=== PATIENT | male | born 1945 | race African-American/Black ===

== ENCOUNTER → 2018-07-12 | Day surgery (SDC) | payer MEDICARE, OTHER ==
[~2018-07-12] MED LIST: ALBU18HF IH; ALBUTEROL SULFATE 2.5 MG/3 ML NEBU. NEB PRN; ATROPINE 0.5 MG/5 ML DISP.SYRIN. IV PRN; FINA5TAB4 PO; FLUT1AER IH; FURO-69 PO; IV RINGERS SOLUTION,LACTATED 1,000 ML IV SCH; LEVO125T5 PO; LIDOCAINE 2% PF Vial for OR 5 ML VIAL. ONE; NALOXONE 0.4 MG/ML VIAL. IV PRN; OMEP40CA5 PO; ONDANSETRON PF 4 MG/2 ML VIAL. IV PRN; PARO20TA99 PO; POTA20TA4 PO; PROPOFOL 40 ML IV ONE; SIMV40TA3 PO; SOLI5TAB2 PO; TERA10CA3 PO
[2018-07-12 11:48] VITALS: BP 152/73
== END | disposition home or self-care (01) ==
LOC: SURG 09:46
PROVIDERS: ATTEND Internal Medicine Gastroenterology
DX: Z12.11 Encounter for screening for malignant neoplasm of colon (principal); Z86.010 Personal history of colon polyps; J45.909 Unspecified asthma, uncomplicated; E03.9 Hypothyroidism, unspecified; K21.9 Gastro-esophageal reflux disease without esophagitis; E78.5 Hyperlipidemia, unspecified; Z87.11 Personal history of peptic ulcer disease; N40.0 Benign prostatic hyperplasia without lower urinary tract symptoms; Z88.0 Allergy status to penicillin; Z98.890 Other specified postprocedural states; Z88.2 Allergy status to sulfonamides; Z88.8 Allergy status to other drugs, medicaments and biological substances; Z88.1 Allergy status to other antibiotic agents; Z79.899 Other long term (current) drug therapy
CPT/HCPCS: G0105; J2704; J7120; J2001

== ENCOUNTER → 2019-01-27 | Outpatient (CLI) | payer MEDICARE, OTHER ==
[2018-07-12 11:48] VITALS: BP 152/73
[~2019-01-27] MED LIST changes: -ALBU18HF IH; +ALBU2.5V8 IH; -ALBUTEROL SULFATE 2.5 MG/3 ML NEBU. NEB PRN; -ATROPINE 0.5 MG/5 ML DISP.SYRIN. IV PRN; -IV RINGERS SOLUTION,LACTATED 1,000 ML IV SCH; -LIDOCAINE 2% PF Vial for OR 5 ML VIAL. ONE; -NALOXONE 0.4 MG/ML VIAL. IV PRN; -ONDANSETRON PF 4 MG/2 ML VIAL. IV PRN; -PROPOFOL 40 ML IV ONE
--- NOTE | 2019-01-27 12:45 | RAD ---
Left lower extremity venous ultrasound, 01/27/2019 : History: Left leg pain Duplex evaluation including grayscale, color flow and spectral Doppler analysis was performed. The femoral and popliteal veins show no filling defects to suggest DVT. The visualized calf veins are unremarkable. IMPRESSION: There is no sonographic evidence of deep vein thrombosis in the left lower extremity Electronically signed by: Joni Gutiérrez MD (01/27/2019 12:42 PM) [facility]
== END | disposition home or self-care (01) ==
LOC: US 11:42
PROVIDERS: ATTEND Family Medicine
DX: M79.605 Pain in left leg (principal)
CPT/HCPCS: 93971

== ENCOUNTER 2019-06-11 00:38 | Observation (INO) | payer MEDICARE, OTHER ==
[~2019-06-11] VITALS: Ht 180.3 cm; Wt 103.4 kg
[~2019-06-11 00:38] MED LIST changes: +OMEP40CA45 PO; -OMEP40CA5 PO
--- NOTE | 2019-06-11 00:43 | ED.ADGEN ---
Past History Past Medical History: Anxiety, Hypertension Past Medical History Tremor Adult General Chief Complaint Chief Complaint ".. .I got this shaking thing.. Dr. Hillman.. gave me a medicine for it.. but I never took it because I read somewhere it could cause .. but I started having shaking and chest pain.. here on the Lt... sometimes it was sharp..." [facility] HPI Patient is a 73 year old male who presents with above hx and complaints of increased tremor and chest pain. Patient has had history of increased tremor for a number of months. Patient recently prescribed a medication which he did not remember but he did not take it to help relieve some of his chronic tremor. Tremors course and appears to be intentional. Is equal in both arms. Patient tonight her stated he developed "tremor "in his chest and chest pain. Pain is localized in sternal area some radiation to right shoulder. Pain reproducible with deep breaths, movement and palpation of sternum. Patient denies any trauma to his chest. Patient denies previous history of chest pain. Patient past history of elevated hypertension and cholesterol. Patient normally follows with Dr. Hillman. Patient states he was due to get a echo of his heart on 06/20 of this year. No history of trauma. No history of cough, no specific ill contacts. Patient does have a history of restless legs at night. Patient does have a history of anxiety disorder. Review of Systems Review of Systems Constitutional: Denies fever or chills [] Eyes: Denies change in visual acuity, redness, or eye pain [] HENT: Denies nasal congestion or sore throat [] Respiratory: Denies cough or shortness of breath [] Cardiovascular: No additional information not addressed in HPI [] GI: Denies abdominal pain, nausea, vomiting, bloody stools or diarrhea [] : Denies dysuria or hematuria [] Musculoskeletal: Denies back pain or joint pain [] Integument: Denies rash or skin lesions [] Neurologic: Denies headache, focal weakness or sensory changes . Patient []has complaints of tremor Endocrine: Denies polyuria or polydipsia [] All other systems were reviewed and found to be within normal limits, except as documented in this note. Family History Family History Noncontributory Current Medications Current Medications See nursing for home meds Allergies Allergies Allergies Coded Allergies Type Severity Reaction Last Updated Verified Penicillins Allergy Unknown 06/29/18 Yes Sulfa (Sulfonamide Antibiotics) Allergy Unknown 06/29/18 Yes ciprofloxacin Allergy Unknown 06/29/18 Yes doxycycline Allergy Unknown 06/29/18 Yes ibuprofen Allergy Unknown 06/29/18 Yes sulfamethoxazole Allergy Unknown 06/29/18 Yes tamsulosin Allergy Unknown 06/29/18 Yes tolterodine Allergy Unknown 06/29/18 Yes trazodone Allergy Unknown 06/29/18 Yes trimethoprim Allergy Unknown 06/29/18 Yes Physical Exam Physical Exam Constitutional: Moderate acute distress, non-toxic appearance. [] HENT: Normocephalic, atraumatic, bilateral external ears normal, oropharynx moist, no oral exudates, nose normal. [] Eyes: PERRLA, EOMI, conjunctiva normal, no discharge. Glasses. Neck: Normal range of motion, no tenderness, supple, no stridor. [] Cardiovascular: Bradycardia Heart rate regular rhythm, no murmur []PMI to the left Lungs & Thorax: Bilateral breath sounds equal apex on auscultation []does have some sternal tenderness on palpation Abdomen: Bowel sounds normal, soft, no tenderness, no masses, no pulsatile masses. [] Obese Skin: Warm, dry, no erythema, no rash. [] Back: No tenderness, no CVA tenderness. [] Extremities: No tenderness, no cyanosis, no clubbing, ROM intact, no edema. [] No cording noted in legs Neurologic: Alert and oriented X 3, moves extremities on request. Distal sensory intact., no focal deficits noted. []Does have an intentional tremor that is worse on intentional fine activity Psychologic: Affect very anxious, judgement normal, mood normal. [] Current Patient Data Vital Signs Vital Signs Date Time Temp Pulse Resp B/P (MAP) Pulse Ox O2 Delivery O2 Flow Rate FiO2 06/11/19 00:49 74 18 148/54 (85) 97 06/11/19 00:38 Room Air EKG EKG Interpretation EKG shows a sinus bradycardia at 60 bpm left axis. Some nonspecific anterior lateral changes. But no findings acute STEMI of contralateral changes[] Radiology/Procedures Radiology/Procedures [][address] [address] IMAGING REPORT Signed PATIENT: HUBERT GARAY BACCOUNT: [id number] : 1945 LOCATION: ER AGE: 73 SEX: M EXAM STATUS: REG ER ORD. PHYSICIAN: LAMBERTO LEON MD REASON: Chest pain PROCEDURE: CHEST PA & LATERAL CHEST PA LATERAL Technique: PA and lateral views of the chest were obtained. Clinical History: Chest pain Comparison: None. Findings: The heart and pulmonary vasculature appear within normal limits. There is peribronchial thickening bilaterally. The pleural margins are clear. There is mild elevation of the left hemidiaphragm. Impression: Peribronchial thickening could be reactive airway disease or viral pneumonia. Electronically signed by: Vijay Hernandez III, MD (06/11/2019 2:53 AM) [facility] [place] DICTATED AND SIGNED BY: VIJAY HERNANDEZ III, MD DATE: 06/11/19 0253 CC: KENNEDY HAYNES MD; LAMBERTO LEON MD ~ Course & Med Decision Making Course & Med Decision Making Pertinent Labs and Imaging studies reviewed. (See chart for details) Discussed presentation, testing and treatment plan with Dr. Nelson. Will admit with Cardiology and Neuro consult. Pt. Heart score 4. [] Final Impression Final Impression 1. CP-somewhat atypical, chest wall like presentation 2. HTN 3. Tremor- appears intentional 4. Elev. Gadiel d/t 1.4/0.3 5. Anxiety Disorder[] Dragon Disclaimer Dragon Disclaimer This electronic medical record was generated, in whole or in part, using a voice recognition dictation system. Dragon Disclaimer This chart was dictated in whole or in part using Voice Recognition software in a busy, high-work load, and often noisy Emergency Department environment. It may contain unintended and wholly unrecognized errors or omissions. LAMBERTO LEON MD Jun 11, 2019 00:43
--- NOTE | 2019-06-11 01:04 | EKG ---
[address] [address] Test Date: 2019-06-11 Test Time: 01:01:37 Pat Name: HUBERT GARAY Department: Room: Gender: M [employer]: : 1945 Requested By: LAMBERTO LEON Order Number: [id number] Reading MD: Measurements Intervals [place] Rate: 60 P: 39 KS: 136 QRS: -15 QRSD: 88 T: 19 QT: 420 QTc: 424 Interpretive Statements SINUS RHYTHM LEFTWARD AXIS R-S TRANSITION ZONE IN V LEADS DISPLACED TO THE RIGHT QRS(T) CONTOUR ABNORMALITY CONSIDER ANTEROLATERAL MYOCARDIAL DAMAGE POSSIBLY ABNORMAL ECG RI6.01 No previous ECG available for comparison
[2019-06-11] MEDS ORDERED: IV RINGERS SOLUTION,LACTATED 1,000 ML IV SCH (01:30)
[2019-06-11] MEDS ORDERED: ASPIRIN 81 MG TAB.CHEW PO ONE (01:30)
[2019-06-11 01:45] LABS: BASO # 0.1 x10^3/uL (0.0-0.2); BASO % 1 % (0-3); EOS # 0.2 x10^3/uL (0.0-0.7); EOS % 3 % (0-3); HEMATOCRIT 40.7 % (39.0-53.0); HEMOGLOBIN 13.4 g/dL (13.0-17.5); LYMPH # 1.4 x10^3/uL (1.0-4.8); LYMPH % 23 % (24-48); MEAN CORPUSCULAR HEMOGLOBIN 31 pg (25-35); MEAN CORPUSCULAR HGB CONC 33 g/dL (31-37); MEAN CORPUSCULAR VOLUME 95 fL (79-100); MONO # 0.6 x10^3/uL (0.0-1.1); MONO % 11 % (0-9); NEUT # 3.7 x10^3uL (1.8-7.7); NEUT % 62 % (31-73); PLATELET COUNT 188 x10^3/uL (140-400); RED BLOOD COUNT 4.29 x10^6/uL (4.30-5.70); RED CELL DISTRIBUTION WIDTH 13.5 % (11.5-14.5); WHITE BLOOD COUNT 5.9 x10^3/uL (4.0-11.0)
[2019-06-11 02:09] LABS: ALBUMIN 3.4 g/dL (3.4-5.0); CALCIUM 8.7 mg/dL (8.5-10.1); CREATININE 0.8 mg/dL (0.7-1.3); DIRECT BILIRUBIN 0.3 mg/dL (0.0-0.2); POTASSIUM 3.7 mmol/L (3.5-5.1); TOTAL BILIRUBIN 1.4 mg/dL (0.2-1.0); TOTAL PROTEIN 6.8 g/dL (6.4-8.2)
[2019-06-11 02:24] LABS: BARBITURATES NEG (NEG); BENZODIAZEPINES NEG (NEG); CANNABINOIDS NEG (NEG); COCAINE NEG (NEG); METHADONE NEG (NEG); OPIATES NEG (NEG); PHENCYCLIDINE NEG (NEG)
[2019-06-11 02:25] LABS: AMPHETAMINE/METHAMPHETAMINE NEG (NEG)
[2019-06-11 02:34] LABS: BACTERIA,URINE 0 /HPF (0-FEW); BILIRUBIN,URINE NEG (NEG); CLARITY,URINE CLEAR; COLOR,URINE YELLOW; GLUCOSE,URINE NEG (NEG); NITRITE,URINE NEG (NEG); RBC,URINE 0 /HPF (0-2); SQUAMOUS EPITHELIAL CELL,UR OCC /LPF; UROBILINOGEN,URINE 0.2 mg/dL (0.2 mg/dL); WBC,URINE 0 /HPF (0-4)
--- NOTE | 2019-06-11 02:55 | RAD ---
CHEST PA LATERAL Technique: PA and lateral views of the chest were obtained. Clinical History: Chest pain Comparison: None. Findings: The heart and pulmonary vasculature appear within normal limits. There is peribronchial thickening bilaterally. The pleural margins are clear. There is mild elevation of the left hemidiaphragm. Impression: Peribronchial thickening could be reactive airway disease or viral pneumonia. Electronically signed by: Nik Chung III, MD (06/11/2019 2:53 AM) [facility]
[2019-06-11] MEDS ORDERED: ACETAMINOPHEN 325 MG TABLET PO PRN (03:15)
[2019-06-11] MEDS ORDERED: ONDANSETRON PF 4 MG/2 ML VIAL. IV PRN (03:15)
[2019-06-11 04:51] VITALS: BP 147/74
[2019-06-11] MEDS ORDERED: ESZO3TAB28 PO (06:56)
[2019-06-11] MEDS ORDERED: ALBUTEROL SULFATE 2.5 MG/3 ML NEBU. IH PRN (07:30)
[2019-06-11] MEDS: ASPIRIN 81 MG TAB.CHEW PO SCH (07:45)
[2019-06-11] MEDS: POTASSIUM CHLORIDE 20 MEQ TABLET.ER. PO SCH (07:45)
[2019-06-11] MEDS: LEVOTHYROXINE 125 MCG TABLET PO SCH (07:45)
[2019-06-11] MEDS: OXYBUTYNIN CHLORIDE 5 MG TABLET PO SCH ×2 (07:45→22:26)
[2019-06-11] MEDS: FINASTERIDE 5 MG TABLET PO SCH (07:45)
[2019-06-11] MEDS: FUROSEMIDE 20 MG TABLET PO SCH (07:45)
[2019-06-11] MEDS: PANTOPRAZOLE 40 MG TABLET. PO SCH (07:45)
[2019-06-11] MEDS: TERAZOSIN 5 MG CAPSULE. PO SCH (07:46)
[2019-06-11] MEDS: ALBUTEROL SULFATE 2.5 MG/3 ML NEBU. NEB SCH ×4 (08:00→20:48)
[2019-06-11] MEDS: BUDESONIDE 0.5 MG/2 ML NEBU NEB SCH ×2 (08:00→20:00)
[2019-06-11] MEDS ORDERED: NON FORMULARY ITEM (Fluticasone/Vilanterol (Breo Ellipta 100-25 Mcg Inh) 1 PUFF) IH SCH (09:00)
[2019-06-11 10:46] LABS: THYROID STIM HORMONE (TSH) 2.726 uIU/mL (0.358-3.740)
[2019-06-11 11:53] VITALS: BP 121/64
--- NOTE | 2019-06-11 12:16 | PDOC2 ---
CONSULT Date of Admission DATE: 06/11/19 TIME: 12:16 Reason for Consult: Chest pain Referring Physician: Dr. Nelson Chief Complaint Chest pain and crawling sensation on the legs Source: Chart review, Patient Problem List Problems Medical Problems: (1) Chest pain Status: Acute History of Present Illness 73-year-old male presented with retrosternal chest pain that he described as sharp in nature not related to exertion or food intake. He also complained of 'crawling sensation' all over his legs. He denied any orthopnea/PND, palpitatio ns or syncope. Past Medical History Hypertension Anxiety Hyperlipidemia Hypothyroidism Social History Patient is a nonsmoker and nondrinker and denied any drug abuse Current Medications Current Medications Aspirin (Children'S Aspirin) 324 mg 1X ONCE PO Last administered on 06/11/19at 01:55; Start 06/11/19 at 01:30; Stop 06/11/19 at 01:31; Status DC Lactated Ringer's 1,000 ml @ 100 mls/hr Q10H IV Last administered on 06/11/19at 01:55; Start 06/11/19 at 01:30; Stop 06/11/19 at 11:29; Status DC Ondansetron HCl (Zofran) 4 mg PRN Q4HRS PRN IV NAUSEA/VOMITING; Start 06/11/19 at 03:15; Stop 06/12/19 at 03:14 Acetaminophen (Tylenol) 650 mg PRN Q4HRS PRN PO FEVER; Start 06/11/19 at 03:15; Stop 06/12/19 at 03:14 Aspirin (Children'S Aspirin) 81 mg DAILY PO Last administered on 06/11/19at 07:45; Start 06/11/19 at 09:00 Albuterol Sulfate (Ventolin) 18 mg PRN Q4HRS PRN IH FOR ASTHMA; Start 06/11/19 at 07:30; Stop 06/11/19 at 07:47; Status DC Finasteride (Proscar) 5 mg DAILY PO Last administered on 06/11/19at 07:45; Start 06/11/19 at 09:00 Furosemide (Lasix) 20 mg DAILY PO Last administered on 06/11/19at 07:45; Start 06/11/19 at 09:00 Levothyroxine Sodium (Synthroid) 125 mcg DAILY06 PO Last administered on 06/11/19at 07:45; Start 06/11/19 at 09:00 Potassium Chloride (Klor-Con) 20 meq DAILY PO Last administered on 06/11/19at 07:45; Start 06/11/19 at 09:00 Simvastatin (Zocor) 40 mg QHS PO ; Start 06/11/19 at 21:00 Zolpidem Tartrate (Ambien) 5 mg QHS PO ; Start 06/11/19 at 21:00 Non-Formulary Medication (Fluticasone/ Vilanterol (Breo Ellipta 100-25 Mcg Inh)) 1 puff DAILY IH ; Start 06/11/19 at 09:00; Stop 06/11/19 at 07:47; Status DC Pantoprazole Sodium (Protonix) 40 mg DAILYAC PO Last administered on 06/11/19at 07:45; Start 06/11/19 at 07:30 Oxybutynin Chloride (Ditropan) 5 mg BID PO Last administered on 06/11/19at 07:45; Start 06/11/19 at 09:00 Terazosin HCl (Hytrin) 10 mg DAILY PO Last administered on 06/11/19at 07:46; Start 06/11/19 at 09:00 Budesonide (Pulmicort) 0.5 mg RTBID NEB ; Start 06/11/19 at 08:00 Albuterol Sulfate (Ventolin) 2.5 mg RTQID NEB ; Start 06/11/19 at 08:00 Active Scripts Active Reported Lunesta (Eszopiclone) 3 Mg Tablet 2 Mg PO HS Finasteride 5 Mg Tablet 1 Tab PO DAILY Levothyroxine Sodium 125 Mcg Tablet 1 Tab PO DAILY Klor-Con M20 (Potassium Chloride) 20 Meq Tab.er.prt 1 Tab PO DAILY Lasix (Furosemide) 20 Mg Tablet 1 Tab PO DAILY Simvastatin 40 Mg Tablet 1 Tab PO QHS Omeprazole 40 Mg Capsule.dr 1 Cap PO DAILY Vesicare (Solifenacin Succinate) 5 Mg Tablet 1 Tab PO DAILY Ventolin Hfa Inhaler (Albuterol Sulfate) 18 Gm Hfa.aer.ad 1 Puff IH PRN Q4HRS PRN Breo Ellipta 100-25 Mcg Inh (Fluticasone/Vilanterol) 1 Each Aer.pow.ba 1 Puff IH DAILY Terazosin Hcl 10 Mg Capsule 1 Cap PO DAILY Allergies: Coded Allergies: Penicillins (Verified Allergy, Unknown, 06/29/18) Sulfa (Sulfonamide Antibiotics) (Verified Allergy, Unknown, 06/29/18) ciprofloxacin (Verified Allergy, Unknown, 06/29/18) doxycycline (Verified Allergy, Unknown, 06/29/18) ibuprofen (Verified Allergy, Unknown, 06/29/18) sulfamethoxazole (Verified Allergy, Unknown, 06/29/18) tamsulosin (Verified Allergy, Unknown, 06/29/18) tolterodine (Verified Allergy, Unknown, 06/29/18) trazodone (Verified Allergy, Unknown, 06/29/18) trimethoprim (Verified Allergy, Unknown, 06/29/18) PSYCHOLOGICAL ROS: No: Hallucinations Eyes: No: Loss of vision HEENT: No: Epistaxis Respiratory: No: Hemoptysis Cardiovascular: yes: Chest Pain Gastrointestinal: No: Vomiting, Diarrhea Genitourinary: No: Henaturia Neurological: No: Seizures Skin: No: Rash General: Alert, Oriented X3 HEENT: Atraumatic, PERRLA Lungs: Clear to auscultation Heart: Regular rate Abdomen: Soft Extremities: No edema Psych/Mental Status: Mood NL VITALS Vital Signs Date Time Temp Pulse Resp B/P (MAP) Pulse Ox O2 Delivery O2 Flow Rate FiO2 06/11/19 11:53 97.9 79 20 121/64 (83) 98 Room Air Labs Laboratory Tests Test 06/11/19 01:15 06/11/19 01:35 06/11/19 01:57 06/11/19 07:00 White Blood Count 5.9 x10^3/uL (4.0-11.0) Red Blood Count 4.29 x10^6/uL (4.30-5.70) Hemoglobin 13.4 g/dL (13.0-17.5) Hematocrit 40.7 % (39.0-53.0) Mean Corpuscular Volume 95 fL (79-100) Mean Corpuscular Hemoglobin 31 pg (25-35) Mean Corpuscular Hemoglobin Concent 33 g/dL (31-37) Red Cell Distribution Width 13.5 % (11.5-14.5) Platelet Count 188 x10^3/uL (140-400) Neutrophils (%) (Auto) 62 % (31-73) Lymphocytes (%) (Auto) 23 % (24-48) Monocytes (%) (Auto) 11 % (0-9) Eosinophils (%) (Auto) 3 % (0-3) Basophils (%) (Auto) 1 % (0-3) Neutrophils # (Auto) 3.7 x10^3uL (1.8-7.7) Lymphocytes # (Auto) 1.4 x10^3/uL (1.0-4.8) Monocytes # (Auto) 0.6 x10^3/uL (0.0-1.1) Eosinophils # (Auto) 0.2 x10^3/uL (0.0-0.7) Basophils # (Auto) 0.1 x10^3/uL (0.0-0.2) Sodium Level 140 mmol/L (136-145) Potassium Level 3.7 mmol/L (3.5-5.1) Chloride Level 103 mmol/L (98-107) Carbon Dioxide Level 28 mmol/L (21-32) Anion Gap 9 (6-14) Blood Urea Nitrogen 11 mg/dL (8-26) Creatinine 0.8 mg/dL (0.7-1.3) Estimated GFR (Cockcroft-Gault) 115.0 Glucose Level 98 mg/dL (70-99) Calcium Level 8.7 mg/dL (8.5-10.1) Magnesium Level 2.0 mg/dL (1.8-2.4) Total Bilirubin 1.4 mg/dL (0.2-1.0) Direct Bilirubin 0.3 mg/dL (0.0-0.2) Aspartate Amino Transf (AST/SGOT) 22 U/L (15-37) Alanine Aminotransferase (ALT/SGPT) 20 U/L (16-63) Alkaline Phosphatase 95 U/L (46-116) Creatine Kinase 205 U/L (39-308) Troponin I Quantitative < 0.017 ng/mL (0-0.055) < 0.017 ng/mL (0-0.055) CH-Bzy-N-Type Natriuretic Peptide 34 pg/mL (0-124) Total Protein 6.8 g/dL (6.4-8.2) Albumin 3.4 g/dL (3.4-5.0) Triglycerides Level 33 mg/dL (0-150) Cholesterol Level 127 mg/dL (0-200) LDL Cholesterol, Calculated 65 mg/dL (0-100) VLDL Cholesterol, Calculated 6 mg/dL (0-40) Non-HDL Cholesterol Calculated 71 mg/dL (0-129) HDL Cholesterol 56 mg/dL (40-60) Cholesterol/HDL Ratio 2.0 Lipase 63 U/L (73-393) Thyroid Stimulating Hormone (TSH) 2.726 uIU/mL (0.358-3.740) Prothrombin Time 11.0 SEC (9.4-11.4) Prothromb Time International Ratio 1.1 (0.9-1.1) Activated Partial Thromboplast Time 27 SEC (23-33) D-Dimer (Dominique) 0.33 mg/L (0.00-0.50) Urine Collection Type Unknown Urine Color Yellow Urine Clarity Clear Urine pH 6.0 Urine Specific [place] 1.010 Urine Protein Neg (NEG-TRACE) Urine Glucose (UA) Neg mg/dL (NEG) Urine Ketones (Stick) Neg mg/dL (NEG) Urine Blood Neg (NEG) Urine Nitrite Neg (NEG) Urine Bilirubin Neg (NEG) Urine Urobilinogen Dipstick 0.2 mg/dL (0.2 mg/dL) Urine Leukocyte Esterase Neg (NEG) Urine RBC 0 /HPF (0-2) Urine WBC 0 /HPF (0-4) Urine Squamous Epithelial Cells Occ /LPF Urine Bacteria 0 /HPF (0-FEW) Urine Opiates Screen Neg (NEG) Urine Methadone Screen Neg (NEG) Urine Barbiturates Neg (NEG) Urine Phencyclidine Screen Neg (NEG) Urine Amphetamine/Methamphetamine Neg (NEG) Urine Benzodiazepines Screen Neg (NEG) Urine Cocaine Screen Neg (NEG) Urine Cannabinoids Screen Neg (NEG) Urine Ethyl Alcohol Neg (NEG) Assessment/Plan 1. Chest pain with atypical features. Myocardial infarction has been ruled out. Plan for outpatient 2-D echo to assess LV function and Lexiscan nuclear stress test to rule out ischemia. 2. Hypertension: Well-controlled 3. Hyperlipidemia: Continue statins 4. Hypothyroidism: On levo thyroxine 5. Tremors, ' crawling sensation' on legs ? Neuropathy: Per IM Thank you for your consultation DELPHINE BARRAZA MD Jun 11, 2019 12:16
[2019-06-11 15:26] VITALS: BP 130/71
--- NOTE | 2019-06-11 17:53 | HP ---
ADMIT DATE: 06/11/2019 HISTORY OF PRESENT ILLNESS: The patient is a 73-year-old -[place] male patient who came to the Emergency Room complaining of chest pain, retrosternal. He has also complained of tremors that have been increasing for the last few months. He was prescribed medication which he did not take. His tremors are coarse and appear to be intentional. They are equal in both arms. The patient developed pain that is localized to the sternal area with some radiation to his left shoulder. The pain is reproducible with deep breath movement on palpation of the sternum. The pain started at rest, lasted only for a few seconds, not associated with any nausea or vomiting. No shortness of breath, no diaphoresis. He was seen in the Emergency Room and was extensively evaluated. His EKG showed that he was in sinus bradycardia at 60 beats per minute, some nonspecific anterolateral changes, but no acute ST segment elevation myocardial infarction. His chest x-ray showed that the heart and pulmonary vasculature appears within normal limits. There is peribronchial thickening bilaterally. The pleural margins are clear. There is mild elevation of the left hemidiaphragm. He has had lab work done. First set of cardiac enzymes showed troponin to be less than 0.017. His white cell count was normal. His prothrombin time, INR, aPTT and D-dimer were normal. Urinalysis was unremarkable and toxic screen was negative. He was admitted to do 2 more sets of cardiac enzyme and to consult the cardiology team. PAST MEDICAL HISTORY: Significant for hypertension, hyperlipidemia, hypothyroidism, bronchial asthma, osteoarthritis, benign prostatic hypertrophy. PAST SURGICAL HISTORY: He did have periumbilical hernia repair when he was 6 years old. ALLERGIES: HE IS ALLERGIC TO PENICILLIN, SULFA DRUGS, CIPROFLOXACIN, DOXYCYCLINE, IBUPROFEN, SULFAMETHOXAZOLE, FLOMAX, DETROL AND TRAZODONE. MEDICATIONS: He is currently on following medications: He is on albuterol sulfate for Ventolin 1 puff every 4 hours, simvastatin 40 mg at bedtime, terazosin 10 mg daily. He is on Lunesta 2 mg at bedtime, potassium chloride 20 mEq daily, furosemide 20 mg p.o. daily, Breo Ellipta 1 puff daily, omeprazole 40 mg once a day, levothyroxine sodium 125 mcg once a day, VESIcare 5 mg daily and finasteride 5 mg once a day. FAMILY HISTORY: He has 2 sisters, are , 1 older sister because of PE and the younger one drug overdose. He has 3 brothers, 1 of alcoholic liver disease and cancer, the other 2 brothers are still alive. His father at the age of 95 because of bladder cancer and mother at the age of 95. The cause of her is not clear. SOCIAL HISTORY: Never , has no children. He does not smoke, drink alcohol or use recreational drugs. He used to work in the [employer] at [place]. He is retired. REVIEW OF SYSTEMS: Denied any blurring of vision. He has bilateral cataracts that did not require surgical intervention. He actually has cataract and glaucoma, but denied any macular degeneration. Denied any earache, tinnitus or sensorineural deafness. Denied any nosebleeds, stuffy nose or postnasal drip. Denied any sore throat, sore tongue, toothache, hoarseness of voice or difficulty swallowing. Denied any nausea, vomiting, diarrhea or constipation. Denied any hematemesis, melena or hematochezia. Denied any dysuria, frequency or hematuria. Did complain of chest pain, but denied any shortness of breath, orthopnea, paroxysmal nocturnal dyspnea. Denied any cough, phlegm or hemoptysis. Denied any chills, rigors or fever. His biggest complaint is back pain. He somehow has distorted image of his back, although I cannot see anything abnormal in particular. He does not have any scoliosis or kyphoscoliosis. He also complained of restless leg syndrome. PHYSICAL EXAMINATION: GENERAL: When I examined him, he looked well and was clearly in no apparent respiratory distress. No pallor, jaundice, cyanosis or thyromegaly. No jugular venous distention. No limb edema. VITAL SIGNS: His heart rate was 70, blood pressure 147/74, temperature was 97.0, respiratory rate 20, and oxygen saturation was 97%. HEAD, EYES, EARS, NOSE AND THROAT: Showed normocephalic, atraumatic. NECK: Supple. HEART: Showed normal first and second heart sounds. No gallop, rub or murmur. CHEST: Clear to auscultation. No crepitation or rhonchi. ABDOMEN: Distended, soft, nontender. No guarding or rigidity. No organomegaly. All hernial orifice intact. Bowel sounds normal. NEUROLOGIC: He was awake, alert, responding appropriately. All cranial nerves intact. EXTREMITIES: He moves extremities without difficulty, ambulates without assistance or assistive devices. LABORATORY DATA: On admission showed that his white cell count was 5900, hemoglobin 13, hematocrit 41, MCV 95, and platelet count of 188,000 with normal manual differential. His prothrombin time, INR and aPTT, D-dimer were all normal. His chemistry showed a serum sodium 140, potassium 3.7, chloride 103, bicarbonate 28, anion gap of 9, BUN 11, creatinine 0.8, estimated GFR was 115 mL per minute. His glucose was 98, calcium was 8.7, magnesium 2. Total bilirubin is 1.4. AST, ALT, alkaline phosphatase were normal. CK was only 205. First set of troponin was less than 0.017. His beta natriuretic peptide was 34. Total protein was 6.8, albumin 3.4. His serum triglycerides were 33, total cholesterol was 127, LDL cholesterol was 65, VLDL was 66, HDL cholesterol of 56, and ratio was 2 only. Lipase was 63 and TSH was normal at 2.726. Urinalysis was unremarkable and toxic screen was negative. His chest x-ray showed that the patient's heart and pulmonary vasculature appeared within normal limits. There is peribronchial thickening bilaterally. The pleural margins are clear. There is mild elevation of the left hemidiaphragm. ASSESSMENT AND PLAN: In summary, this is a 73-year-old male patient who came in with fairly atypical chest pain. First set of cardiac enzyme was less than 0.017. He will be admitted and have 2 more sets of cardiac enzyme. We will consult the cardiology team and decide on further management accordingly. I will also start him for his restless leg syndrome on Requip at night time and see how he does with that. WILLIAM SEGURA MD DR: TRACIE/magda JOB#: [id number] / [id number]
[2019-06-11 20:08] VITALS: BP 126/57
[2019-06-11] MEDS ORDERED: rOPINIRole 0.5 MG TABLET. PO SCH (21:00)
[2019-06-11] MEDS ORDERED: ZOLPIDEM 5 MG TABLET. PO SCH (21:00)
[2019-06-11] MEDS ORDERED: SIMVASTATIN 40 MG TABLET. PO SCH (21:00)
[2019-06-11 23:37] VITALS: BP 118/63
[2019-06-12] MEDS: ALBUTEROL SULFATE 2.5 MG/3 ML NEBU. NEB SCH ×2 (05:29→10:40)
[2019-06-12 05:54] VITALS: BP 118/62
[2019-06-12] MEDS: LEVOTHYROXINE 125 MCG TABLET PO SCH (06:17)
[2019-06-12 06:48] LABS: BASO # 0.1 x10^3/uL (0.0-0.2); BASO % 1 % (0-3); EOS # 0.1 x10^3/uL (0.0-0.7); EOS % 2 % (0-3); HEMATOCRIT 41.8 % (39.0-53.0); LYMPH # 1.4 x10^3/uL (1.0-4.8); LYMPH % 23 % (24-48); MEAN CORPUSCULAR HEMOGLOBIN 32 pg (25-35); MEAN CORPUSCULAR HGB CONC 34 g/dL (31-37); MEAN CORPUSCULAR VOLUME 95 fL (79-100); MONO # 0.6 x10^3/uL (0.0-1.1); MONO % 10 % (0-9); NEUT % 64 % (31-73); PLATELET COUNT 182 x10^3/uL (140-400); RED BLOOD COUNT 4.41 x10^6/uL (4.30-5.70); RED CELL DISTRIBUTION WIDTH 13.5 % (11.5-14.5); WHITE BLOOD COUNT 6.2 x10^3/uL (4.0-11.0)
[2019-06-12 07:10] LABS: ALBUMIN 3.3 g/dL (3.4-5.0); ALBUMIN/GLOBULIN RATIO 0.9 (1.0-1.7); CALCIUM 8.8 mg/dL (8.5-10.1); CREATININE 0.9 mg/dL (0.7-1.3); GFR 100.4; POTASSIUM 3.9 mmol/L (3.5-5.1); TOTAL BILIRUBIN 1.7 mg/dL (0.2-1.0); TOTAL PROTEIN 6.8 g/dL (6.4-8.2)
[2019-06-12] MEDS: FINASTERIDE 5 MG TABLET PO SCH (08:21)
[2019-06-12] MEDS: OXYBUTYNIN CHLORIDE 5 MG TABLET PO SCH (08:22)
[2019-06-12] MEDS: POTASSIUM CHLORIDE 20 MEQ TABLET.ER. PO SCH (08:22)
[2019-06-12] MEDS: ASPIRIN 81 MG TAB.CHEW PO SCH (08:22)
[2019-06-12] MEDS: TERAZOSIN 5 MG CAPSULE. PO SCH (08:22)
[2019-06-12] MEDS: PANTOPRAZOLE 40 MG TABLET. PO SCH (08:22)
[2019-06-12] MEDS: FUROSEMIDE 20 MG TABLET PO SCH (08:22)
[2019-06-12] MEDS: BUDESONIDE 0.5 MG/2 ML NEBU NEB SCH (10:40)
[2019-06-12 11:06] VITALS: BP 115/62
[2019-06-12] MEDS ORDERED: ROPI0.25 PO (13:26)
--- NOTE | 2019-06-12 13:30 | PDOC ---
PROVIDER NOTE PROVIDER NOTE PROVIDER NOTE S: No new events overnight. No further CP O: VSS Lungs clr Heart tones normal No edema. Labs reviewed. Impression: 1. Atypical chest pain with risk factors. Plan: 1. Continue present meds. Will consider outpt echo and MPI to rule out occult CAD. Thanks. ok to DC from CV standpoint. discussed with LOIDA Merino MD Jun 12, 2019 13:30
--- NOTE | 2019-06-12 14:38 | CONS ---
DATE OF CONSULTATION: 06/11/2019 NEUROLOGY CONSULTATION REFERRING PHYSICIAN: Kathie Nelson MD REASON FOR CONSULTATION: Discomfort feeling of the legs, rule out neuropathy versus restless leg syndrome. HISTORY OF PRESENT ILLNESS: This is a 73-year-old right-handed -Swedish male who was admitted through Emergency Room after he presented with chief complaint of recurrent left-sided chest pain without radiation to the shoulders, diaphoresis or shortness of breath. Neuro consult was requested because the patient started having discomfort feeling of both legs yesterday night. He tried to get up of the bed and walk. Then, he felt better. He also complains of intermittent numbness and paresthesia of the feet; however, he denies weakness of the lower extremities, lower back pain, bowel or bladder dysfunctions. The patient denies any recent back injuries or fall. PAST MEDICAL HISTORY: Significant for hypertension, anxiety, hyperlipidemia, hypothyroidism, history of benign prostate hypertrophy. SOCIAL HISTORY: The patient is single. He denies smoking, but he drinks 1 beer monthly. He denies illicit drug use. CURRENT MEDICATIONS: Zolpidem 5 mg daily, simvastatin 40 mg daily, Hytrin 10 mg daily, oxybutynin 5 mg b.i.d., levothyroxine 125 mcg daily, furosemide 20 mg daily, Proscar 5 mg daily, aspirin 81 mg daily, albuterol nebulizer, Pulmicort inhaler, Tylenol and Zofran p.r.n. ALLERGIES: PENICILLIN, SULFA DRUGS, CIPROFLOXACIN, DOXYCYCLINE, IBUPROFEN, SULFAMETHOXAZOLE, TAMSULOSIN, TOLTERODINE, TRAZODONE. REVIEW OF SYSTEMS: A 10-point review of system was performed as mentioned above in history of present illness. PHYSICAL EXAMINATION: GENERAL: Obese, alert male, not in acute distress. He weighs 103 pounds. VITAL SIGNS: Blood pressure 130/71, respiratory rate 20, pulse is 60, temperature is 98.2, oxygen saturation 97% on room air. HEENT: Normocephalic, atraumatic, otherwise unremarkable. NECK: Supple. Negative for carotid bruit, lymphadenopathy or thyromegaly. LUNGS: Clear to A and P. CARDIOVASCULAR: Regular rate and rhythm, normal S1, S2. There is no S3, S4 or murmurs. ABDOMEN: Soft. Bowel sounds positive. EXTREMITIES: Negative for cyanosis, clubbing or pitting edema. NEUROLOGICAL: MENTAL STATUS: The patient is alert and oriented x 3. Speech is fluent. There is no language dysfunction. Memory, judgment and abstract thinking are fair. The patient denies hallucination or delusion. CRANIAL NERVES: Visual nguyen are full. The pupils are reactive to light and accommodation. The extraocular movements are intact. There is no nystagmus. There is no facial motor or sensory deficit. Hearing is intact bilaterally. The palate is elevated symmetrically. Sternocleidomastoid muscles are powerful bilaterally. The patient shrugs his shoulders symmetrically, protrudes his tongue in the midline without fasciculation or atrophy. MOTOR EXAMINATION: No focal muscle bulk was seen. The tone is normal. The strength is 5/5 throughout. Sensory examination revealed diminished pinprick and light touch senses in patchy distributions in both lower extremities. Deep tendon reflexes were symmetric and hypoactive with absent Achilles responses. Gait: The stance is steady. The patient has normal sdmidr-hr-rhvq and cxtk-xk-jjym, rapid alternative movements and rapid repetitive movements. DIAGNOSTIC DATA: Chest x-ray revealed bronchial thickening and probably reactive airway disease or viral pneumonia. LABORATORY DATA: CBC revealed white blood cells of 5.9 thousand, hemoglobin 13.4, hematocrit 40.7, platelet count 188,000. Chemistry revealed sodium of 140, potassium 3.7, chloride 103, CO2 of 28, BUN 11, creatinine 0.8, glucose 98, bilirubin is 1.4. Liver enzymes are normal. Troponin level is normal. Lipid profile is normal. TSH is normal with low lipase at 63. Urinalysis revealed no evidence of urinary tract infections. Urine drug screen is negative. PT is 11, INR 1.1 and PTT is 27 with D-dimer of 0.3. IMPRESSION: 1. Atypical chest pain. 2. Discomfort feeling of the lower extremities, improved by walking, rule out restless leg syndrome versus peripheral neuropathy. RECOMMENDATIONS: 1. We will continue with current medical care. 2. If the patient has similar discomfort tonight, we will start him on small dose of ropinirole 0.25 mg at bedtime. 3. We will arrange for EMG/NCS of the lower extremities to rule out peripheral neuropathy versus lumbosacral radiculopathy. M Dain STEWART MD DR: BAILEY/magda JOB#: [id number] / [id number]
--- NOTE | 2019-06-12 15:32 | DS ---
DATE OF DISCHARGE: 06/12/2019 HOSPITAL COURSE: The patient is a 73-year-old male patient who came with a complaint of retrosternal chest pain, described as sharp in nature and not related to exertion or food intake. He also complained of a crawling sensation all over his legs. He was extensively investigated in the Emergency Room and his first set of cardiac enzyme was less than 0.017, was admitted, has had to do more cardiac enzymes and check his fasting lipid profile and consult the metal sander, has 2 sets of cardiac enzymes that ruled out myocardial infarction. His triglycerides were 33, total cholesterol 127, LDL was 65, VLDL was 6, and HDL cholesterol was 56 and the ratio was 2. His TSH was normal 2.76. He was seen by the neurologist and apparently he was diagnosed with restless syndrome and was discharged and started on Requip. When I saw him today, he looked well and was clearly in no apparent respiratory distress. On questioning him, he denied any further episodes of chest pain. Denied any shortness of breath, orthopnea, paroxysmal nocturnal dyspnea. A decision was made to discharge him home to arrange for a stress test as well as an echocardiogram as an outpatient. PHYSICAL EXAMINATION: GENERAL: When I saw him this afternoon, he looked well and was clearly in no apparent respiratory distress. No pallor, jaundice, cyanosis or thyromegaly. No jugular venous distension. No limb edema. VITAL SIGNS: His heart rate was 59, blood pressure was 115/62, temperature was 97.7, respiratory rate 20, and oxygen saturation was 96% on room air. HEAD, EYES, EARS, NOSE AND THROAT: Normocephalic, atraumatic. NECK: Supple. HEART: Showed normal first and second heart sounds. No gallop or murmur. CHEST: Clear to auscultation. No crepitation or rhonchi. ABDOMEN: Distended, soft, nontender. NEUROLOGIC: He is awake, alert, responding appropriately. All cranial nerves intact. He moves extremities without difficulty, ambulates without assistance or assistive devices. His intake was 1000. No output was recorded. LABORATORY DATA: This morning showed his white cell count was 6200, hemoglobin 14, hematocrit 42, MCV 95, and platelet count 282,000. His chemistry showed a serum sodium 141, potassium 3.9, chloride 105, bicarbonate 28, anion gap of 8, BUN 7, creatinine 0.9, estimated GFR was 100 mL per minute, his glucose was 90, calcium was 8.8. Total bilirubin, AST, ALT, alkaline phosphatase were normal. Total protein was 6.8, albumin was 3.3. His prothrombin time, INR, aPTT and D-dimer are all normal. Urinalysis was essentially unremarkable. Toxic screen was negative and his hepatitis A IgM antibody, hepatitis B surface antigen, hepatitis B core IgM antibody and hepatitis C IgG antibodies were all nonreactive. DISCHARGE MEDICATIONS: The patient was discharged home to continue on Requip 0.5 mg at bedtime. Continue with albuterol sulfate 1 puff every 4 hours, Lunesta 3 mg at bedtime, finasteride 5 mg daily, Breo Ellipta 1 puff daily, furosemide 20 mg once a day, levothyroxine sodium 125 mcg once a day, omeprazole 40 mg daily, potassium chloride 20 mEq once a day, simvastatin 40 mg once a day, solifenacin succinate for VESIcare 5 mg once a day and terazosin 10 mg at bedtime. FINAL DISCHARGE DIAGNOSES: 1. Atypical chest pain, myocardial infarction was ruled out. 2. Hypertension, well controlled. 3. Hyperlipidemia, hypothyroidism, restless leg syndrome for which he was started on Requip. WILLIAM SEGURA MD DR: TRACIE/magda JOB#: [id number] / [id number]
--- NOTE | 2019-06-12 18:54 | PN ---
DATE: REFERRING PHYSICIAN: Dr. Nelson SUBJECTIVE: The patient denies any new medical or neurological complaints; however, he stated he still has intermittent "quivering feeling in the lower extremities, mainly towards the night." He was given ropinirole 0.5 mg last night and he slept comfortably. The patient stated the symptoms usually alleviated by walking. He denies chest pain, shortness of breath or palpitation, dysarthria or dysphagia. OBJECTIVE: GENERAL: Well-developed, well-nourished -[place] male, not in acute distress. VITAL SIGNS: Blood pressure 118/62, respiratory rate 20, pulse is 60 and regular, temperature 98.1, oxygen saturation 96% on room air. HEENT: Normocephalic, atraumatic, otherwise unremarkable. NECK: Supple. Negative for carotid bruit, lymphadenopathy or thyromegaly. LUNGS: Clear to A and P. CARDIOVASCULAR: Regular rate and rhythm, normal S1, S2. There is no S3, S4 or murmurs. ABDOMEN: Soft. Bowel sounds positive. EXTREMITIES: Negative for cyanosis, clubbing or edema. NEUROLOGICAL EXAM: Mental Status: The patient is alert and oriented x 3. Speech is fluent. There is no language dysfunction. Memory, judgment and abstract thinking are normal. The patient denies hallucination or delusion. Cranial nerves are intact. No focal motor deficit. Sensory examination revealed diminished pinprick and light touch senses in patchy distributions in distal lower extremities. Deep tendon reflexes were symmetric and hypoactive with absent Achilles responses. Gait: The stance is steady. The patient has normal syqmzs-xb-zrgh and eshn-yd-hyoi. LABORATORY DATA: CBC revealed white blood cells 6.2 thousand, hemoglobin 14, hematocrit 41.8, platelet count 182,000. Chemistry revealed sodium of 141, potassium 3.9, chloride 105, CO2 of 28, BUN 7, creatinine 0.9, glucose is 90, calcium is 8.8. Troponin level was normal. Cardiac enzymes were normal. IMPRESSION: 1. Atypical chest pain, with normal cardiac enzymes and EKG. 2. Restless leg syndrome. 3. Rule out peripheral neuropathy of the lower extremities. 4. Multiple medical problems including hypertension, hyperlipidemia, hypothyroidism. RECOMMENDATIONS: 1. Continue with current management initiated by Dr. Nelson and Cardiology. 2. Continue with ropinirole 0.5 mg nightly. 3. We will arrange for EMG/NCS of the lower extremities to rule out entrapment neuropathy versus lumbosacral radiculopathy. M Dain STEWART MD DR: BAILEY/magda JOB#: [id number] / [id number]
== END 2019-06-12 14:17 | disposition home or self-care (01) ==
LOC: ER 00:38 → 1 SOUTH 01:00 → INTOOBSV 01:00
PROVIDERS: ADMIT Internal Medicine; ATTEND Internal Medicine
DX: R07.89 Other chest pain (principal); R25.1 Tremor, unspecified; I10 Essential (primary) hypertension; F41.9 Anxiety disorder, unspecified; E78.5 Hyperlipidemia, unspecified; E03.9 Hypothyroidism, unspecified; E80.6 Other disorders of bilirubin metabolism; M19.90 Unspecified osteoarthritis, unspecified site; J45.909 Unspecified asthma, uncomplicated; N40.0 Benign prostatic hyperplasia without lower urinary tract symptoms; Z79.899 Other long term (current) drug therapy; Z88.0 Allergy status to penicillin; Z88.2 Allergy status to sulfonamides; Z88.1 Allergy status to other antibiotic agents; Z88.6 Allergy status to analgesic agent; Z88.8 Allergy status to other drugs, medicaments and biological substances
CPT/HCPCS: 36415; 71046; 80048; 80053; 80061; 80076; 80307; 81001; 82550; 83690; 83735; 83880; 84443; 84484; 85025; 85379; 85610; 85730; 86705; 86709; 86803; 87340; 93005; 94640; 99284; G0238; G0378; G0379; J7120; J7613; J7626; 94760

== ENCOUNTER → 2019-06-20 | Outpatient (CLI) | payer MEDICARE, OTHER ==
[2019-06-12 11:06] VITALS: BP 115/62
[~2019-06-20] MED LIST changes: +ESZO3TAB28 PO; +ROPI0.25 PO; +SIMV40TA18 PO; -SIMV40TA3 PO
--- NOTE | 2019-06-20 16:53 | CARD ---
MR#: [id number] Date of Study: 06/20/2019 Ordering Physician: CESAR NJ, Referring Physician: CESAR NJ, Tech: Concepcion Gupta APPROVED REPORT EXAM: Two-dimensional and M-mode echocardiogram with Doppler and color Doppler. Other Information Quality : AverageHR: 64bpm INDICATION Chest Pain 2D DIMENSIONS RVDd2.8 (2.9-3.5cm)Left Atrium(2D)3.9 (1.6-4.0cm) IVSd0.9 (0.7-1.1cm)Aortic Root(2D)3.4 (2.0-3.7cm) LVDd5.5 (3.9-5.9cm)LVOT Diameter2.1 (1.8-2.4cm) PWd1.1 (0.7-1.1cm)LVDs4.7 (2.5-4.0cm) FS (%) 14.7 %SV44.7 ml LVEF(%)30.9 (>50%) Aortic Valve AoV Peak Davey.145.7cm/sAoV VTI34.2cm AO Peak GR.8.5mmHgLVOT Peak Davey.89.7cm/s LVOT VTI 21.76cmAO Mean GR.5mmHg REYNA (VMAX)2.03gg2MTL (VTI)2.12cm2 Mitral Valve MV E Ivjmlkve05.0cm/sMV DECEL UKJL759yc MV A Dzuqucoo18.1cm/sE/A Ratio1.2 Pulmonary Valve PV Peak Yazspxkj77.7cm/sPV Peak Grad.3mmHg Tricuspid Valve TR P. Wzuklxrs453xq/sRAP AGIGMERM9ldEn TR Peak Gr.03vaVeGSRR64rzRb Pulmonary Vein S1 Ekhfxhib29.1cm/sD2 Jyqfwlnr89.5cm/s LEFT VENTRICLE The left ventricle is normal size. There is borderline to mild concentric left ventricular hypertroph y. The left ventricular systolic function is normal and the ejection fraction is within normal range. The Ejection Fraction is 50-55%. There is normal LV segmental wall motion. Transmitral Doppler flow pattern is Grade II-pseudonormal filling dynamics. RIGHT VENTRICLE The right ventricle is normal size. There is normal right ventricular wall thickness. The right ventr icular systolic function is normal. ATRIA The left atrium is mildly dilated. The right atrium is moderately dilated. The interatrial septum is intact with no evidence for an atrial septal defect or patent foramen ovale as noted on 2-D or Dopple r imaging. AORTIC VALVE The aortic valve is normal in structure and function. Doppler and Color Flow revealed no significant aortic regurgitation. There is no significant aortic valvular stenosis. MITRAL VALVE The mitral valve is normal in structure and function. There is no evidence of mitral valve prolapse. There is no mitral valve stenosis. Doppler and Color-flow revealed trace mitral regurgitation. TRICUSPID VALVE The tricuspid valve is normal in structure and function. Doppler and Color Flow revealed trace tricus pid regurgitation with an estimated PAP of 42 mmHg. There is no tricuspid valve stenosis. PULMONIC VALVE The pulmonic valve is not well visualized. Doppler and Color Flow revealed no pulmonic valvular regur gitation. There is no pulmonic valvular stenosis. GREAT VESSELS The aortic root is normal in size. IVC Doppler evaluation reveals normal flow patterns. PERICARDIAL EFFUSION There is no evidence of significant pericardial effusion. Critical Notification Critical Value: No <Conclusion> The left ventricular systolic function is normal and the ejection fraction is within normal range. Th e Ejection Fraction is 50-55%. There is normal LV segmental wall motion. Doppler and Color Flow revealed trace tricuspid regurgitation with an estimated PAP of 42 mmHg. Signed by : Filipe Gastelum, Electronically Approved : 06/20/2019 16:53:09
== END | disposition home or self-care (01) ==
LOC: ECHO 13:48
PROVIDERS: ATTEND Family Medicine
DX: I11.9 Hypertensive heart disease without heart failure (principal)
CPT/HCPCS: 93306

== ENCOUNTER → 2019-08-03 | Outpatient (CLI) | payer MEDICARE, OTHER ==
[~2019-08-03] MED LIST changes: +REGADENOSON 0.4 MG/5 ML DISP.SYRIN. IV ONE
--- NOTE | 2019-08-03 13:44 | RAD ---
MR#: [id number] Date of Study: 08/03/2019 Ordering Physician: DELPHINE CHAVEZ Referring Physician: FANNY BENTON Tech: RT Cadence (R) (N) APPROVED REPORT Test Type: Pharmacological Stress Nurse/Tech: RT Cadence (R) (N) Cardiac History: No known cardiac Resting Heart Rate: 66 bpm Resting Blood Pressure: 133/62mmHg Pretest Chest Pain: No chest pain Pharm. Details Pharmacologic stress testing was performed using 0.4mg per 5ml of regadenoson given intravenously ove r 7-10 seconds. Stress Symptoms Dyspnea POST EXERCISE Reason for Termination: Infusion complete Max HR: 90 bpm Max Blood Pressure: 134/56mmHg Blood Pressure response to exercise: Normal blood pressure response during stress. Heart Rate response to exercise: increased Chest Pain: No. Arrhythmia: No. ST Change: Yes. SR non specific INTERPRETATION Stress EKG Conclusion: Baseline EKG showed sinus rhythm. No ischemic changes at peak stress. No arr hythmias. Imaging Protocol IMAGE PROTOCOL: Rest Tc-99m/stress Tc-99m 1 day Rest: Stress: Viability: Radiopharm.Tc99m GfntdrbxkTu43e Sestamibi Iztp39vIn 34mCi Duration 15min. 15min. Img Date 08/03/2019 08/03/2019 Inj-Img Rqnl35uxe. 60min. Rest Admin Site:IV - Right AntecubitalAdministrator: RT Cadence (R)(N) Stress Admin Site: IV - Right AntecubitalAdministrator: RT Cadence (R)(N) STRESS DATA End Diast. Vol.123.0mlAv. Heart Rate99.0bpm End Syst. Vol.74.0mlCO Index BSA0.0L/min Myocardial Grfo943.0gEject. Vmyscefj76.0% Stress Rates Pk. Fill Rate1.78EDV/secLVtime Pk. Fill 163.11msec Pk. Empty Rate2.88ESV/secLVtime Pk. Wdqgq292.54msec 08/18 Pk. Fill0.66EDV/sec Stress Scores Regional WT3.00Summed WT37.00 Regional WM0.00Summed WM28.00 LV Perfusion Scintigraphic images showed diaphragmatic attenuation artifact without any other fixed or reversible defects Wall Motion Moderate left ventricular systolic dysfunction with ejection fraction calculated at 38%. LV Perf. Quant 17 Seg. SSS1.00 17 Seg. SRS8.00 17 Seg. SDS0.00 Stress Defect Extent (% LAD)0.00Rest Defect Extent (% LAD)6.30Rev. Defect Extent (% LAD)0.00 Stress Defect Extent (% LCX) 0.00Rest Defect Extent (% LCX)2.50Rev. Defect Extent (% LCX)0.00 Stress Defect Extent (% RCA)0.00Rest Defect Extent (% RCA)30.00Rev. Defect Extent (% RCA)0.00 Stress Defect Extent (% ALVAREZ)0.00Rest Defect Extent (% ALVAREZ)18.00Rev. Defect Extent (% ALVAREZ)0.00 Conclusion 1. Regadenoson cardioisotope stress test showed diaphragmatic attenuation artifact without any eviden ce of ischemia or infarct. 2. Moderate left ventricular systolic dysfunction with ejection fraction calculated at 38%. 3. Moderate risk for cardiac events. Signed by : Delphine Chavez, Electronically Approved : 08/03/2019 13:43:40
== END | disposition home or self-care (01) ==
LOC: NM 08:18
PROVIDERS: ATTEND Internal Medicine Cardiovascular Disease
DX: R07.9 Chest pain, unspecified (principal)
CPT/HCPCS: 78452; 93017; A9500; J2785

== ENCOUNTER → 2019-09-08 | Outpatient (CLI) | payer MEDICARE, OTHER ==
[~2019-09-08] MED LIST changes: -REGADENOSON 0.4 MG/5 ML DISP.SYRIN. IV ONE
--- NOTE | 2019-09-08 13:33 | RAD ---
MR#: [id number] Date of Study: 09/08/2019 Ordering Physician: DELPHINE BARRAZA, Referring Physician: Olivia BENTON: Magda Gross RDMS RVT APPROVED REPORT Patient Location : OUT-PATIENT Indications Varicose Veins Grayscale images the bilateral saphenofemoral junctions are grossly unremarkable. The right and left great saphenous veins do not show any evidence of reflux. The bilateral lesser saphenous veins are al so negative for reflux. Critical Notification Critical Value: No <Conclusion> No significant reflux. Signed by : Filipe Gastelum, Electronically Approved : 09/08/2019 13:32:27
== END | disposition home or self-care (01) ==
LOC: US 09:29
PROVIDERS: ATTEND Internal Medicine Cardiovascular Disease
DX: I87.2 Venous insufficiency (chronic) (peripheral) (principal)
CPT/HCPCS: 93970

== ENCOUNTER → 2019-11-17 | Outpatient (CLI) | payer MEDICARE, OTHER ==
[2019-11-17 11:15] LABS: BASO # 0.1 x10^3/uL (0.0-0.2); BASO % 1 % (0-3); EOS # 0.1 x10^3/uL (0.0-0.7); EOS % 3 % (0-3); HEMATOCRIT 43.2 % (39.0-53.0); HEMOGLOBIN 14.4 g/dL (13.0-17.5); LYMPH # 1.6 x10^3/uL (1.0-4.8); LYMPH % 32 % (24-48); MEAN CORPUSCULAR HEMOGLOBIN 31 pg (25-35); MEAN CORPUSCULAR HGB CONC 33 g/dL (31-37); MEAN CORPUSCULAR VOLUME 94 fL (79-100); MONO # 0.6 x10^3/uL (0.0-1.1); MONO % 11 % (0-9); NEUT # 2.8 x10^3uL (1.8-7.7); NEUT % 54 % (31-73); PLATELET COUNT 189 x10^3/uL (140-400); RED BLOOD COUNT 4.59 x10^6/uL (4.30-5.70); RED CELL DISTRIBUTION WIDTH 12.9 % (11.5-14.5); WHITE BLOOD COUNT 5.1 x10^3/uL (4.0-11.0)
[2019-11-17 11:22] LABS: ALBUMIN 3.4 g/dL (3.4-5.0); CALCIUM 9.2 mg/dL (8.5-10.1); CREATININE 0.9 mg/dL (0.7-1.3); GFR 100.1; POTASSIUM 3.9 mmol/L (3.5-5.1); TOTAL BILIRUBIN 2.2 mg/dL (0.2-1.0); TOTAL PROTEIN 6.7 g/dL (6.4-8.2)
== END ==
LOC: LAB 10:15
PROVIDERS: ATTEND Clinical Nurse Specialist Psychiatric/Mental Health, Adult
DX: Z79.899 Other long term (current) drug therapy (principal)
CPT/HCPCS: 36415; 80053; 80061; 84146; 85025

== ENCOUNTER → 2020-04-01 | Outpatient (CLI) | payer MEDICARE, OTHER ==
--- NOTE | 2020-04-01 14:16 | RAD ---
EXAM: Lumbar spine, 3 views. HISTORY: Pain. COMPARISON: None. FINDINGS: 3 views of the lumbar spine are obtained. There is no significant listhesis. There is degenerative endplate remodeling and disc space narrowing at the mid and lower lumbar levels. There is multilevel facet arthropathy. IMPRESSION: Multilevel degenerative change, primarily at the lower lumbar levels. No acute osseous finding. Electronically signed by: Xochilt Maguire MD (04/01/2020 2:13 PM) [id number]
== END | disposition home or self-care (01) ==
LOC: PMG 12:23
PROVIDERS: ATTEND Family Medicine
DX: M47.816 Spondylosis without myelopathy or radiculopathy, lumbar region (principal); M48.061 Spinal stenosis, lumbar region without neurogenic claudication; M25.512 Pain in left shoulder
CPT/HCPCS: 72100

== ENCOUNTER → 2020-04-26 | Outpatient (CLI) | payer OTHER ==
--- NOTE | 2020-04-26 14:44 | RAD ---
EXAM: Abdomen, 2 views. HISTORY: Pain. COMPARISON: None. FINDINGS: 2 views of the abdomen are obtained. There is a large amount of stool throughout the colon. There is a prominent air-filled loops of bowel within the midabdomen. There is no evidence of obstruction. There is no free air. IMPRESSION: Large amount of colonic stool and nonspecific air-filled bowel within the midabdomen. Correlate for constipation. Electronically signed by: Xochilt Maguire MD (04/26/2020 2:41 PM) [id number]
== END | disposition home or self-care (01) ==
LOC: PMG 14:03
PROVIDERS: ATTEND Family Medicine
DX: R10.32 Left lower quadrant pain (principal)
CPT/HCPCS: 74019

== ENCOUNTER → 2020-07-19 | Outpatient (CLI) | payer OTHER ==
--- NOTE | 2020-07-19 16:50 | RAD ---
EXAM: Right knee, 2 views. HISTORY: Pain. COMPARISON: None. FINDINGS: 2 views of the right knee are obtained. There is medial compartment joint space narrowing and tricompartmental spurring. There is medial and lateral compartment chondrocalcinosis. There is a small joint effusion. IMPRESSION: 1. Mild medial compartment predominant osteoarthritis of the right knee with small joint effusion. 2. No acute osseous finding. Electronically signed by: Xochilt Maguire MD (07/19/2020 2:04 PM) [facility]
== END ==
LOC: RAD 11:51
PROVIDERS: ATTEND Family Medicine
DX: M17.11 Unilateral primary osteoarthritis, right knee (principal); M25.461 Effusion, right knee; M11.261 Other chondrocalcinosis, right knee
CPT/HCPCS: 73560

== ENCOUNTER → 2020-10-22 | Outpatient (CLI) | payer MEDICARE, OTHER ==
--- NOTE | 2020-10-22 11:36 | RAD ---
EXAM: Bilateral lower extremity venous Doppler sonogram. HISTORY: Pain and swelling. TECHNIQUE: Lester scale and color Doppler sonographic evaluation of the bilateral lower extremity veins with spectral waveform analysis was performed. FINDINGS: There is normal color flow, normal compressibility and there are normal spectral waveforms in the common femoral, superficial femoral, popliteal, posterior tibial and greater saphenous veins. There are prominent inguinal lymph nodes which are likely reactive in etiology. IMPRESSION: No Doppler evidence of lower extremity deep venous thrombosis. Electronically signed by: Xochilt Maguire MD (10/22/2020 11:33 AM) [id number]
== END ==
LOC: US 10:45
PROVIDERS: ATTEND Family Medicine
DX: R60.0 Localized edema (principal)
CPT/HCPCS: 93970

== ENCOUNTER → 2021-01-28 | Outpatient (CLI) | payer MEDICARE, OTHER ==
[~2021-01-28] MED LIST changes: -OMEP40CA45 PO; +OMEP40CA7 PO
--- NOTE | 2021-01-28 13:46 | RAD ---
CT of the lumbar spine without contrast 01/28/2021 INDICATION: Low back pain COMPARISON STUDY: None TECHNIQUE: Multidetector CT imaging of the lumbar spine was performed without contrast FINDINGS: No evidence of acute fracture or alignment abnormality is identified. Vertebral body height s are maintained. Degenerative disc space narrowing is seen at L3-are seen at these lev4, and L5-S1, with small posterior projecting disc osteophyte complexes. No walter bony neural foraminal narrowing i s identified. No spondylolysis or spondylolisthesis is seen. There is diffuse facet arthrosis, more p rominent in the inferior lumbar spine. No bony narrowing of the spinal canal is identified. No acute soft tissue changes are seen. IMPRESSION: Mild degenerative changes of the lumbar spine without evidence of acute osseous CT DOSING PQRS STATEMENT: One or more of the following individualized dose reduction techniques were utilized for this examinat ion: 1. Automated exposure control 2. Adjustment of the mA and/or kV according to patient size 3. Use of iterative reconstruction technique Electronically signed by: Samson Escobedo MD (01/28/2021 1:44 PM) [id number]
== END ==
LOC: CT 12:33
PROVIDERS: ATTEND Psychiatry & Neurology Neurology
DX: M47.26 Other spondylosis with radiculopathy, lumbar region (principal); G64 Other disorders of peripheral nervous system; M48.061 Spinal stenosis, lumbar region without neurogenic claudication
CPT/HCPCS: 72131

== ENCOUNTER → 2021-02-20 | Outpatient (CLI) | payer MEDICARE, OTHER ==
--- NOTE | 2021-02-20 09:22 | RAD ---
Exam Date: 02/20/2021 9:01 AM XR ABDOMEN 2V Indication: Reason: RUQ ABDOMEN PAIN / Spl. Instructions: / History: . COMPARISON: April 26, 2020 FINDINGS/ IMPRESSION: Supine and upright views are submitted. There are air-filled distended loops of small bowel up to 3.8 cm in diameter. Air and a large amount of fecal matter is seen within the colon. Findings are suggestive of ileus, though early or partial small bowel obstruction could have a similar appearance. Degenerative changes seen in the spine and pelvis. Electronically signed by: Matteo Cope MD (02/20/2021 9:19 AM) [id number]
== END ==
LOC: RAD 08:55
PROVIDERS: ATTEND Physician Assistant
DX: R10.11 Right upper quadrant pain (principal)
CPT/HCPCS: 74019

== ENCOUNTER → 2021-02-25 | Outpatient (CLI) | payer MEDICARE, OTHER ==
--- NOTE | 2021-02-25 15:19 | CARD ---
MR#: [id number] Date of Study: 02/25/2021 Ordering Physician: DELPHINE CHAVEZ, Referring Physician: DELPHINE CHAVEZ, Tech: Nik Redmond [facility] APPROVED REPORT EXAM: Two-dimensional and M-mode echocardiogram with Doppler and color Doppler. Other Information Quality : AverageHR: 61bpm Rhythm : NSR INDICATION Hypertension/HCVD RISK FACTORS Hypertension 2D DIMENSIONS Left Atrium(2D)3.9 (1.6-4.0cm)IVSd1.1 (0.7-1.1cm) Aortic Root(2D)3.7 (2.0-3.7cm)LVDd5.4 (3.9-5.9cm) LVOT Diameter2.0 (1.8-2.4cm)PWd1.1 (0.7-1.1cm) LVDs3.3 (2.5-4.0cm)FS (%) 38.9 % SV96.8 mlLVEF(%)68.8 (>50%) Aortic Valve AoV Peak Davey.128.2cm/sAoV VTI29.1cm AO Peak GR.6.6mmHgLVOT Peak Davey.93.5cm/s LVOT VTI 23.14cmAO Mean GR.3mmHg REYNA (VMAX)2.89ij8SNB (VTI)2.54cm2 Mitral Valve MV E Fpefgwcz15.3cm/sMV E Peak Gr.2mmHg MV DECEL [id number] A Pqcdxhyg73.0cm/s MV E Mean Gr.1mmHgE/A Ratio1.0 Pulmonary Valve PV Peak Rrwcparw13.9cm/sPV Peak Grad.3mmHg Tricuspid Valve TR P. Sytwyxhi005fb/sTR Peak Gr.23mmHg Pulmonary Vein S1 Cjflzrgd66.8cm/sD2 Acssliyy36.5cm/s LEFT VENTRICLE The left ventricle is normal size. There is normal left ventricular wall thickness. The left ventricu lar systolic function is normal. The ejection fraction is 55-60%. There is normal LV segmental wall m otion. Transmitral Doppler flow pattern is Grade II-pseudonormal filling dynamics. No left ventricle thrombus noted on this study. There is no ventricular septal defect visualized. There is no mass note d in the left ventricle. RIGHT VENTRICLE The right ventricle is normal size. There is normal right ventricular wall thickness. The right ventr icular systolic function is normal. ATRIA The left atrium is moderately dilated. The right atrium is mildly dilated. The interatrial septum is intact with no evidence for an atrial septal defect or patent foramen ovale as noted on 2-D or Dopple r imaging. AORTIC VALVE The aortic valve is probably trileaflet. The aortic valve is normal in structure and function. Dopple r and Color Flow revealed no significant aortic regurgitation. There is no significant aortic valvula r stenosis. There is no aortic valvular vegetation. MITRAL VALVE The mitral valve is normal in structure and function. There is no evidence of mitral valve prolapse. There is no mitral valve stenosis. Doppler and Color-flow revealed trace mitral regurgitation. TRICUSPID VALVE The tricuspid valve is normal in structure and function. Doppler and Color Flow revealed trace to mil d tricuspid regurgitation. There is no tricuspid valve prolapse or vegetation. There is no tricuspid valve stenosis. PULMONIC VALVE The pulmonary valve is normal in structure and function. Doppler and Color Flow revealed no pulmonic valvular regurgitation. There is no pulmonic valvular stenosis. GREAT VESSELS The aortic root is normal in size. The ascending aorta is normal in size. The pulmonary artery is nor mal. The IVC is normal in size and collapses >50% with inspiration. PERICARDIAL EFFUSION There is no pleural effusion. There is no evidence of significant pericardial effusion. Critical Notification Critical Value: No <Conclusion> The left ventricular systolic function is normal. The ejection fraction is 55-60%. There is normal LV segmental wall motion. Transmitral Doppler flow pattern is Grade II-pseudonormal filling dynamics. Trace mitral regurgitation. Trace to mild tricuspid regurgitation. There is no evidence of significant pericardial effusion. Signed by : Delphine Chavez, Electronically Approved : 02/25/2021 15:19:09
== END ==
LOC: ECHO 09:22
PROVIDERS: ATTEND Internal Medicine Cardiovascular Disease
DX: I36.1 Nonrheumatic tricuspid (valve) insufficiency (principal); I10 Essential (primary) hypertension
CPT/HCPCS: 93306

== ENCOUNTER 2021-06-05 08:35 | Emergency (ER) | payer MEDICARE, OTHER ==
[~2021-06-05] VITALS: Ht 180.3 cm; Wt 90.9 kg
[~2021-06-05 08:35] MED LIST changes: +POTA-121 PO; -POTA20TA4 PO
--- NOTE | 2021-06-05 09:43 | PHYS DOC ---
Past History Past Medical History: Anxiety, Hypertension Additional Past Medical Histor: CATARCTS, HERNIA Past Surgical History: Other Additional Past Surgical Histo: hernia repair Alcohol Use: Rarely Drug Use: None Adult General Chief Complaint Chief Complaint: ABDOMINAL PAIN HPI HPI Patient is a is a 75-year-old male who presents with abdominal pain for the past 2 days. The pain started when he woke up on Wednesday. It started on the right side moved to the left and it occasionally radiates down to his groin. This type of pain never happened to him before the pain is constant and worse with movement. Nothing makes the pain better and it is aching sharp and in c haracter. Pain is 7 out of 10 in severity. He denies chest pain, shortness of breath, fever, chills, nausea, vomiting, constipation, or diarrhea. He had a hernia repair when he was 6 years old. He has a past medical history of asthma and hypertension and kidney stones. In terms of allergies he gets a rash with sulfa and shortness of breath with penicillin. He is currently taking cephalexin. Review of Systems Review of Systems Fourteen body systems of review of systems have been reviewed. See HPI for pertinent positives and negative responses, other salgado all other systems are negative, non-pertinent or non-contributory Allergies Allergies Allergies Coded Allergies Type Severity Reaction Last Updated Verified Penicillins Allergy Unknown 06/05/21 Yes Sulfa (Sulfonamide Antibiotics) Allergy Unknown 06/29/18 Yes ciprofloxacin Allergy Unknown 06/29/18 Yes doxycycline Allergy Unknown 06/29/18 Yes ibuprofen Allergy Unknown 06/29/18 Yes sulfamethoxazole Allergy Unknown 06/29/18 Yes tamsulosin Allergy Unknown 06/29/18 Yes tolterodine Allergy Unknown 06/29/18 Yes trazodone Allergy Unknown 06/29/18 Yes trimethoprim Allergy Unknown 06/29/18 Yes Physical Exam Physical Exam Constitutional: Well developed, well nourished, no acute distress, non-toxic appearance. HENT: Normocephalic, atraumatic, bilateral external ears normal, oropharynx moist, no oral exudates, nose normal. Eyes: PERRLA, EOMI, conjunctiva normal, no discharge. Neck: Normal range of motion, no tenderness, supple, no stridor. Cardiovascular: Heart rate regular, sinus rhythm, no murmurs rubs or gallops Lungs & Thorax: Bilateral breath sounds clear to auscultation Abdomen: Bowel sounds normal, soft, generalized tenderness without guarding or rebound, no masses, no pulsatile masses. Nonsurgical abdomen, no peritoneal signs Skin: Warm, dry, no erythema, no rash. Back: No tenderness, no CVA tenderness. Extremities: No tenderness, no cyanosis, no clubbing, ROM intact, no edema. Neurologic: Alert and oriented X 3, grossly normal motor & sensory function, no focal deficits noted. Psychologic: Affect normal, judgement normal, mood normal. Current Patient Data Vital Signs Vital Signs Date Time Temp Pulse Resp B/P (MAP) Pulse Ox O2 Delivery O2 Flow Rate FiO2 06/05/21 08:51 97.8 82 18 149/59 (89) 99 Room Air Lab Results Laboratory Tests Test 06/05/21 10:00 06/05/21 10:10 White Blood Count 6.5 x10^3/uL Red Blood Count 4.74 x10^6/uL Hemoglobin 14.7 g/dL Hematocrit 44.3 % Mean Corpuscular Volume 94 fL Mean Corpuscular Hemoglobin 31 pg Mean Corpuscular Hemoglobin Concent 33 g/dL Red Cell Distribution Width 13.1 % Platelet Count 175 x10^3/uL Neutrophils (%) (Auto) 65 % Lymphocytes (%) (Auto) 22 % Monocytes (%) (Auto) 10 % Eosinophils (%) (Auto) 3 % Basophils (%) (Auto) 1 % Neutrophils # (Auto) 4.2 x10^3uL Lymphocytes # (Auto) 1.4 x10^3/uL Monocytes # (Auto) 0.6 x10^3/uL Eosinophils # (Auto) 0.2 x10^3/uL Basophils # (Auto) 0.1 x10^3/uL Sodium Level 141 mmol/L Potassium Level 3.9 mmol/L Chloride Level 105 mmol/L Carbon Dioxide Level 28 mmol/L Anion Gap 8 Blood Urea Nitrogen 9 mg/dL Creatinine 0.8 mg/dL Estimated GFR (Cockcroft-Gault) 114.3 BUN/Creatinine Ratio 11 Glucose Level 95 mg/dL Calcium Level 9.1 mg/dL Total Bilirubin 2.6 mg/dL Aspartate Amino Transf (AST/SGOT) 19 U/L Alanine Aminotransferase (ALT/SGPT) 21 U/L Alkaline Phosphatase 92 U/L Troponin I Quantitative < 0.017 ng/mL Total Protein 6.5 g/dL Albumin 3.5 g/dL Albumin/Globulin Ratio 1.2 Lipase 31 U/L Urine Collection Type Unknown Urine Color Yellow Urine Clarity Clear Urine pH 5.0 Urine Specific [place] 1.020 Urine Protein Neg Urine Glucose (UA) Neg mg/dL Urine Ketones (Stick) 15 mg/dL Urine Blood Neg Urine Nitrite Neg Urine Bilirubin Neg Urine Urobilinogen Dipstick 0.2 mg/dL Urine Leukocyte Esterase Neg Urine RBC 0 /HPF Urine WBC Occ /HPF Urine Squamous Epithelial Cells Few /LPF Urine Bacteria 0 /HPF Current Medications Medications (Trade) Dose Ordered Sig/Nadege Route PRN Reason Start Time Stop Time Status Last Admin Dose Admin Iohexol (Omnipaque 300 Mg/ml) 75 ml 1X ONCE IV 06/05/21 10:30 06/05/21 10:37 DC 06/05/21 10:54 Info (Do NOT chart on this entry -- for MONITORING) 1 each PRN DAILY PRN MC SEE COMMENTS 06/05/21 10:45 06/07/21 10:44 EKG EKG EKG ordered and interpreted by myself at 1000 hrs. as sinus rhythm at 60 bpm, unremarkable intervals, left axis deviation, no acute ischemic findings, no STEMI Radiology/Procedures Radiology/Procedures INDICATION: Reason: llq pain / Spl. Instructions: / History: COMPARISON: Abdomen pain film February 20, 2021 TECHNIQUE: Axial CT images were obtained through the abdomen and pelvis with intravenous contrast. One or more of the following individualized dose reduction techniques were utilized for this examination: 1. Automated exposure control; 2. Adjustment of the mA and/or kV according to patient size; 3. Use of iterative reconstruction technique. FINDINGS: Mild basilar atelectasis. Vascular: Scattered plaque within the vasculature. Fat-containing left inguinal hernia. Hepatobiliary: Subcentimeter low-density lesion within the right lobe the liver which is too small to characterize. Pancreas: No peripancreatic edema. Spleen: Spleen unremarkable. Renal/Bladder: No hydronephrosis. Urinary bladder has minimal urine within it at time of exam and is thick wall. Enlarged prostate. Calcification within the right side of the urinary bladder measuring 7 mm which could be secondary to a stone. Gastrointestinal: Portion of the sigmoid colon is displaced into the left upper quadrant the abdomen appearance. There is dilatation of the sigmoid colon at this site measuring up to about 6 cm. There is a transition point to smaller size of distal colon within the left upper quadrant with an adjacent transition seen within the bowel proximal and abutting this site. The rest of the colon is distended with stool. There is some tortuosity of the mesentery within the region as well. Suspected mild inflammatory changes adjacent to a small portion of the colon left lower quadrant abutting the inguinal canal. Degenerative changes the spine with multilevel central canal and neural foraminal stenosis. Degenerative changes of hips. IMPRESSION: * Portion of the sigmoid colon is distended and displaced into the left upper quadrant of the abdomen with a tortuous appearance. There is a couple of transition points adjacent to one another involving the sigmoid colon both proximal and distal to this site within the left upper quadrant of the abdomen. Differential considerations for this finding would include partial sigmoid volvulus with another possible cause including internal hernia with partial colonic obstruction. 2 transition points in the left upper quadrant. More proximal to this site there is distention of the colon with stool and gas. This is predominantly a colonic process with the majority of the small bowel bowel loops appearing nondilated at this time. The acuity of these findings are unknown since the patient has had dilated loops of bowel on prior plain films. * There is also small amount of inflammatory changes adjacent to a portion of the colon in the left lower quadrant and causes such as a superimposed mild diverticulitis or epiploic appendicitis is also possible. * Wall thickening of the urinary bladder as well as a stone within the urinary bladder. This wall thickening could be secondary to causes such as chronic partial bladder outlet obstruction given patient's enlarged prostate but other causes such as a bladder wall mass or cystitis not excluded given this thickening.. Electronically signed by: Dontae Yadav MD (06/05/2021 11:29 AM) DESKTOP- [id number] Heart Score C/O Chest Pain: No HEART Score for Chest Pain: HEART Score for Chest Pain Response (Comments) Value History Slighlty/Non-Suspicious 0 ECG Normal 0 Age > 65 2 Risk Factors >3 Risk Factors or Hx CAD 2 Total 4 Risk Factors: Risk Factors: DM, Current or recent (<one month) smoker, HTN, HLP, family history of CAD, obesity. Risk Scores: Risk Factors: DM, Current or recent (<one month) smoker, HTN, HLP, family history of CAD, obesity. Course & Med Decision Making Course & Med Decision Making ABCs unremarkable HPI physical exam and comprehensive ER work-up concerning for various intra- abdominal abnormalities such as sigmoid volvulus, diverticulitis versus epiploic appendicitis and potential urologic abnormalities I contacted [facility] and discussed need for hospital transfer, patient was excepted under their care for inpatient surgical and urologic con sultations Patient remained n.p.o., tolerated IV fluid and IV antibiotics administered in ER setting. Serial abdominal exams performed with no gross changes prior to ER transfer to [facility] for inpatient admission Dragon Disclaimer Dragon Disclaimer This electronic medical record was generated, in whole or in part, using a voice recognition dictation system. Departure Departure: Impression: Primary Impression: Sigmoid volvulus Additional Impression: Abnormal findings on diagnostic imaging of abdomen Disposition: 02 [facility] ([facility]) Admitting Physician: Other (dr lopes) Condition: STABLE Referrals: CESAR [place] MD (PCP) Problem Qualifiers GAL ORTIZ DO Jun 05, 2021 09:43
--- NOTE | 2021-06-05 09:52 | EKG ---
[address] [address] Test Date: 2021-06-05 Test Time: 09:44:16 Pat Name: HUBERT GARAY Department: Room: Gender: M [employer]: KARAN : 1945 Requested By: GAL ORTIZ Order Number: [id number] Reading MD: Filipe Gastelum MD Measurements Intervals [place] Rate: 60 P: 43 IA: 130 QRS: -13 QRSD: 94 T: 30 QT: 424 QTc: 424 Interpretive Statements SINUS RHYTHM VENTRICULAR PREMATURE COMPLEX(ES) Electronically Signed On 06-09-2021 11:44:12 CDT by Filipe Gastelum MD
[2021-06-05] MEDS ORDERED: IOHEXOL 300 MG/ML 75 ML VIAL. IV ONE (10:30)
[2021-06-05 10:42] LABS: BASO # 0.1 x10^3/uL (0.0-0.2); BASO % 1 % (0-3); CALCIUM 9.1 mg/dL (8.5-10.1); CREATININE 0.8 mg/dL (0.7-1.3); EOS # 0.2 x10^3/uL (0.0-0.7); EOS % 3 % (0-3); GFR 114.3; HEMATOCRIT 44.3 % (39.0-53.0); HEMOGLOBIN 14.7 g/dL (13.0-17.5); LYMPH # 1.4 x10^3/uL (1.0-4.8); LYMPH % 22 % (24-48); MEAN CORPUSCULAR HEMOGLOBIN 31 pg (25-35); MEAN CORPUSCULAR HGB CONC 33 g/dL (31-37); MEAN CORPUSCULAR VOLUME 94 fL (79-100); MONO # 0.6 x10^3/uL (0.0-1.1); MONO % 10 % (0-9); NEUT # 4.2 x10^3uL (1.8-7.7); NEUT % 65 % (31-73); PLATELET COUNT 175 x10^3/uL (140-400); POTASSIUM 3.9 mmol/L (3.5-5.1); RED BLOOD COUNT 4.74 x10^6/uL (4.30-5.70); RED CELL DISTRIBUTION WIDTH 13.1 % (11.5-14.5); WHITE BLOOD COUNT 6.5 x10^3/uL (4.0-11.0)
[2021-06-05] MEDS ORDERED: CONTRAST GIVEN. MC PRN (10:45)
[2021-06-05 10:48] LABS: ALBUMIN 3.5 g/dL (3.4-5.0); ALBUMIN/GLOBULIN RATIO 1.2 (1.0-1.7); TOTAL BILIRUBIN 2.6 mg/dL (0.2-1.0); TOTAL PROTEIN 6.5 g/dL (6.4-8.2)
[2021-06-05 11:24] LABS: BACTERIA,URINE 0 /HPF (0-FEW); BILIRUBIN,URINE NEG (NEG); CLARITY,URINE CLEAR; COLOR,URINE YELLOW; GLUCOSE,URINE NEG (NEG); NITRITE,URINE NEG (NEG); RBC,URINE 0 /HPF (0-2); SQUAMOUS EPITHELIAL CELL,UR FEW /LPF; UROBILINOGEN,URINE 0.2 mg/dL (0.2 mg/dL); WBC,URINE OCC /HPF (0-4)
--- NOTE | 2021-06-05 11:31 | RAD ---
INDICATION: Reason: llq pain / Spl. Instructions: / History: COMPARISON: Abdomen pain film February 20, 2021 TECHNIQUE: Axial CT images were obtained through the abdomen and pelvis with intravenous contrast. One or more of the following individualized dose reduction techniques were utilized for this examinat ion: 1. Automated exposure control; 2. Adjustment of the mA and/or kV according to patient size; 3 . Use of iterative reconstruction technique. FINDINGS: Mild basilar atelectasis. Vascular: Scattered plaque within the vasculature. Fat-containing left inguinal hernia. Hepatobiliary: Subcentimeter low-density lesion within the right lobe the liver which is too small to characterize. Pancreas: No peripancreatic edema. Spleen: Spleen unremarkable. Renal/Bladder: No hydronephrosis. Urinary bladder has minimal urine within it at time of exam and is thick wall. Enlarged prostate. Calcification within the right side of the urinary bladder measuring 7 mm which could be secondary to a stone. Gastrointestinal: Portion of the sigmoid colon is displaced into the left upper quadrant the abdomen appearance. There is dilatation of the sigmoid colon at this site measuring up to about 6 cm. There i s a transition point to smaller size of distal colon within the left upper quadrant with an adjacent transition seen within the bowel proximal and abutting this site. The rest of the colon is distended with stool. There is some tortuosity of the mesentery within the region as well. Suspected mild infla mmatory changes adjacent to a small portion of the colon left lower quadrant abutting the inguinal ca nal. Degenerative changes the spine with multilevel central canal and neural foraminal stenosis. Degenerat tang changes of hips. IMPRESSION: * Portion of the sigmoid colon is distended and displaced into the left upper quadrant of the abdom en with a tortuous appearance. There is a couple of transition points adjacent to one another involvi ng the sigmoid colon both proximal and distal to this site within the left upper quadrant of the abdo men. Differential considerations for this finding would include partial sigmoid volvulus with another possible cause including internal hernia with partial colonic obstruction. 2 transition points in th e left upper quadrant. More proximal to this site there is distention of the colon with stool and gas . This is predominantly a colonic process with the majority of the small bowel bowel loops appearing nondilated at this time. The acuity of these findings are unknown since the patient has had dilated l oops of bowel on prior plain films. * There is also small amount of inflammatory changes adjacent to a portion of the colon in the left lower quadrant and causes such as a superimposed mild diverticulitis or epiploic appendicitis is also possible. * Wall thickening of the urinary bladder as well as a stone within the urinary bladder. This wall th ickening could be secondary to causes such as chronic partial bladder outlet obstruction given patien t's enlarged prostate but other causes such as a bladder wall mass or cystitis not excluded given thi s thickening.. Electronically signed by: Dontae Yadav MD (06/05/2021 11:29 AM) [id number]
[2021-06-05] MEDS ORDERED: IV NORMAL SALINE 1,000ML 1,000 ML IV ONE (15:00)
[2021-06-05 20:15] VITALS: BP 136/89
== END 2021-06-05 20:40 | disposition short-term general hospital (02) ==
LOC: ER 08:35
DX: K56.2 Volvulus (principal); I10 Essential (primary) hypertension; Z88.0 Allergy status to penicillin; Z88.1 Allergy status to other antibiotic agents; Z88.6 Allergy status to analgesic agent; Z20.822 Contact with and (suspected) exposure to COVID-19
CPT/HCPCS: 36415; 74177; 80053; 81001; 83605; 83690; 84484; 85025; 87426; 93005; 96360; 96361; 99285; J7030; Q9967; U0003

== ENCOUNTER 2021-06-12 14:38 | Emergency (ER) | payer MEDICARE, OTHER ==
[~2021-06-12] VITALS: Ht 180.3 cm; Wt 90.9 kg
[2021-06-12 14:42] VITALS: BP 105/90
--- NOTE | 2021-06-12 14:47 | PHYS DOC ---
Past History Past Medical History: Anxiety, Hypertension Additional Past Medical Histor: CATARCTS, HERNIA Past Surgical History: Other Additional Past Surgical Histo: hernia repair Alcohol Use: Rarely Drug Use: None General Adult EDM: Chief Complaint: URINARY RETENTION HPI: HPI: 75-year-old male presents with urinary retention. The patient had a colonoscopy yesterday at another facility and he has had difficulty urinating since. Overall he still has 8 hours he is with a feeling of urgency, but is unable to get any urine out. He states that his abdomen is now quite uncomfortable. He does not believe he has had a fever. He has no other complaints this time. Review of Systems: Review of Systems: Constitutional: Denies fever or chills Eyes: Denies change in visual acuity HENT: Denies nasal congestion or sore throat Respiratory: Denies cough or shortness of breath Cardiovascular: Denies chest pain or edema GI: Denies abdominal pain, nausea, vomiting, bloody stools or diarrhea : Urinary retention Musculoskeletal: Denies back pain or joint pain Integument: Denies rash Neurologic: Denies headache, focal weakness or sensory changes Endocrine: Denies polyuria or polydipsia Lymphatic: Denies swollen glands Psychiatric: Denies depression or anxiety Allergies: Allergies: Allergies Coded Allergies Type Severity Reaction Last Updated Verified Penicillins Allergy Unknown 06/05/21 Yes Sulfa (Sulfonamide Antibiotics) Allergy Unknown 06/29/18 Yes ciprofloxacin Allergy Unknown 06/29/18 Yes doxycycline Allergy Unknown 06/29/18 Yes ibuprofen Allergy Unknown 06/29/18 Yes sulfamethoxazole Allergy Unknown 06/29/18 Yes tamsulosin Allergy Unknown 06/29/18 Yes tolterodine Allergy Unknown 06/29/18 Yes trazodone Allergy Unknown 06/29/18 Yes trimethoprim Allergy Unknown 06/29/18 Yes Physical Exam: PE: Constitutional: Well developed, well nourished, no acute distress, non-toxic appearance. [] HENT: Normocephalic, atraumatic, bilateral external ears normal, oropharynx moist, no oral exudates, nose normal. [] Eyes: PERRLA, EOMI, conjunctiva normal, no discharge. [] Neck: Normal range of motion, no tenderness, supple, no stridor. [] Cardiovascular: Heart rate regular rhythm, no murmur [] Lungs & Thorax: Bilateral breath sounds clear to auscultation [] Abdomen: Bowel sounds normal, soft, no tenderness, no masses, no pulsatile masses. [] Skin: Warm, dry, no erythema, no rash. [] Back: No tenderness, no CVA tenderness. [] Extremities: No tenderness, no cyanosis, no clubbing, ROM intact, no edema. [] Neurologic: Alert and oriented X 3, normal motor function, normal sensory function, no focal deficits noted. [] Psychologic: Affect normal, judgement normal, mood normal. [] EKG: EKG: [] Radiology/Procedures: Radiology/Procedures: [] Heart Score: C/O Chest Pain: N/A Risk Factors: Risk Factors: DM, Current or recent (<one month) smoker, HTN, HLP, family histo ry of CAD, obesity. Risk Scores: Score 0 - 3: 2.5% MACE over next 6 weeks - Discharge Home Score 4 - 6: 20.3% MACE over next 6 weeks - Admit for Clinical Observation Score 7 - 10: 72.7% MACE over next 6 weeks - Early Invasive Strategies Course & Med Decision Making: Course & Med Decision Making Pertinent Labs and Imaging studies reviewed. (See chart for details) We have placed a Brown catheter in the patient due to his discomfort and stated lack of urination. We only got 100 out. We sent a sample to the lab and it was negative for infection but positive for yeast. I will treat the patient with fluconazole 100 twice daily for 14 days. I have advised the patient follow-up with urology. We have removed the catheter at this time. [] Dragon Disclaimer: Dragon Disclaimer: This electronic medical record was generated, in whole or in part, using a voice recognition dictation system. Departure Departure: Impression: Primary Impression: Yeast UTI Disposition: HOME / SELF CARE / HOMELESS Condition: STABLE Referrals: CESAR [place] MD (PCP) Patient Instructions: Urinary Tract Infection, Roce-he-Pujp Scripts Fluconazole (FLUCONAZOLE) 200 Mg Tablet 1 TAB PO DAILY for yeast UTI for 14 Days, #14 TAB Prov: JÚNIOR ALVARADO DO 06/12/21 JÚNIOR ALVARADO DO Jun 12, 2021 14:47
[2021-06-12 15:28] LABS: BILIRUBIN,URINE NEG (NEG); CLARITY,URINE CLEAR; COLOR,URINE YELLOW; GLUCOSE,URINE NEG (NEG)
[2021-06-12 15:29] LABS: BACTERIA,URINE FEW /HPF (0-FEW); NITRITE,URINE NEG (NEG); SQUAMOUS EPITHELIAL CELL,UR OCC /LPF; UROBILINOGEN,URINE 0.2 mg/dL (0.2 mg/dL); WBC,URINE OCC /HPF (0-4); YEAST,URINE PRESENT /HPF
[2021-06-12] MEDS ORDERED: FLUCONAZOLE 100 MG TABLET. PO ONE ×2 (16:00→16:15)
[2021-06-12] MEDS ORDERED: FLUC200T4 PO (16:11)
[2021-06-20] MEDS ORDERED: CLIN-95 PO (13:17)
[2021-06-20] MEDS ORDERED: APIX5TAB5 PO (13:17)
[2021-06-24] MEDS ORDERED: BRIN15DR4 OU (01:43)
[2021-06-24] MEDS ORDERED: FURO-69 PO (01:48)
[2021-06-24] MEDS ORDERED: FLUC200T4 PO (01:48)
[2021-06-24] MEDS ORDERED: ZIPR40CA2 PO (01:48)
[2021-06-24] MEDS ORDERED: POTA-112 PO (01:48)
== END 2021-06-12 16:40 | disposition home or self-care (01) ==
LOC: ER 14:59
DX: B37.49 Other urogenital candidiasis (principal); I10 Essential (primary) hypertension; F41.9 Anxiety disorder, unspecified; Z88.2 Allergy status to sulfonamides; Z88.1 Allergy status to other antibiotic agents; Z88.6 Allergy status to analgesic agent; Z88.8 Allergy status to other drugs, medicaments and biological substances
CPT/HCPCS: 81001; 99283-25

== ENCOUNTER 2021-06-17 14:21 | Inpatient (IN) | payer MEDICARE, OTHER ==
[~2021-06-17] VITALS: Ht 180.3 cm; Wt 98.5 kg
[~2021-06-17 14:21] MED LIST changes: +FLUC200T4 PO
--- NOTE | 2021-06-17 15:16 | PHYS DOC ---
Past History Past Medical History: Anxiety, Hypertension Additional Past Medical Histor: CATARCTS, HERNIA Past Surgical History: Other Additional Past Surgical Histo: hernia repair, lower rigth GI Alcohol Use: None Drug Use: None General Adult EDM: Chief Complaint: LOWER EXTREMITY SWELLING HPI: HPI: Patient is a 75-year-old male coming in for right lower extremity pain and swelling. Patient was seen at this facility and transferred to [facility] for a sigmoid volvulus. Patient underwent laparoscopic surgery and colonoscopy. Patient states that since then he has noticed increased redness and swelling of his right lower extremity. Denies any shortness of breath or chest pain. No still complaints. Does not take any blood thinners. Denies any trauma to the leg. Review of Systems: Review of Systems: All other systems within normal limits except for as noted in the HPI Allergies: Allergies: Allergies Coded Allergies Type Severity Reaction Last Updated Verified Penicillins Allergy Unknown 06/05/21 Yes Sulfa (Sulfonamide Antibiotics) Allergy Unknown 06/29/18 Yes ciprofloxacin Allergy Unknown 06/29/18 Yes doxycycline Allergy Unknown 06/29/18 Yes ibuprofen Allergy Unknown 06/29/18 Yes sulfamethoxazole Allergy Unknown 06/29/18 Yes tamsulosin Allergy Unknown 06/29/18 Yes tolterodine Allergy Unknown 06/29/18 Yes trazodone Allergy Unknown 06/29/18 Yes trimethoprim Allergy Unknown 06/29/18 Yes Physical Exam: PE: Constitutional: Well developed, well nourished, no acute distress, non-toxic appearance. [] HENT: Normocephalic, atraumatic, bilateral external ears normal, nose normal. [] Eyes: PERRLA, conjunctiva normal, no discharge. [] Neck: No rigidity, supple, no stridor. [] Cardiovascular: Regular rate and rhythm, brisk cap refill [] Lungs & Thorax: Non labored symmetric respirations, no tachypnea or respiratory distress [] Abdomen: Soft, nondistended, left-sided tenderness palpation. Skin: Warm, dry, no erythema, no rash. Well-healing abdominal surgical incisions without signs of infection [] Back: Unremarkable Extremities: No deformities, range of motion grossly intact, right lower extremity edema with calf tenderness, diffuse erythema. Neurologic: Alert and oriented X 3, no focal deficits noted. [] Psychologic: Affect normal, judgement normal, mood normal. [] Current Patient Data: Vital Signs: Vital Signs Date Time Temp Pulse Resp B/P (MAP) Pulse Ox O2 Delivery O2 Flow Rate FiO2 06/17/21 14:41 98.4 62 16 154/67 (96) 98 Room Air EKG: EKG: [] Radiology/Procedures: Radiology/Procedures: [address] [address] IMAGING REPORT Signed PATIENT: HUBERT GARAY BACCOUNT: [id number] : 1945 LOCATION: ER AGE: 75 SEX: M EXAM STATUS: REG ER ORD. PHYSICIAN: SRAVAN MARTINEZ MD REASON: ileus OMNI 300 75 ML PROCEDURE: CT ABD PELV W/ IV CONTRST ONLY Exam: CT of abdomen and pelvis with contrast INDICATION: Ileus TECHNIQUE: Sequential axial images through the abdomen and pelvis obtained following the administration of 75 mL of Omni 300 IV contrast. Sagittal and coronal reformatted images were reconstructed from the axial data and reviewed. Exposure: One or more of the following in the visualized dose reduction [facility] ues were utilized for this examination: 1. Automated exposure control 2. Adjustment of the MA and/or KV according to patient size 3. Use of iterative of reconstructive technique Comparisons: 06/05/2021 FINDINGS: Heart size is normal. No pericardial effusion. Strandy opacities dependent portion lungs likely representing atelectasis. No pleural effusion. Liver, spleen, pancreas, and adrenals are unremarkable. Gallbladder is decompressed not well evaluated. Kidneys a straight symmetric enhancement. No perinephric inflammation or hydronephrosis. No renal calculi. There is a 6 mm calculus the bladder adjacent to the left ureterovesicular junction. Bladder is distended. Small amount of air noted within the bladder. Prostate is enlarged and somewhat heterogenous in appearance. Postoperative changes noted at the sigmoid colon. Large amount stool is noted in the colon. Small bowel is unremarkable. No free intra-abdominal air or fluid. No obstruction. Abdominal aorta has a normal course and caliber. Abdominal vasculature is patent. No enlarged intra-abdominal lymph nodes are identified. No suspicious osseous lesions or acute fractures. IMPRESSION: 1. Postoperative changes at the sigmoid colon. Large amount of stool is noted in the colon, correlate for constipation. 2. A 6 mm calculus at or adjacent to the left ureterovesicular junction. No hydronephrosis. Correlate with symptomatology. Electronically signed by: Lucinda Quinonez MD (06/17/2021 5:23 PM) [facility] DICTATED AND SIGNED BY: LUCINDA QUINONEZ MD DATE: 06/17/21 1715 CC: SRAVAN MARTINEZ MD; CESAR NJ MD ~MTH0 0 [][address] [address] IMAGING REPORT Signed PATIENT: HUBERT GARAY BACCOUNT: [id number] : 1945 LOCATION: ER AGE: 75 SEX: M EXAM STATUS: REG ER ORD. PHYSICIAN: SRAVAN MARTINEZ MD REASON: swelling PROCEDURE: VENOUS LOWER EXTREMITY RIGHT US DPLX VENOUS EXTREMITY LOWER RT History: Reason: swelling / Spl. Instructions: / History: Comparison: CT June 05, 2021 Technique: Multiple longitudinal and transverse high resolution real-time images of the venous system of right lower extremity were obtained with color and Doppler sampling. Findings: Deep vein thrombosis within the right peroneal vein in the mid calf. Patent right common femoral, deep femoral, superficial femoral and popliteal veins. Enlarged right inguinal lymph node measures 3.4 x 2.4 x 0.9 cm. Impression: 1. Deep vein thrombosis within the right peroneal vein mid calf. 2. Enlarged right inguinal lymph nodes, potentially reactive. Electronically signed by: Moises Michael DO (06/17/2021 3:54 PM) [id number] DICTATED AND SIGNED BY: MOISES MICHAEL DO DATE: 06/17/21 1551 CC: SRAVAN MARTINEZ MD; CESAR NJ MD ~MTH0 0 Heart Score: C/O Chest Pain: No Risk Factors: Risk Factors: DM, Current or recent (<one month) smoker, HTN, HLP, family history of CAD, obesity. Risk Scores: Score 0 - 3: 2.5% MACE over next 6 weeks - Discharge Home Score 4 - 6: 20.3% MACE over next 6 weeks - Admit for Clinical Observation Score 7 - 10: 72.7% MACE over next 6 weeks - Early Invasive Strategies Course & Med Decision Making: Course & Med Decision Making Patient with acute appearing DVT and 1 week postop. Discussed with hospitalist and patient rearding admission, patient agrees to admission due to concerns for starting blood thinners in the setting of recent surgery and difficulty getting around. Patient also has reactive inguinal lymph nodes and erythema, will also cover with antibiotics in case of superimposed cellulitis. Dragon Disclaimer: Dragon Disclaimer: This electronic medical record was generated, in whole or in part, using a voice recognition dictation system. Departure Departure: Impression: Primary Impression: Cellulitis Additional Impression: Right leg DVT Disposition: ADMITTED INPATIENT Admitting Physician: Kathie Nelson Condition: STABLE Referrals: CESAR NJ MD (PCP) SRAVAN MARTINEZ MD Jun 17, 2021 15:16
--- NOTE | 2021-06-17 15:56 | RAD ---
US DPLX VENOUS EXTREMITY LOWER RT History: Reason: swelling / Spl. Instructions: / History: Comparison: CT June 05, 2021 Technique: Multiple longitudinal and transverse high resolution real-time images of the venous system of right lower extremity were obtained with color and Doppler sampling. Findings: Deep vein thrombosis within the right peroneal vein in the mid calf. Patent right common femoral, paz p femoral, superficial femoral and popliteal veins. Enlarged right inguinal lymph node measures 3.4 x 2.4 x 0.9 cm. Impression: 1. Deep vein thrombosis within the right peroneal vein mid calf. 2. Enlarged right inguinal lymph nodes, potentially reactive. Electronically signed by: Moises Charles DO (06/17/2021 3:54 PM) [id number]
--- NOTE | 2021-06-17 16:03 | RAD ---
2 view abdominal series Clinical indications: Postoperative left lower quadrant abdominal pain. FINDINGS: Dilated loops of bowel are seen centrally with no significant air-fluid levels. No free int raperitoneal air is seen. Findings are consistent with a mild postoperative ileus. Mild primary degen erative osteoarthritis of both hip joints is seen. IMPRESSION: Mild postoperative functional ileus. Electronically signed by: Randy Georges MD (06/17/2021 4:00 PM) [id number]
[2021-06-17 16:11] LABS: BASO # 0.1 x10^3/uL (0.0-0.2); BASO % 1 % (0-3); EOS # 0.4 x10^3/uL (0.0-0.7); EOS % 5 % (0-3); HEMATOCRIT 37.2 % (39.0-53.0); HEMOGLOBIN 12.2 g/dL (13.0-17.5); LYMPH # 1.7 x10^3/uL (1.0-4.8); LYMPH % 23 % (24-48); MEAN CORPUSCULAR HEMOGLOBIN 30 pg (25-35); MEAN CORPUSCULAR HGB CONC 33 g/dL (31-37); MEAN CORPUSCULAR VOLUME 92 fL (79-100); MONO # 1.1 x10^3/uL (0.0-1.1); MONO % 14 % (0-9); NEUT # 4.3 x10^3uL (1.8-7.7); NEUT % 57 % (31-73); PLATELET COUNT 271 x10^3/uL (140-400); RED BLOOD COUNT 4.02 x10^6/uL (4.30-5.70); RED CELL DISTRIBUTION WIDTH 13.1 % (11.5-14.5); WHITE BLOOD COUNT 7.6 x10^3/uL (4.0-11.0)
[2021-06-17 16:20] LABS: CALCIUM 8.6 mg/dL (8.5-10.1); CREATININE 0.9 mg/dL (0.7-1.3); GFR 99.8; POTASSIUM 3.5 mmol/L (3.5-5.1)
[2021-06-17 16:26] LABS: ALBUMIN 2.8 g/dL (3.4-5.0); ALBUMIN/GLOBULIN RATIO 0.7 (1.0-1.7); TOTAL BILIRUBIN 1.2 mg/dL (0.2-1.0); TOTAL PROTEIN 6.6 g/dL (6.4-8.2)
[2021-06-17] MEDS ORDERED: IOHEXOL 300 MG/ML 75 ML VIAL. IV ONE (16:45)
--- NOTE | 2021-06-17 17:26 | RAD ---
Exam: CT of abdomen and pelvis with contrast INDICATION: Ileus TECHNIQUE: Sequential axial images through the abdomen and pelvis obtained following the administrati on of 75 mL of Omni 300 IV contrast. Sagittal and coronal reformatted images were reconstructed from the axial data and reviewed. Exposure: One or more of the following in the visualized dose reduction techniques were utilized for this examination: 1. Automated exposure control 2. Adjustment of the MA and/or KV according to patient size 3. Use of iterative of reconstructive technique Comparisons: 06/05/2021 FINDINGS: Heart size is normal. No pericardial effusion. Strandy opacities dependent portion lungs likely repre senting atelectasis. No pleural effusion. Liver, spleen, pancreas, and adrenals are unremarkable. Gallbladder is decompressed not well evaluate d. Kidneys a straight symmetric enhancement. No perinephric inflammation or hydronephrosis. No renal genie culi. There is a 6 mm calculus the bladder adjacent to the left ureterovesicular junction. Bladder is distended. Small amount of air noted within the bladder. Prostate is enlarged and somewhat heterogenous in appearance. Postoperative changes noted at the sigmoid colon. Large amount stool is noted in the colon. Small bow el is unremarkable. No free intra-abdominal air or fluid. No obstruction. Abdominal aorta has a normal course and caliber. Abdominal vasculature is patent. No enlarged intra-abdominal lymph nodes are identified. No suspicious osseous lesions or acute fractures. IMPRESSION: 1. Postoperative changes at the sigmoid colon. Large amount of stool is noted in the colon, correlat e for constipation. 2. A 6 mm calculus at or adjacent to the left ureterovesicular junction. No hydronephrosis. Correlat e with symptomatology. Electronically signed by: Lucinda Stewart MD (06/17/2021 5:23 PM) [facility]
[2021-06-17] MEDS ORDERED: CLINDAMYCIN HCL 150 MG CAPSULE PO ONE (18:00)
[2021-06-17] MEDS ORDERED: ONDANSETRON PF 4 MG/2 ML VIAL. IVP PRN (18:00)
[2021-06-17] MEDS ORDERED: ACETAMINOPHEN 325 MG TABLET PO PRN (18:00)
[2021-06-17] MEDS ORDERED: ENOXAPARIN ** NOTE DOSE ** SYRINGE SQ ONE (18:00)
[2021-06-17 20:49] LABS: CLARITY,URINE HAZY; COLOR,URINE YELLOW
[2021-06-17 20:50] LABS: BILIRUBIN,URINE NEG (NEG); GLUCOSE,URINE NEG (NEG); NITRITE,URINE NEG (NEG); UROBILINOGEN,URINE 0.2 mg/dL (0.2 mg/dL)
[2021-06-17 20:52] LABS: AMORPHOUS SEDIMENT,UR PRESENT /HPF; BACTERIA,URINE 0 /HPF (0-FEW); RBC,URINE OCC /HPF (0-2); SQUAMOUS EPITHELIAL CELL,UR OCC /LPF; WBC,URINE 0 /HPF (0-4)
[2021-06-17 22:08] VITALS: BP 127/72
[2021-06-18] MEDS ORDERED: LINA145C PO (00:16)
[2021-06-18] MEDS ORDERED: LATA2.5D2 OU (00:16)
[2021-06-18] MEDS ORDERED: GABA-586 PO (00:16)
[2021-06-18] MEDS ORDERED: ZOLP10TA PO (00:16)
--- NOTE | 2021-06-18 00:35 | NUR ---
The patient, HUBERT GARAY, 75 y/o, M admitted by WILLIAM SEGURA MD, was given written information regarding hospital policies, unit procedures and contact persons. Valuables were checked and vital signs obtained. PT had been in the hospital at the end of May for abdominal pain with noted chronic constipation. PT had a colonoscopy at that time noting torsion. Surgery to relieve torsion performed. PT came into the hospital for a painful RLE. PT noted to have DVT. PT admitted for therapy. Reviewed with PT his PMH, PSH, SH, FH and medications. Medication list obtained from discharge summary from surgical stay. PT oriented to unit. PT states no pain currently.
[2021-06-18 06:25] VITALS: BP 135/82
[2021-06-18 06:58] LABS: CALCIUM 8.7 mg/dL (8.5-10.1); CREATININE 0.8 mg/dL (0.7-1.3); GFR 114.3; POTASSIUM 3.6 mmol/L (3.5-5.1)
[2021-06-18 07:03] LABS: BASO # 0.1 x10^3/uL (0.0-0.2); BASO % 1 % (0-3); EOS # 0.3 x10^3/uL (0.0-0.7); EOS % 5 % (0-3); HEMATOCRIT 38.6 % (39.0-53.0); HEMOGLOBIN 12.9 g/dL (13.0-17.5); LYMPH # 1.5 x10^3/uL (1.0-4.8); LYMPH % 20 % (24-48); MEAN CORPUSCULAR HEMOGLOBIN 31 pg (25-35); MEAN CORPUSCULAR HGB CONC 33 g/dL (31-37); MEAN CORPUSCULAR VOLUME 93 fL (79-100); MONO % 14 % (0-9); NEUT # 4.6 x10^3uL (1.8-7.7); NEUT % 61 % (31-73); PLATELET COUNT 296 x10^3/uL (140-400); RED BLOOD COUNT 4.15 x10^6/uL (4.30-5.70); RED CELL DISTRIBUTION WIDTH 13.5 % (11.5-14.5); WHITE BLOOD COUNT 7.6 x10^3/uL (4.0-11.0)
[2021-06-18 10:34] VITALS: BP 159/52
[2021-06-18] MEDS ORDERED: ENOXAPARIN ** NOTE DOSE ** SYRINGE SQ SCH (14:15)
[2021-06-18] MEDS ORDERED: ALBUTEROL SULFATE 2.5 MG/3 ML NEBU. IH PRN (14:30)
--- NOTE | 2021-06-18 14:40 | HP ---
DATE OF SERVICE: 06/18/2021 ADMIT DATE: 06/17/2021 HISTORY OF PRESENT ILLNESS: The patient is a 75-year-old -[place] male patient who presented to the Emergency Room with a complaint of right lower extremity swelling and pain. The patient was seen at this facility and transferred to [facility] for sigmoid volvulus on 06/05/2021. He apparently underwent sigmoidoscopy and decompression of the sigmoid volvulus and subsequently underwent a partial colectomy and end-to-end anastomosis, if my understanding is right, and was discharged home. He apparently noticed pain in his right foot that he initially thought was because of gout; however, he denied any chest pain, shortness of breath, cough or hemoptysis. He denied any fall or trauma to his right leg. He was not taking any blood thinners and was basically extensively investigated in the emergency room, where he had had lab work and imaging studies. His prothrombin time and INR were normal. His blood count was also unremarkable and his chemistry was unrevealing. He has had a right lower extremity venous Doppler ultrasound, which showed that the patient has deep vein thrombosis within the right peroneal vein, mid calf, enlarged right inguinal lymph nodes, potentially reactive. He also had a 2-view abdominal series, which showed dilated loops of bowel are seen centrally, with no significant air fluid levels. No free intraperitoneal air is seen. Findings are consistent with mild postoperative ileus. Mild primary degenerative osteoarthritis of both hip joints is seen. He did have also a CT scan of the abdomen and pelvis, which showed that the patient has postoperative changes of the sigmoid colon, large amount of stool is noted in the colon, correlate for constipation, has a 6 mm calculus at or adjacent to the left ureterovesicular junction. No hydronephrosis. The patient was admitted with diagnosis of right lower extremity deep vein thrombosis as well as cellulitis. He was started on Lovenox as well as clindamycin and was admitted for further evaluation and treatment. PAST MEDICAL HISTORY: Significant for hypertension, hyperlipidemia, benign prostatic hypertrophy, history of nephrolithiasis, hypothyroidism, bronchial asthma, morbid obesity and obstructive sleep apnea on CPAP, generalized osteoarthritis. PAST SURGICAL HISTORY: Significant for right inguinal hernia repair, colonoscopy and with decompression of sigmoid volvulus and partial colectomy. ALLERGIES: HE IS ALLERGIC TO PENICILLIN, SULFA DRUGS, CIPROFLOXACIN, DOXYCYCLINE, IBUPROFEN, SULFAMETHOXAZOLE, TAMSULOSIN, TOLTERODINE, TRAZODONE, AND TRIMETHOPRIM. FAMILY HISTORY: He has 2 brothers who are still alive and healthy. Two sisters, both , one because of DVT and PE and one younger sister because of drug overdose. One brother of alcoholism. Father at age of 95 because of bladder cancer. Mother at age of 95. SOCIAL HISTORY: He is single, never , has no children. He does not smoke, drink alcohol or used recreational drugs. He used to work for [employer] and also worked at [employer] in the kitchen. REVIEW OF SYSTEMS: As per history of present illness. PHYSICAL EXAMINATION: GENERAL: On arrival to the Emergency Room, he looked well and was clearly in no apparent respiratory distress. No pallor, jaundice, cyanosis or thyromegaly. No jugular venous distention. No limb edema. VITAL SIGNS: Her heart rate was 62, blood pressure was 154/67, temperature was 98.4, respiratory rate was 16 and oxygen saturation was 98% on room air. HEAD, EYES, EARS, NOSE, AND THROAT: Normocephalic, atraumatic. NECK: Supple. HEART: Showed normal first and second heart sounds. No gallop, rub or murmur. CHEST: Clear to auscultation. No crepitation or rhonchi. ABDOMEN: Distended, soft, nontender. There is no guarding or rigidity. No organomegaly. All hernial orifices intact. Bowel sounds normal. NEUROLOGIC: He is awake, alert, responding appropriately. Cranial nerves intact. He moves extremities without difficulty. He ambulates without assistance or assistive devices. EXTREMITIES: Examination of both lower extremities show there is no clubbing or cyanosis, but has marked swelling of the right lower extremity with cellulitis and also right lower extremity DVT. LABORATORY DATA: His lab was done on admission showed a white cell count of 7600, hemoglobin 12, hematocrit 37, MCV 92 and platelet count 271,000. His chemistry showed a serum sodium 139, potassium 3.5, chloride 103, bicarbonate 32, anion gap of 4, BUN 8, creatinine 0.9. Estimated GFR was 99 mL per minute. His glucose was 89, calcium was 8.6. Total bilirubin is 1.2, AST, ALT, alkaline phosphatase were normal. Total protein 6.6, albumin 2.8. His prothrombin time and INR were normal. Urinalysis was essentially unremarkable. ASSESSMENT AND PLAN: The patient was basically admitted with right lower extremity deep vein thrombosis as well as right lower extremity cellulitis. He does have also history of gout, so I will continue with Lovenox. Continue with clindamycin. I will check his labs including serum uric acid and decide on treatment accordingly. CRAIG DR: Annia TID: [id number]
[2021-06-18 14:48] VITALS: BP 130/68
[2021-06-18] MEDS: TERAZOSIN 5 MG CAPSULE. PO SCH (15:10)
[2021-06-18] MEDS: FINASTERIDE 5 MG TABLET. PO SCH (15:10)
[2021-06-18] MEDS: CLINDAMYCIN 600MG PREMIX 50 ML IV SCH ×2 (15:11→21:10)
[2021-06-18] MEDS: LUBIPROSTONE 24 MCG CAPSULE PO SCH (16:25)
--- NOTE | 2021-06-18 16:51 | NUR ---
Nursing note PT in bed, medications administered as ordered, PT verbalized no other needs, call light reach, bed in low position.
[2021-06-18 19:41] VITALS: BP 106/55
[2021-06-18] MEDS: GABAPENTIN 300 MG CAPSULE. PO SCH (21:09)
[2021-06-18] MEDS: LATANOPROST 0.005% OPHTH SOLUTION 2.5ML BOTTLE. OU SCH (21:09)
[2021-06-18] MEDS: OXYBUTYNIN CHLORIDE 5 MG TABLET PO SCH (21:09)
[2021-06-18] MEDS: ZOLPIDEM 5 MG TABLET. PO PRN (21:09)
[2021-06-18] MEDS: SIMVASTATIN 40 MG TABLET. PO SCH (21:09)
[2021-06-18] MEDS: rOPINIRole 0.5 MG TABLET. PO SCH (21:09)
[2021-06-18 23:20] VITALS: BP 98/50
--- NOTE | 2021-06-19 00:19 | PN ---
DATE: 06/18/2021 SUBJECTIVE: The patient was admitted yesterday with deep vein thrombosis, right lower extremity as well as right lower extremity cellulitis. When I saw him today, he continued to have pain in his right lower extremity. Denied any chest pain, shortness of breath, cough, phlegm or hemoptysis. He was started on Lovenox and clindamycin. PHYSICAL EXAMINATION: GENERAL: When I examined him today, he looked well and was clearly in no apparent respiratory distress. No pallor, jaundice, cyanosis or thyromegaly. No jugular venous distention. No limb edema. VITAL SIGNS: His heart rate was 58, blood pressure was 159/62, temperature was 98.5, respiratory rate 20, and oxygen saturation was 99%. HEAD, EYES, EARS, NOSE, AND THROAT: Normocephalic, atraumatic. NECK: Supple. HEART: Showed normal first and second heart sounds, no gallop or murmur. CHEST: Clear to auscultation, no crepitation or rhonchi. ABDOMEN: Distended, soft, nontender. NEUROLOGIC: He was grossly intact. EXTREMITIES: Showed his right lower extremity is swollen, but there is no clubbing or cyanosis. LABORATORY WORK: Again showed his white cell count 7600, hemoglobin 13, hematocrit 39, MCV 93 and platelet count 296,000. Serum sodium 141, potassium 3.6, chloride 104, bicarbonate 30, anion gap of 7, BUN 6, creatinine 0.8. Estimated GFR was 114 mL per minute. His glucose was 87, calcium was 8.7. ASSESSMENT: 1. Right lower extremity cellulitis. 2. Right deep vein thrombosis. PLAN: To continue with Lovenox 100 mg subcutaneous twice a day. Continue with clindamycin 600 mg IV 3 times a day. Continue with all his other medication. I will repeat all his labs again tomorrow and probably eventually switch him to oral Eliquis as well as oral clindamycin. He also has history of gout, so I will check his uric acid tomorrow. TRACIE/ENID DR: Annia TID: [id number]
[2021-06-19 06:06] VITALS: BP 100/55
[2021-06-19 06:09] LABS: CALCIUM 8.4 mg/dL (8.5-10.1); CREATININE 0.8 mg/dL (0.7-1.3); GFR 114.3; POTASSIUM 3.8 mmol/L (3.5-5.1); URIC ACID 4.2 mg/dL (3.5-7.2)
[2021-06-19] MEDS: CLINDAMYCIN 600MG PREMIX 50 ML IV SCH ×3 (06:22→22:00)
[2021-06-19] MEDS ORDERED: ENOXAPARIN ** NOTE DOSE ** SYRINGE SQ SCH (08:00)
[2021-06-19] MEDS: LUBIPROSTONE 24 MCG CAPSULE PO SCH ×2 (08:02→17:09)
[2021-06-19] MEDS: OXYBUTYNIN CHLORIDE 5 MG TABLET PO SCH ×2 (08:03→20:41)
[2021-06-19] MEDS: FINASTERIDE 5 MG TABLET. PO SCH (08:03)
[2021-06-19] MEDS: PANTOPRAZOLE 40 MG TABLET. PO SCH (08:03)
[2021-06-19] MEDS: GABAPENTIN 300 MG CAPSULE. PO SCH ×3 (08:03→20:41)
[2021-06-19] MEDS: TERAZOSIN 5 MG CAPSULE. PO SCH (08:03)
[2021-06-19] MEDS: LEVOTHYROXINE 125 MCG TABLET PO SCH ×2 (08:07→08:15)
[2021-06-19] MEDS ORDERED: NON FORMULARY ITEM (Fluticasone/Vilanterol (Breo Ellipta 100-25 Mcg Inh) 1 PUFF) IH SCH (09:00)
[2021-06-19] MEDS: LACTOBACILLUS RHAMNOSUS GG 1 CAPSULE. PO SCH ×2 (10:50→20:41)
[2021-06-19 10:57] VITALS: BP 107/45
[2021-06-19 14:30] VITALS: BP 113/72
[2021-06-19] MEDS ORDERED: DOCUSATE SODIUM 100 MG CAPSULE PO PRN (17:00)
[2021-06-19] MEDS ORDERED: POLYETHYLENE GLYCOL 3350 17 GM PACKET. PO PRN (17:00)
[2021-06-19 18:41] VITALS: BP 108/53
[2021-06-19] MEDS: ZOLPIDEM 5 MG TABLET. PO PRN (20:41)
[2021-06-19] MEDS: rOPINIRole 0.5 MG TABLET. PO SCH (20:41)
[2021-06-19] MEDS: LATANOPROST 0.005% OPHTH SOLUTION 2.5ML BOTTLE. OU SCH (20:41)
[2021-06-19] MEDS: APIXABAN 5 MG TABLET. PO SCH (20:42)
[2021-06-19] MEDS: SIMVASTATIN 40 MG TABLET. PO SCH (20:46)
[2021-06-19 22:53] VITALS: BP 91/50
--- NOTE | 2021-06-19 23:51 | PN ---
DATE: 06/19/2021 SUBJECTIVE: The patient is sitting at the edge of the bed, continued to complain of pain in his right foot and swelling; however, he denied any chest pain, shortness of breath, cough, phlegm or hemoptysis. PHYSICAL EXAMINATION: GENERAL: When I examined him this morning, he looked well, somewhat pale, but no jaundice, cyanosis or thyromegaly. No jugular venous distention. He has obviously marked swelling of the left leg and foot. VITAL SIGNS: His heart rate was 57, blood pressure 100/55, his temperature was 98.8, respiratory rate 20 and oxygen saturation was 95%. HEAD, EYES, EARS, NOSE, AND THROAT: Normocephalic, atraumatic. NECK: Supple. HEART: Normal first and second heart sounds. No gallop, rub or murmur. CHEST: Showed central trachea, equal bilateral chest expansion, air entry, vesicular breath sounds. No crepitation or rhonchi. ABDOMEN: Distended, soft, nontender. NEUROLOGIC: He is awake, alert, responding appropriately. Cranial nerves intact. He moves extremities without difficulty. Does have pain in his right foot and obviously has difficulty walking and examination of lower extremities showed there is no clubbing or cyanosis; however, the right lower extremity is markedly swollen, tender to touch and hot to touch. His intake over the last 24 hours and output incompletely recorded. LABORATORY DATA: As of yesterday, his white cell count is 7600, hemoglobin was 13, hematocrit 39, MCV 93 and platelet count 296,000. His serum sodium this morning was down to 139, potassium 3.8, chloride 104, bicarbonate 30, anion gap of 5, BUN 7, creatinine 0.8. Estimated GFR was 114 mL per minute. His glucose was 94, calcium was 4.2 and uric acid was only 4.2. Her prothrombin time and INR are normal. His urinalysis essentially unremarkable. ASSESSMENT: 1. Right lower extremity cellulitis, for which he is on IV clindamycin. 2. Right lower extremity deep vein thrombosis, for which he is now on Lovenox. We will switch him to Eliquis this evening. He has multiple other medical problems including; A. Hypertension. B. Hyperlipidemia. C. Benign prostatic hypertrophy. D., History of nephrolithiasis. E. Hypothyroidism. F. Bronchial asthma. G. Morbid obesity and obstructive sleep apnea, on CPAP. H: Generalized osteoarthritis. PLAN: To continue with IV clindamycin. I will discontinue his Lovenox and start him on Eliquis 10 mg twice a day for 7 days and then 5 mg twice a day thereafter. Once his swelling improves, might be able to discharge him home on oral, also clindamycin. TRACIE/MARY DR: Annia TID: [id number]
[2021-06-20 05:59] VITALS: BP 115/68
[2021-06-20] MEDS: CLINDAMYCIN 600MG PREMIX 50 ML IV SCH (06:09)
[2021-06-20 06:30] LABS: HEMATOCRIT 34.9 % (39.0-53.0); HEMOGLOBIN 11.5 g/dL (13.0-17.5); RED BLOOD COUNT 3.73 x10^6/uL (4.30-5.70); RED CELL DISTRIBUTION WIDTH 13.5 % (11.5-14.5); WHITE BLOOD COUNT 7.5 x10^3/uL (4.0-11.0)
[2021-06-20 06:52] LABS: ALBUMIN 2.5 g/dL (3.4-5.0); ALBUMIN/GLOBULIN RATIO 0.7 (1.0-1.7); CALCIUM 8.4 mg/dL (8.5-10.1); CREATININE 0.9 mg/dL (0.7-1.3); GFR 99.8; TOTAL BILIRUBIN 1.3 mg/dL (0.2-1.0); TOTAL PROTEIN 6.2 g/dL (6.4-8.2)
[2021-06-20] MEDS: LACTOBACILLUS RHAMNOSUS GG 1 CAPSULE. PO SCH (07:53)
[2021-06-20] MEDS: FINASTERIDE 5 MG TABLET. PO SCH (07:54)
[2021-06-20] MEDS: OXYBUTYNIN CHLORIDE 5 MG TABLET PO SCH (07:54)
[2021-06-20] MEDS: GABAPENTIN 300 MG CAPSULE. PO SCH (07:54)
[2021-06-20] MEDS: TERAZOSIN 5 MG CAPSULE. PO SCH (07:54)
[2021-06-20] MEDS: LUBIPROSTONE 24 MCG CAPSULE PO SCH (07:55)
[2021-06-20] MEDS: LEVOTHYROXINE 125 MCG TABLET PO SCH (07:55)
[2021-06-20] MEDS: PANTOPRAZOLE 40 MG TABLET. PO SCH (07:55)
[2021-06-20] MEDS: APIXABAN 5 MG TABLET. PO SCH (07:55)
[2021-06-20 10:47] VITALS: BP 134/74
[2021-06-20] MEDS ORDERED: CLIN-95 PO (13:17)
[2021-06-20] MEDS ORDERED: APIX5TAB5 PO (13:17)
--- NOTE | 2021-06-20 13:20 | DISCH ---
HOME HEALTH DISCHARGE/MEDS DISCHARGE INFORMATION: Discharge Date: Jun 20, 2021 Final Diagnosis: Problems Medical Problems: (1) Cellulitis Status: Acute (2) Right leg DVT Status: Acute Condition on Discharge: Stable CODE STATUS: Code Status: Full HOME HEALTH: Face to Face: I certify this patient is under my care and that I, or a nurse practitioner or physician's assistant program director working with me, had a face to face encounter that meets the physician face to face encounter requirements with this patient on 021 [facility] For: Medication Management Physical Therapy For: Evalulation/Treatment Occupational Therapy For: Evaluation/Treatment POST DISCHARGE ORDERS: Activity Instructions for Disc: Activity as tolerated DIET AFTER DISCHARGE: Cardiac CERTIFICATION STATEMENT: Certification Statement: Based on the above finding, I certify that this patient is confined to the home and needs intermittent senior care care, physical therapy and/or speech therapy, or continues to need occupational therapy.~ This patient is under my care, and I have initiated the establishment of the plan of care.~ This patient will be followed by myself or a community physician who will periodically review the plan of care. DISCHARGE MEDICATIONS: Home Meds Active Scripts Apixaban (Eliquis) 5 Mg Tab.ds.pk, 5 MG PO BID for DVT for 30 Days, #60 PKG 5 Refills Prov:WILLIAM SEGURA MD 06/20/21 Apixaban (Eliquis) 5 Mg Tab.ds.pk, 10 MG PO BID for DVT for 6 Days, #24 PKG Prov:WILLIAM SEGURA MD 06/20/21 Clindamycin Hcl (CLINDAMYCIN HCL) 300 Mg Capsule, 2 CAP PO TID for CELLULITIS for 7 Days, #42 CAP Prov:WILLIAM SEGURA MD 06/20/21 Ropinirole Hcl (REQUIP) 0.25 Mg Tablet, 0.5 MG PO QHS for RLS for 30 Days, #60 TAB Prov:WILLIAM SEGURA MD 06/12/19 Reported Medications Linaclotide (LINZESS) 145 Mcg Capsule, 145 MCG PO DAILY for IDIOPATHIC CONSTIPATION, CAP 06/18/21 Gabapentin (GABAPENTIN ) 300 Mg Capsule, 300 MG PO TID for NEUROGENIC PAIN, CAP 06/18/21 Latanoprost (XALATAN) 2.5 Ml Drops, 1 DROP OU QHS for GLAUCOMA, DROP 06/18/21 Zolpidem Tartrate (AMBIEN) 10 Mg Tablet, 10 MG PO PRN QHS PRN for INSOMNIA, TAB 0 Refills 06/18/21 Finasteride (FINASTERIDE) 5 Mg Tablet, 1 TAB PO DAILY for BPH LAST DOSE GIVEN: DATE: TODAY TIME: AM NEXT DOSE DUE: DATE: TOMORROW TIME: AM 06/29/18 Levothyroxine Sodium (LEVOTHYROXINE SODIUM) 125 Mcg Tablet, 1 TAB PO DAILY for THYROID HORMONE SUPPLEMENT LAST DOSE GIVEN: DATE: TODAY TIME: AM NEXT DOSE DUE: DATE: TOMORROW TIME: AM 06/29/18 Simvastatin (SIMVASTATIN) 40 Mg Tablet, 1 TAB PO QHS for HIGH CHOLESTEROL LAST DOSE GIVEN: DATE: YESTERDAY TIME: AT BEDTIME NEXT DOSE DUE: DATE: TODAY TIME: AT BEDTIME 06/29/18 Omeprazole (OMEPRAZOLE) 40 Mg Capsule.dr, 1 CAP PO DAILY for HEARTBURN LAST DOSE GIVEN: DATE: TIME: AM NEXT DOSE DUE: DATE: TOMORROW TIME: AM 06/29/18 Solifenacin Succinate (VESICARE) 5 Mg Tablet, 1 TAB PO DAILY for urge incontinence LAST DOSE GIVEN: DATE: TODAY TIME: AM NEXT DOSE DUE: DATE: TOMORROW TIME: AM 06/29/18 Albuterol Sulfate (VENTOLIN HFA INHALER) 18 Gm Hfa.aer.ad, 1 PUFF IH PRN Q4HRS PRN for FOR ASTHMA NOT GIVEN IN THE HOSPITAL NEXT DOSE DUE: DATE: RESTART TODAY TIME: IF AND WHEN NEEDED 06/29/18 Fluticasone/Vilanterol (BREO ELLIPTA 100-25 MCG INH) 1 Each Aer.pow.ba, 1 PUFF IH DAILY for ASTHMA NOT GIVEN IN THE HOSPITAL NEXT DOSE DUE: DATE: RESTART TODAY TIME: WHEN YOU GET HOME 06/29/18 Terazosin Hcl (TERAZOSIN HCL) 10 Mg Capsule, 0.5 CAP PO DAILY for URINE RETENTION LAST DOSE GIVEN: DATE: TODAY TIME: AM NEXT DOSE DUE: DATE: TOMORROW TIME: AM 06/29/18 Discontinued Reported Medications Eszopiclone (LUNESTA) 3 Mg Tablet, 2 MG PO HS for INSOMNIA NOT GIVEN IN THE HOSPITAL NEXT DOSE DUE: DATE: TODAY TIME: AT BEDTIME 06/11/19 Potassium Chloride (KLOR-CON M20) 20 Meq Tab.er.prt, 1 TAB PO DAILY for SUPPLEMENT LAST DOSE GIVEN: DATE: TODAY TIME: AM NEXT DOSE DUE: DATE: TOMORROW TIME: AM 06/29/18 Furosemide (LASIX) 20 Mg Tablet, 1 TAB PO DAILY for FLUID RETENTION LAST DOSE GIVEN: DATE: TODAY TIME: AM NEXT DOSE DUE: DATE: TOMORROW TIME: AM 06/29/18 WILLIAM SEGURA MD Jun 20, 2021 13:20
--- NOTE | 2021-06-20 13:30 | NUR ---
PATIENT HAD MONEY IN A SAFE THAT RETURNED BACK TO THE PATIENT PRIOR TO DISCHARGED.
--- NOTE | 2021-06-20 13:45 | NUR ---
PATIENT IS DISCHARGED HOME, DISCHARGED INSTRUCTIONS REVIEWED, PATIENT VERBALIZED UNDERSTANDING. PATIENT LEFT UNIT VIA AMBULATION. PATIENT IS TAKEN HOME BY HIS BROTHER VIA PERSONAL VEHICLE.
[2021-06-24] MEDS ORDERED: BRIN15DR4 OU (01:43)
[2021-06-24] MEDS ORDERED: FURO-69 PO (01:48)
[2021-06-24] MEDS ORDERED: FLUC200T4 PO (01:48)
[2021-06-24] MEDS ORDERED: POTA-112 PO (01:48)
[2021-06-24] MEDS ORDERED: ZIPR40CA2 PO (01:48)
[2021-06-26] MEDS ORDERED: APIXABAN 5 MG TABLET. PO SCH (09:00)
== END 2021-06-20 13:35 | disposition home health service (06) | DRG 300 ==
LOC: ER 14:21 → 1 SOUTH 17:49
PROVIDERS: ADMIT Internal Medicine; ATTEND Internal Medicine
DX: I82.401 Acute embolism and thrombosis of unspecified deep veins of right lower extremity (principal); L03.115 Cellulitis of right lower limb; I10 Essential (primary) hypertension; F41.9 Anxiety disorder, unspecified; M10.9 Gout, unspecified; G47.33 Obstructive sleep apnea (adult) (pediatric); E78.5 Hyperlipidemia, unspecified; E03.9 Hypothyroidism, unspecified; E66.01 Morbid (severe) obesity due to excess calories; J45.909 Unspecified asthma, uncomplicated; M15.9 Polyosteoarthritis, unspecified; N40.0 Benign prostatic hyperplasia without lower urinary tract symptoms; Z20.822 Contact with and (suspected) exposure to COVID-19; Z87.442 Personal history of urinary calculi; Z80.52 Family history of malignant neoplasm of bladder; Z88.1 Allergy status to other antibiotic agents; Z88.0 Allergy status to penicillin; Z88.8 Allergy status to other drugs, medicaments and biological substances; Z68.30 Body mass index [BMI] 30.0-30.9, adult
CPT/HCPCS: 36415; 74019; 74177; 80048; 80053; 81001; 84550; 85025; 85027; 85610; 93971; J1650; J3490; Q9967; U0003; 99285-25

== ENCOUNTER → 2021-08-20 | Outpatient (CLI) | payer MEDICARE, OTHER ==
[2021-06-24 14:25] VITALS: BP 104/56
[~2021-08-20] MED LIST changes: +APIX5TAB5 PO; +BRIN15DR4 OU; +CLIN-95 PO; +GABA-586 PO; +LATA2.5D2 OU; +LINA145C PO; +POTA-112 PO; +ZIPR40CA2 PO; +ZOLP10TA PO
--- NOTE | 2021-08-20 17:10 | RAD ---
MR#: [id number] Date of Study: 08/20/2021 Ordering Physician: DELPHINE CHAVEZ, Referring Physician: DELPHINE CHAVEZ, Tech: Sandy Dorado RVT,LYNDSAY APPROVED REPORT Patient Location : OUT-PATIENT Indications Lower Extremity Edema : History of DVT Past History DVT : Greater Saphenous Veins (GSV) Significant venous relux noted in the RIGHT GSV at the following levels : Superficial Femoral Junctio n Significant venous relux noted in the LEFT GSV at the following levels : Superficial Femoral Junction Critical Notification Critical Value: No <Conclusion> FINDINGS Grayscale images of bilateral saphenofemoral junctions and superficial veins both lower extremities w ere grossly normal without any obvious evidence of thrombus. Incidental note was made of lymph nodes both the groins, the largest one in the left groin measuring 4.4 x 2.1 cm. The lymph nodes were maryann cribed in prior venous studies and most probably reactive. Spectral waveform and color duplex analysis showed significant reflux involving bilateral greater sap henous veins at the saphenofemoral junctions without any significant reflux in the rest of the veins. The right greater saphenous vein measured 6 mm at the saphenofemoral junction and showed a reflux o f 1.5 seconds. The left greater saphenous vein measured 6 mm at the saphenofemoral junction and show ed a reflux of 1.5 seconds. The lesser saphenous veins bilaterally did not show any significant refl ux. CONCLUSION Bilateral lower extremity venous reflux study showed significant insufficiency involving bilateral gr eater saphenous veins at the saphenofemoral junctions without any significant reflux in the remaining segments. Incidental finding of lymph nodes both groins as noted above, described in prior venous s tudies. Signed by : Delphine Chavez, Electronically Approved : 08/20/2021 17:10:06
== END ==
LOC: US 12:25
PROVIDERS: ATTEND Internal Medicine Cardiovascular Disease
DX: I87.2 Venous insufficiency (chronic) (peripheral) (principal); R60.9 Edema, unspecified
CPT/HCPCS: 93970

== ENCOUNTER 2021-08-23 14:18 | Emergency (ER) | payer MEDICARE, OTHER ==
[~2021-08-23] VITALS: Ht 180.3 cm; Wt 98.7 kg
--- NOTE | 2021-08-23 14:33 | PHYS DOC ---
Past History Past Medical History: Anxiety, Hypertension Additional Past Medical Histor: CATARCTS, HERNIA, hx blood clots Past Surgical History: Other Additional Past Surgical Histo: hernia repair, lower rigth GI Alcohol Use: None Drug Use: None Adult General HPI HPI Patient is a 75-year-old male presenting via EMS for shortness of breath. Onset was several days ago without any known inciting event, trauma, ingestion, mechanism of injury or known exacerbating factor. States that he has numerous comorbid conditions, states that he has history of unknown diabetes mellitus, COPD, and hypertension for which she has not been taking any medications for for several months. Admits ongoing alcohol, tobacco and illicit drug use with specific recent use of marijuana and cocaine. Reports he called EMS today as he fell several days ago and has not been able to ambulate ever since due to generalized fatigue and shortness of breath prompting him to call EMS. Attempts were made to transport to local [place] where patient has all care provided but they diverted patient to our facility. Patient does admit he is fully vaccinated against COVID-19 and that he is full CODE STATUS Review of Systems Review of Systems Fourteen body systems of review of systems have been reviewed. See HPI for pertinent positives and negative responses, other salgado all other systems are negative, non-pertinent or non-contributory Allergies Allergies Allergies Coded Allergies Type Severity Reaction Last Updated Verified Penicillins Allergy Unknown 06/05/21 Yes Sulfa (Sulfonamide Antibiotics) Allergy Unknown 06/29/18 Yes ciprofloxacin Allergy Unknown 06/29/18 Yes doxycycline Allergy Unknown 06/29/18 Yes ibuprofen Allergy Unknown 06/29/18 Yes sulfamethoxazole Allergy Unknown 06/29/18 Yes tamsulosin Allergy Unknown 06/29/18 Yes tolterodine Allergy Unknown 06/29/18 Yes trazodone Allergy Unknown 06/29/18 Yes trimethoprim Allergy Unknown 06/29/18 Yes Physical Exam Physical Exam Constitutional: Well developed, well nourished, no acute distress, non-toxic appearance. HENT: Normocephalic, atraumatic, bilateral external ears normal, oropharynx moist, no oral exudates, nose normal. Eyes: PERRLA, EOMI, conjunctiva normal, no discharge. Neck: Normal range of motion, no tenderness, supple, no stridor. Cardiovascular: Heart rate regular, sinus rhythm, no murmurs rubs or gallops Lungs & Thorax: Bilateral breath sounds clear to auscultation Abdomen: Bowel sounds normal, soft, no tenderness, no masses, no pulsatile masses. Nonsurgical abdomen, no peritoneal signs Skin: Warm, dry, no erythema, no rash. Back: No tenderness, no CVA tenderness. Extremities: No tenderness, no cyanosis, no clubbing, ROM intact, no edema. Neurologic: Alert and oriented X 3, grossly normal motor & sensory function, no focal deficits noted. Psychologic: Affect normal, judgement normal, mood normal. EKG EKG EKG ordered and interpreted by myself at 1430 hrs. as sinus tachycardia at 105 bpm, unremarkable intervals, no axis deviation, no obvious ischemic findings, no STEMI Radiology/Procedures Radiology/Procedures [] Heart Score C/O Chest Pain: No HEART Score for Chest Pain: HEART Score for Chest Pain Response (Comments) Value History Slighlty/Non-Suspicious 0 ECG Nonspecific Repolarizatio 1 Age > 65 2 Risk Factors >3 Risk Factors or Hx CAD 2 Total 5 Risk Factors: Risk Factors: DM, Current or recent (<one month) smoker, HTN, HLP, family history of CAD, obesity. Risk Scores: Risk Factors: DM, Current or recent (<one month) smoker, HTN, HLP, family history of CAD, obesity. Course & Med Decision Making Course & Med Decision Making Pertinent Labs and Imaging studies reviewed. (See chart for details) [] Dragon Disclaimer Dragon Disclaimer This electronic medical record was generated, in whole or in part, using a voice recognition dictation system. Departure Departure: Referrals: CESAR NJ MD (PCP) GAL ORTIZ DO Aug 23, 2021 14:33
--- NOTE | 2021-08-23 16:18 | RAD ---
Exam: Left foot 3 views INDICATION: Pain to the great toe TECHNIQUE: Frontal, lateral and oblique views of the left foot Comparisons: None FINDINGS: Bone mineralization is normal. No acute or healed fractures. Soft tissues are unremarkable. Joint spa karime are well-maintained. IMPRESSION: No acute osseous abnormality Electronically signed by: Lucinda Stewart MD (08/23/2021 4:15 PM) MAMADOU
--- NOTE | 2021-08-23 16:21 | RAD ---
Exam: Chest one view INDICATION: Shortness of breath TECHNIQUE: Frontal view of the chest Comparisons: 06/11/2019 FINDINGS: The cardiomediastinal silhouette and pulmonary vessels are within normal limits. Patchy bilateral airspace disease. No pleural effusion. IMPRESSION: Subtle patchy bilateral airspace disease favored infectious or inflammatory in etiology. Electronically signed by: Lucinda Stewart MD (08/23/2021 4:19 PM) ONELIA
[2021-08-23] MEDS ORDERED: AZIT250T6 PO (16:45)
[2021-08-23] MEDS ORDERED: METH4TAB2 PO (16:45)
--- NOTE | 2021-08-23 16:45 | PHYS DOC ---
Past History Past Medical History: Anxiety, Hypertension Additional Past Medical Histor: CATARCTS, HERNIA, hx blood clots Past Surgical History: Colectomy Additional Past Surgical Histo: hernia repair, lower rigth GI Alcohol Use: None Drug Use: None Adult General Chief Complaint Chief Complaint: TOE PROBLEM [facility] HPI Patient is a 75-year-old male patient presented to the ED today to be evaluated for 1 out of 10 left great toe pain, symptoms began 2 days ago. Patient denies any injuries. Denies anything specific exacerbating or relieving the pain. Denies any history of gout. Describes the pain as sharp and intermittent was on touching the toe. He states he had abdominal surgery on August 2021 at [facility], he states he was diagnosed with DVT of the right lower extremity and was put on Eliquis. Denies any calf pain to the left. Denies any chest pain or shortness of breath. Patient is somewhat of a poor historian. Review of Systems Review of Systems Constitutional: Denies fever or chills [] Eyes: Denies change in visual acuity, redness, or eye pain [] HENT: Denies nasal congestion or sore throat [] Respiratory: Denies cough or shortness of breath [] Cardiovascular: No additional information not addressed in HPI [] GI: Denies abdominal pain, nausea, vomiting, bloody stools or diarrhea [] : Denies dysuria or hematuria [] Musculoskeletal: Reports left great toe pain Integument: Denies rash or skin lesions [] Neurologic: Denies headache, focal weakness or sensory changes [] All other systems were reviewed and found to be within normal limits, except as documented in this note. Allergies Allergies Allergies Coded Allergies Type Severity Reaction Last Updated Verified Penicillins Allergy Unknown 06/05/21 Yes Sulfa (Sulfonamide Antibiotics) Allergy Unknown 06/29/18 Yes ciprofloxacin Allergy Unknown 06/29/18 Yes doxycycline Allergy Unknown 06/29/18 Yes ibuprofen Allergy Unknown 06/29/18 Yes sulfamethoxazole Allergy Unknown 06/29/18 Yes tamsulosin Allergy Unknown 06/29/18 Yes tolterodine Allergy Unknown 06/29/18 Yes trazodone Allergy Unknown 06/29/18 Yes trimethoprim Allergy Unknown 06/29/18 Yes Physical Exam Physical Exam Constitutional: Well developed, well nourished, no acute distress, non-toxic appearance. [] HENT: Normocephalic, atraumatic, bilateral external ears normal, oropharynx moist, no oral exudates, nose normal. [] Eyes: PERRLA, EOMI, conjunctiva normal, no discharge. [] Neck: Normal range of motion, no tenderness, supple, no stridor. [] Cardiovascular:Heart rate regular rhythm, no murmur [] Lungs & Thorax: Bilateral breath sounds clear to auscultation [] Abdomen: Bowel sounds normal, soft, no tenderness, no masses, no pulsatile masses. [] Skin: Warm, dry, no erythema, no rash. [] Back: No tenderness, no CVA tenderness. [] Extremities: Bilateral lower extremities with no obvious deformity. Chronic lymphedema noted to bilateral lower extremities. Left great toe with no edema, no ecchymosis, no erythema, no tenderness on exam. +2 bilateral pedal pulses. Range of motion intact to the left toes. Cap refill less than 2 seconds on left toes, negative Homans' sign to the left lower extremity Neurologic: Alert and oriented X 3, normal motor function, normal sensory function, no focal deficits noted. [] Psychologic: Affect normal, judgement normal, mood normal. [] Current Patient Data Vital Signs Vital Signs Date Time Temp Pulse Resp B/P (MAP) Pulse Ox O2 Delivery O2 Flow Rate FiO2 08/23/21 14:55 98.2 52 20 128/59 (82) 96 Room Air EKG EKG [] Radiology/Procedures Radiology/Procedures []PROCEDURE: FOOT LEFT 3V Exam: Left foot 3 views INDICATION: Pain to the great toe TECHNIQUE: Frontal, lateral and oblique views of the left foot Comparisons: None FINDINGS: Bone mineralization is normal. No acute or healed fractures. Soft tissues are unremarkable. Joint spaces are well-maintained. IMPRESSION: No acute osseous abnormality Electronically signed by: Lucinda Quinonez MD (08/23/2021 4:15 PM) [facility] DICTATED AND SIGNED BY: LUCINDA QUINONEZ MD DATE: 08/23/21 1614 CC: GAL ORTIZ DO; PETAR VINES APRN; CESAR NJ MD ~MTH0 0 PROCEDURE: CHEST AP ONLY Exam: Chest one view INDICATION: Shortness of breath TECHNIQUE: Frontal view of the chest Comparisons: 06/11/2019 FINDINGS: The cardiomediastinal silhouette and pulmonary vessels are within normal limits. Patchy bilateral airspace disease. No pleural effusion. IMPRESSION: Subtle patchy bilateral airspace disease favored infectious or inflammatory in etiology. Electronically signed by: Lucinda Quinonez MD (08/23/2021 4:19 PM) [facility] DICTATED AND SIGNED BY: LUCINDA QUINONEZ MD DATE: 08/23/21 2663 CC: GAL ORTIZ DO; CESAR NJ MD ~MTH0 0 Heart Score C/O Chest Pain: N/A Risk Factors: Risk Factors: DM, Current or recent (<one month) smoker, HTN, HLP, family history of CAD, obesity. Risk Scores: Risk Factors: DM, Current or recent (<one month) smoker, HTN, HLP, family history of CAD, obesity. Course & Med Decision Making Course & Med Decision Making Pertinent Labs and Imaging studies reviewed. (See chart for details) This is a 75-year-old male patient presented to the ED today complaining of left great toe pain. Symptoms began yesterday. Patient is in no distress. Currently on Eliquis for DVT to the right lower extremity post op abd surgery. Left foot x-rays are negative for any acute findings. Patient had an incidental finding of patchy infiltrates bilaterally on chest x-ray. He will be tested for COVID-19 and discharged on azithromycin, Medrol Dosepak for his toe pain. Provided farm appraiser for follow-up Dragon Disclaimer Dragon Disclaimer This electronic medical record was generated, in whole or in part, using a voice recognition dictation system. Departure Departure: Impression: Primary Impression: Toe pain, left Additional Impression: Bilateral pneumonia Disposition: HOME / SELF CARE / HOMELESS Condition: STABLE Referrals: CESAR NJ MD (PCP) follow up with your doctor in one week Patient Instructions: Musculoskeletal Pain, Pneumonia, Adult, [id number] Additional Instructions: You were evaluated in the emergency room for foot pain, your left foot x-rays are negative for any acute findings. Continue taking your Eliquis for blood clots.You had a chest x-ray done which was noted for bilateral pneumonia. We put you on antibiotics for this. Take the Medrol Dosepak prescribed as ordered for your toe pain. Please follow-up with the provided cam specialist in the next week Scripts Methylprednisolone (MEDROL) 4 Mg Tab.ds.pk 1 PKG PO UD, #1 PKG Prov: JASMYNPETAR ASSISTANT SITE MANAGER 08/23/21 Azithromycin (AZITHROMYCIN TABLET) 250 Mg Tablet 1 PKG PO UD for 5 Days, #6 TAB 0 Refills 2 the first day followed by 1 for days 2-5 Prov: PETAR VINES APRN 08/23/21 Problem Qualifiers Additional Impression: Bilateral pneumonia Pneumonia type: due to unspecified organism Lung location: lower lobe of lung Qualified Codes: J18.9 - Pneumonia, unspecified organism PETAR VINES ASSISTANT SITE MANAGER Aug 23, 2021 16:45
[2021-08-23 16:55] VITALS: BP 115/58
== END 2021-08-23 17:00 | disposition home or self-care (01) ==
LOC: ER 14:18
DX: U07.1 COVID-19 (principal); J18.9 Pneumonia, unspecified organism; M79.675 Pain in left toe(s); F41.9 Anxiety disorder, unspecified; I10 Essential (primary) hypertension; Z79.01 Long term (current) use of anticoagulants; Z86.718 Personal history of other venous thrombosis and embolism; Z88.0 Allergy status to penicillin; Z88.2 Allergy status to sulfonamides; Z88.1 Allergy status to other antibiotic agents; Z88.8 Allergy status to other drugs, medicaments and biological substances
CPT/HCPCS: 71045; 73630; 99284; C9803; U0003

== ENCOUNTER 2021-09-26 12:58 | Inpatient (IN) | payer MEDICARE, OTHER ==
[~2021-09-26] VITALS: Ht 180.3 cm; Wt 96.4 kg
[~2021-09-26 12:58] MED LIST changes: +AZIT250T6 PO; -FLUC200T4 PO; +FLUC200T6 PO; +METH4TAB2 PO
--- NOTE | 2021-09-26 14:21 | RAD ---
Single view of the chest. 09/26/2021 2:06 PM Indication: Reason: ALTERED MENTAL STATUS / Spl. Instructions: / History: Comparison: Chest radiograph August 23, 2021 Findings: The patient is rotated. There no abnormal focal consolidation is identified. There is no pl eural effusion or pneumothorax. The cardiomediastinal silhouette and pulmonary vasculature are within normal limits. No acute osseous abnormalities are seen. Impression: No evidence of acute cardiopulmonary process. Electronically signed by: Samson Escobedo MD (09/26/2021 2:19 PM) [id number]
[2021-09-26 14:46] LABS: BASO # 0.1 x10^3/uL (0.0-0.2); BASO % 1 % (0-3); EOS # 0.2 x10^3/uL (0.0-0.7); EOS % 3 % (0-3); HEMOGLOBIN 13.7 g/dL (13.0-17.5); LYMPH # 1.7 x10^3/uL (1.0-4.8); LYMPH % 30 % (24-48); MEAN CORPUSCULAR HEMOGLOBIN 31 pg (25-35); MEAN CORPUSCULAR HGB CONC 33 g/dL (31-37); MEAN CORPUSCULAR VOLUME 95 fL (79-100); MONO # 0.7 x10^3/uL (0.0-1.1); MONO % 12 % (0-9); NEUT # 3.1 x10^3uL (1.8-7.7); NEUT % 54 % (31-73); PLATELET COUNT 165 x10^3/uL (140-400); RED BLOOD COUNT 4.44 x10^6/uL (4.30-5.70); RED CELL DISTRIBUTION WIDTH 13.8 % (11.5-14.5); WHITE BLOOD COUNT 5.8 x10^3/uL (4.0-11.0)
--- NOTE | 2021-09-26 14:50 | RAD ---
CT HEAD/BRAIN WO History: Altered mental status. Comparison: None. Technique: Noncontrast CT imaging was performed of the head. Findings: No intracranial hemorrhage. No mass effect. No hydrocephalus. No evidence of acute territorial infar ction. Imaged orbits are unremarkable. Imaged paranasal sinuses and mastoid air cells are clear. The scalp a nd calvarium are unremarkable. Impression: 1. No acute intracranial abnormality. ----- Exposure: One or more of the following individualized dose reduction techniques were utilized for thi s examination: 1. Automated exposure control 2. Adjustment of the mA and/or kV according to patient size 3. Use of iterative reconstruction technique. Electronically signed by: Blade Montoya MD (09/26/2021 2:48 PM) [id number]
[2021-09-26 14:54] LABS: CREATININE 0.8 mg/dL (0.7-1.3); GFR 114.3; POTASSIUM 3.9 mmol/L (3.5-5.1)
[2021-09-26 15:00] LABS: ALBUMIN 3.7 g/dL (3.4-5.0); ALBUMIN/GLOBULIN RATIO 1.2 (1.0-1.7); TOTAL BILIRUBIN 1.8 mg/dL (0.2-1.0); TOTAL PROTEIN 6.7 g/dL (6.4-8.2)
[2021-09-26 16:01] LABS: BACTERIA,URINE 0 /HPF (0-FEW); BILIRUBIN,URINE NEG (NEG); CLARITY,URINE HAZY; COLOR,URINE YELLOW; GLUCOSE,URINE NEG (NEG); NITRITE,URINE NEG (NEG); RBC,URINE 20-40 /HPF (0-2); UROBILINOGEN,URINE 0.2 mg/dL (0.2 mg/dL); WBC,URINE >40 /HPF (0-4)
[2021-09-26 16:02] LABS: SQUAMOUS EPITHELIAL CELL,UR MOD /LPF; YEAST,URINE PRESENT /HPF
--- NOTE | 2021-09-26 16:23 | EKG ---
[address] [address] Test Date: 2021-09-26 Test Time: 14:22:24 Pat Name: HUBERT GARAY Department: Room: Gender: M Vamp Marker: KARAN : 1945 Requested By: SIMONE BAPTISTE Order Number: [id number] Reading MD: Filipe Gastelum MD Measurements Intervals Arthur Rate: 71 P: 52 WV: 134 QRS: 4 QRSD: 86 T: 80 QT: 496 QTc: 539 Interpretive Statements SINUS RHYTHM PVC Electronically Signed On 09-29-2021 8:28:01 TRAINING ENGINEER by Filipe Gastelum MD
[2021-09-26] MEDS ORDERED: AZIT250T6 PO (16:47)
--- NOTE | 2021-09-26 16:53 | PHYS DOC ---
Past History Past Medical History: Anxiety, Hypertension Additional Past Medical Histor: CATARCTS, HERNIA, hx blood clots (SIMONE ABPTISTE APRN) Past Surgical History: No Surgical History Additional Past Surgical Histo: hernia repair, lower rigth GI (SIMONE BAPTISTE APRN) Alcohol Use: None Drug Use: None (SIMONE BAPTISTE APRN) General Adult EDM: Chief Complaint: PSYCH EVALUATION HPI: HPI: Patient is a 89-vnvy-[age]-year-old male who presents with altered mental status from assisted living. Patient states he saw his SECURITY ALARM TECHNICIAN this morning and was told he needed to come to the ER to be checked out. Patient is alert and oriented x4.. Patient was frequently losing track of thought and time. Denies pain. Denies fever or recent illness. History of anxiety and hypertension. (SIMONE BAPTISTE APRN) Review of Systems: Review of Systems: Constitutional: Denies fever or chills Eyes: Denies change in visual acuity HENT: Denies nasal congestion or sore throat Respiratory: Denies cough or shortness of breath Cardiovascular: Denies chest pain or edema GI: Denies abdominal pain, nausea, vomiting, bloody stools or diarrhea : Denies dysuria Musculoskeletal: Denies back pain or joint pain Integument: Denies rash Neurologic: Denies headache, focal weakness or sensory changes Endocrine: Denies polyuria or polydipsia Lymphatic: Denies swollen glands Psychiatric: History of depression or anxiety (SIMONE BAPTISTE APRN) Allergies: Allergies: Allergies Coded Allergies Type Severity Reaction Last Updated Verified Penicillins Allergy Unknown 06/05/21 Yes Sulfa (Sulfonamide Antibiotics) Allergy Unknown 06/29/18 Yes ciprofloxacin Allergy Unknown 06/29/18 Yes doxycycline Allergy Unknown 06/29/18 Yes ibuprofen Allergy Unknown 06/29/18 Yes sulfamethoxazole Allergy Unknown 06/29/18 Yes tamsulosin Allergy Unknown 06/29/18 Yes tolterodine Allergy Unknown 06/29/18 Yes trazodone Allergy Unknown 06/29/18 Yes trimethoprim Allergy Unknown 06/29/18 Yes (SIMONE BAPTISTE APRN) Physical Exam: PE: Constitutional: Well developed, well nourished, no acute distress, non-toxic appearance. [] HENT: Normocephalic, atraumatic, bilateral external ears normal, oropharynx moist, no oral exudates, nose normal. [] Eyes: PERRLA, EOMI, conjunctiva normal, no discharge. [] Neck: Normal range of motion, no tenderness, supple, no stridor. [] Cardiovascular:Heart rate regular rhythm, no murmur [] Lungs & Thorax: Bilateral breath sounds clear to auscultation [] Abdomen: Bowel sounds normal, soft, no tenderness, no masses, no pulsatile masses. [] Skin: Warm, dry, no erythema, no rash. [] Back: No tenderness, no CVA tenderness. [] Extremities: No tenderness, no cyanosis, no clubbing, ROM intact, no edema. [] Neurologic: Alert and oriented X 3, normal motor function, normal sensory function, no focal deficits noted. [] Psychologic: Affect normal, judgement normal, mood normal. [] (SIMONE BAPTISTE APRN) Current Patient Data: Labs: Laboratory Tests Test 09/26/21 14:20 09/26/21 14:50 White Blood Count 5.8 x10^3/uL (4.0-11.0) Red Blood Count 4.44 x10^6/uL (4.30-5.70) Hemoglobin 13.7 g/dL (13.0-17.5) Hematocrit 42.0 % (39.0-53.0) Mean Corpuscular Volume 95 fL (79-100) Mean Corpuscular Hemoglobin 31 pg (25-35) Mean Corpuscular Hemoglobin Concent 33 g/dL (31-37) Red Cell Distribution Width 13.8 % (11.5-14.5) Platelet Count 165 x10^3/uL (140-400) Neutrophils (%) (Auto) 54 % (31-73) Lymphocytes (%) (Auto) 30 % (24-48) Monocytes (%) (Auto) 12 % (0-9) H Eosinophils (%) (Auto) 3 % (0-3) Basophils (%) (Auto) 1 % (0-3) Neutrophils # (Auto) 3.1 x10^3uL (1.8-7.7) Lymphocytes # (Auto) 1.7 x10^3/uL (1.0-4.8) Monocytes # (Auto) 0.7 x10^3/uL (0.0-1.1) Eosinophils # (Auto) 0.2 x10^3/uL (0.0-0.7) Basophils # (Auto) 0.1 x10^3/uL (0.0-0.2) Sodium Level 143 mmol/L (136-145) Potassium Level 3.9 mmol/L (3.5-5.1) Chloride Level 106 mmol/L (98-107) Carbon Dioxide Level 25 mmol/L (21-32) Anion Gap 12 (6-14) Blood Urea Nitrogen 9 mg/dL (8-26) Creatinine 0.8 mg/dL (0.7-1.3) Estimated GFR (Cockcroft-Gault) 114.3 BUN/Creatinine Ratio 11 (6-20) Glucose Level 83 mg/dL (70-99) Calcium Level 9.0 mg/dL (8.5-10.1) Total Bilirubin 1.8 mg/dL (0.2-1.0) H Aspartate Amino Transferase (AST) 18 U/L (15-37) Alanine Aminotransferase (ALT) 15 U/L (16-63) L Alkaline Phosphatase 75 U/L (46-116) Troponin I High Sensitivity 12 ng/L (4-75) Total Protein 6.7 g/dL (6.4-8.2) Albumin 3.7 g/dL (3.4-5.0) Albumin/Globulin Ratio 1.2 (1.0-1.7) Urine Collection Type Clean catch Urine Color Yellow Urine Clarity Hazy Urine pH 5.5 Urine Specific [place] >=1.030 Urine Protein 30 mg/dl (NEG-TRACE) Urine Glucose (UA) Neg mg/dL (NEG) Urine Ketones (Stick) 15 mg/dL (NEG) Urine Blood Large (NEG) Urine Nitrite Neg (NEG) Urine Bilirubin Neg (NEG) Urine Urobilinogen Dipstick 0.2 mg/dL (0.2 mg/dL) Urine Leukocyte Esterase Small (NEG) Urine RBC 20-40 /HPF (0-2) Urine WBC >40 /HPF (0-4) Urine Squamous Epithelial Cells Mod /LPF Urine Bacteria 0 /HPF (0-FEW) Urine Yeast Present /HPF Vital Signs: Vital Signs Date Time Temp Pulse Resp B/P (MAP) Pulse Ox O2 Delivery O2 Flow Rate FiO2 09/26/21 13:08 97.9 69 18 138/66 (90) 100 Room Air (SIMONE BAPTISTE APRN) EKG: EKG: [] (SIMONE BAPTISTE APRN) Radiology/Procedures: Radiology/Procedures: []CT HEAD/BRAIN WO History: Altered mental status. Comparison: None. Technique: Noncontrast CT imaging was performed of the head. Findings: No intracranial hemorrhage. No mass effect. No hydrocephalus. No evidence of acute territorial infarction. Imaged orbits are unremarkable. Imaged paranasal sinuses and mastoid air cells are clear. The scalp and calvarium are unremarkable. Impression: 1. No acute intracranial abnormality. ----- Exposure: One or more of the following individualized dose reduction techniques were utilized for this examination: 1. Automated exposure control 2. Adjustment of the mA and/or kV according to patient size 3. Use of iterative reconstruction technique. Electronically signed by: Blade Montoya MD (09/26/2021 2:48 PM) [id number] Single view of the chest. 09/26/2021 2:06 PM Indication: Reason: ALTERED MENTAL STATUS / Spl. Instructions: / History: Comparison: Chest radiograph August 23, 2021 Findings: The patient is rotated. There no abnormal focal consolidation is identified. There is no pleural effusion or pneumothorax. The cardiomediastinal silhouette and pulmonary vasculature are within normal limits. No acute osseous abnormalities are seen. Impression: No evidence of acute cardiopulmonary process. Electronically signed by: Samson Escobedo MD (09/26/2021 2:19 PM) [id number] (SIMONE BAPTISTE APRN) Heart Score: C/O Chest Pain: No Risk Factors: Risk Factors: DM, Current or recent (<one month) smoker, HTN, HLP, family history of CAD, obesity. Risk Scores: Score 0 - 3: 2.5% MACE over next 6 weeks - Discharge Home Score 4 - 6: 20.3% MACE over next 6 weeks - Admit for Clinical Observation Score 7 - 10: 72.7% MACE over next 6 weeks - Early Invasive Strategies (SIMONE BAPTISTE APRN) Course & Med Decision Making: Course & Med Decision Making Pertinent Labs and Imaging studies reviewed. (See chart for details) [] 75-year-old male presents with altered mental status from assisted living. Patient is alert and oriented x4. Work-up in ER consisted of labs, urinalysis, chest x-ray, EKG. All labs and imaging unremarkable. Urine positive small leuks, greater than 40 WBCs. Patient given IM Rocephin. Patient does currently live independently. Discussed the case with Dr. Urbina who is willing to accept patient for inpatient care to treat UTI and altered mental status. Advised patient he would be admitted to the hospital. Patient is okay with admission plan. (SIMONE BAPTISTE APRN) Dragon Disclaimer: Dragon Disclaimer: This electronic medical record was generated, in whole or in part, using a voice recognition dictation system. (SIMONE BAPTISTE APRN) Attending Co-Sign The patient was seen and interviewed as well as examined at the bedside. The chart was reviewed. The case was discussed. Agree with the plan of care. (JÚNIOR ALVARADO DO) Departure Departure: Impression: Primary Impression: UTI (urinary tract infection) Qualified Codes: N30.01 - Acute cystitis with hematuria Additional Impression: Altered mental status Qualified Codes: R41.0 - Disorientation, unspecified Disposition: HOME / SELF CARE / HOMELESS Admitting Physician: Kathie Nelson (SIMONE BAPTISTE APRN) Condition: STABLE Referrals: PRAFUL TOUSSAINT (PCP) Additional Instructions: You were seen in the emergency room for urinary tract infection. You were sent home with antibiotic. Make sure you take in full instructed. Drink plenty of fluids. Return emergency room for worsening symptoms or concerns. EMERGENCY DEPARTMENT GENERAL DISCHARGE INSTRUCTIONS Thank you for coming to [facility] (ED) today and trusting us with you care. We trust that you had a positivie experience in our Emergency Department. If you wish to speak to the department management, you may call the director at [phone]. YOUR FOLLOW UP INSTRUCTIONS ARE FOLLOWS: 1. Do you have a private Doctor? If you do not have a private doctor, please ask for a resource list of physicians or clinics that may be able to assist you with follow up care. 2. The Emergency Physician has interpreted your x-rays. The X-Ray specialist will also review them. If there is a change in the findings, you will be notified in 48 hours when at all possible. 3. A lab test or culture has been done, your results will be reviewed and you will be notified if you need a change in treatment. ADDITIONAL INSTRUCTIONS AND INFORMATION: 1. Your care today has been supervised by a physician who is specially trained in emergency care. Many problems require more than one evaluation for a complete diagnosis and treatment. We recommend that you schedule your follow up appointment as recommended to ensure complete treatment of you illness or injury. If you are unable to obtain follow up care and continue to have a problem, or if your condition worsens, we recommend that you return to the ED. 2. We are not able to safely determine your condition over the phone nor are we able to give sound medical advice over the phone. For these safety reasons, if you call for medical advice we will ask you to come to the ED for further evaluation. 3. If you have any questions regarding these discharge instructions please call the ED at [phone]. SAFETY INFORMATION: In the interest of safety, wellness, and injury prevention; we encourage you to wear your sealbelt, if you smoke; quite smoking, and we encourage family to use a protective helmet for bicycling and other sporting events that present an increased risk for head injury. IF YOUR SYMPTOMS WORSEN OR NEW SYMPTOMS DEVELOP, OR YOU HAVE CONCERNS ABOUT YOUR CONDITION; OR IF YOUR CONDITION WORSENS WHILE YOU ARE WAITING FOR YOUR FOLLOW UP APPOINTMENT; EITHER CONTACT YOUR PRIMARY CARE DOCTOR, THE PHYSICIAN WHOSE NAME AND NUMBER YOU WERE GIVEN, OR RETURN TO THE ED IMMEDIATELY. SIMONE BAPTISTE APRN Sep 26, 2021 16:52 JÚNIOR ALVARADO DO Sep 29, 2021 06:23
[2021-09-26] MEDS ORDERED: cefTRIAXone IM 1 GM VIAL IM ONE (17:00)
[2021-09-26] MEDS ORDERED: IV NORMAL SALINE 1,000ML 1,000 ML IV SCH (17:15)
[2021-09-26 21:41] VITALS: BP 153/74
[2021-09-26] MEDS ORDERED: MEROPENEM 1 GM in IV NORMAL SALINE 100ML 100 ML IV SCH (22:00)
[2021-09-26] MEDS ORDERED: TERA5CAP3 PO (22:30)
[2021-09-26] MEDS ORDERED: LORA10CA PO (22:47)
[2021-09-26] MEDS: IV NORMAL SALINE 1,000ML 1,000 ML IV SCH (23:00)
[2021-09-26 23:11] LABS: INFLUENZA A PATIENT NEGATIVE (NEGATIVE); INFLUENZA B PATIENT NEGATIVE (NEGATIVE)
[2021-09-26 23:49] VITALS: BP 115/59
[2021-09-27 05:15] VITALS: BP 118/64
[2021-09-27] MEDS ORDERED: ZOLPIDEM 5 MG TABLET. PO PRN (07:00)
[2021-09-27] MEDS ORDERED: ANTI-COAG MONITOR BY PHARMACY. MC PRN (07:00)
[2021-09-27 08:38] LABS: HEMATOCRIT 44.2 % (39.0-53.0); RED BLOOD COUNT 4.48 x10^6/uL (4.30-5.70); RED CELL DISTRIBUTION WIDTH 14.3 % (11.5-14.5); WHITE BLOOD COUNT 5.4 x10^3/uL (4.0-11.0)
[2021-09-27] MEDS: FINASTERIDE 5 MG TABLET. PO SCH (08:47)
[2021-09-27] MEDS: GABAPENTIN 300 MG CAPSULE. PO SCH ×3 (08:47→20:56)
[2021-09-27] MEDS: POTASSIUM CHLORIDE 20 MEQ TABLET.ER. PO SCH (08:48)
[2021-09-27] MEDS: OXYBUTYNIN CHLORIDE 5 MG TABLET PO SCH ×3 (08:48→20:56)
[2021-09-27] MEDS: LEVOTHYROXINE 125 MCG TABLET PO SCH (08:48)
[2021-09-27] MEDS: APIXABAN 5 MG TABLET. PO SCH ×2 (08:48→20:56)
[2021-09-27] MEDS: FUROSEMIDE 20 MG TABLET PO SCH (08:48)
[2021-09-27] MEDS: DORZOLAMIDE 2% OPHTH SOLUTION 10ML BOTTLE. OU SCH (08:50)
[2021-09-27] MEDS: LUBIPROSTONE 24 MCG CAPSULE PO SCH ×2 (08:50→18:13)
[2021-09-27 09:33] LABS: ALBUMIN 3.2 g/dL (3.4-5.0); CALCIUM 8.2 mg/dL (8.5-10.1); GFR 88.4; TOTAL BILIRUBIN 1.6 mg/dL (0.2-1.0); TOTAL PROTEIN 6.4 g/dL (6.4-8.2)
[2021-09-27 10:06] VITALS: BP 108/54
[2021-09-27] MEDS: IV NORMAL SALINE 1,000ML 1,000 ML IV SCH (11:52)
[2021-09-27 14:51] VITALS: BP 126/63
[2021-09-27] MEDS: ZIPRASIDONE 60 MG CAPSULE. PO SCH (15:22)
--- NOTE | 2021-09-27 16:48 | HP ---
DATE OF SERVICE: 09/27/2021 ADMIT DATE: 09/26/2021 HISTORY OF PRESENT ILLNESS: The patient is a 75-year-old -[place] male patient who presented to the Emergency Room for psych evaluation. He presented with altered mental status from an assisted living. He states that he saw his nurse practitioner on the morning of admission and was told he needed to come to the Emergency Room to be checked out. He is alert and oriented x 4. The patient was frequently losing track of thought and time. Denies any pain. Denies any fever or recent illness. History of anxiety and hypertension. He was extensively investigated in the Emergency Room; and together with physical exam, he has lab work and imaging studies. His lab work showed that his CBC was unremarkable. His chemistry also was unremarkable. However, his urinalysis showed that the patient has a small amount of leukocyte esterase and more than 40 wbc's. His coronavirus by PCR was not detectable and he was negative for influenza A and B. He has had a CT scan of the head, which was unremarkable with no acute intracranial abnormality. His chest x-ray was also unrevealing, and the patient was admitted with diagnoses of altered mental status and urinary tract infection. He was treated with IV fluid and IV antibiotic, and was admitted to continue with IV antibiotic. On questioning him, it transpired that he has also suicidal ideation and he has plans to commit suicide by taking a bunch of tablets. He said that he thought about it before and he has this idea in his mind, although he has not acted upon it yet. He stated that his brother lives above him and he is deliberately trying to annoy him, as he does not want him to be there. [facility] his apartment, but so far, he was unable to do that and his brother is consistently watching him and making this noise that basically annoys him whenever he turns the light on in his kitchen. PAST MEDICAL HISTORY: Significant for hypertension, hyperlipidemia, benign prostatic hypertrophy. He had a history of nephrolithiasis, hypothyroidism, bronchial asthma, morbid obesity and obstructive sleep apnea on CPAP, and has generalized osteoarthritis. PAST SURGICAL HISTORY: Significant for right inguinal hernia repair, colonoscopy with decompression of sigmoid volvulus and partial colectomy. ALLERGIES: HE IS ALLERGIC TO PENICILLIN, SULFA DRUGS, CIPROFLOXACIN, DOXYCYCLINE, IBUPROFEN, SULFAMETHOXAZOLE, TRIMETHOPRIM, TAMSULOSIN, TOLTERODINE, TRAZODONE, AND TRIMETHOPRIM. FAMILY HISTORY: He has two brothers that are still alive and healthy. Two sisters, both , one because of DVT and PE and one younger sister because of drug overdose. One brother of alcoholism. Father at the age of 95 because of bladder cancer. Mother at the age of 95. SOCIAL HISTORY: He is single, never , has no children. He does not smoke, drink alcohol or use recreational drugs. He used to work for [employer] and also worked at [employer] in the kitchen. REVIEW OF SYSTEMS: As per history of present illness. PHYSICAL EXAMINATION: GENERAL: On arrival to the Emergency Room, he looked well and was clearly in no apparent respiratory distress. No pallor, jaundice, cyanosis or thyromegaly. No jugular venous distention. No lower limb edema. VITAL SIGNS: His heart rate was 82, blood pressure was 153/74, temperature was 98.1, respiratory rate was 16, and oxygen saturation was 99%. HEAD, EYES, EARS, NOSE, AND THROAT: Normocephalic, atraumatic. NECK: Supple. HEART: Normal first and second heart sounds. No gallop, rub or murmur. CHEST: Shows central trachea, equal bilateral chest expansion, air entry, vesicular breath sounds. No crepitation or rhonchi. ABDOMEN: Distended, soft, nontender. NEUROLOGIC: He was grossly intact. PSYCHIATRIC: From the psychiatric point of view, the patient seemed to have some form of paranoid delusion, stating that his brother is watching him and that whenever he turns the light on in his kitchen, the brother makes this noise that annoys him. His brother apparently lives on the floor above him. LABORATORY DATA: His lab work on arrival showed a white cell count 5800, hemoglobin 13.7, hematocrit 42, MCV 95 and platelet count of 165,000 with normal manual differential. His serum sodium 143, potassium 3.9, chloride 106, bicarbonate 25, anion gap of 12, BUN 19, creatinine 0.8. Estimated GFR was 114 mL per minute. His glucose 83, calcium was 9, magnesium was 1.8. Total bilirubin is 1.8. AST, ALT, alkaline phosphatase were normal. Troponin I was 12. Total protein 6.7, albumin 3.7. His urinalysis showed the urine was yellow, hazy with a pH of 5.5, specific gravity more than 1.030, with a small amount of protein. The urine was negative for glucose, small amount of ketones, , negative for nitrite and bilirubin, small amount of leukocyte esterase, 20-40 rbc's, more than 40 wbc's, no bacteria. His coronavirus by PCR was negative. His influenza A and B were negative. His CT scan of the head was unremarkable and unrevealing with no acute intracranial abnormality, and a chest x-ray was also unremarkable. ASSESSMENT: The patient was admitted with urinary tract infection, for which he was started on IV antibiotic. He has also altered mental status with probably paranoid delusions, for which we will consult the psychiatrist. He has a multitude of other medical problems including: A. Hypertension. B. Hyperlipidemia. C. Benign prostatic hypertrophy. D. History of nephrolithiasis. E. Hypothyroidism. F. Bronchial asthma. G. Morbid obesity and obstructive sleep apnea, on CPAP. PLAN: To continue with IV antibiotic. Continue with all his medications. I will consult Dr. Silva to assist in his management. TRACIE/SUJATA ROSENBAUM: TRACIE/magda TID: [id number]
[2021-09-27 19:10] VITALS: BP 117/65
[2021-09-27] MEDS: CETIRIZINE HCL 10 MG TABLET PO SCH (20:56)
[2021-09-27] MEDS: LACTOBACILLUS RHAMNOSUS GG 1 CAPSULE. PO SCH (20:56)
[2021-09-27] MEDS: LATANOPROST 0.005% OPHTH SOLUTION 2.5ML BOTTLE. OU SCH (20:56)
[2021-09-27] MEDS: TERAZOSIN 5 MG CAPSULE. PO SCH (20:57)
--- NOTE | 2021-09-27 22:15 | PDOC ---
Exam Note: Taye Note: Please also refer to the separate dictated note~for this date of service dictated separately.~Patient seen individually. Discussed the patient with Nursing staff reviewed the chart.~Reviewed interim history and current functioning. Reviewed vital signs,~Labs/ Radiology~and current medications noted below. Continue current treatment with the changes noted in the dictated addendum note Assessment: Vital Signs/I&O: Vital Signs Date Time Temp Pulse Resp B/P (MAP) Pulse Ox O2 Delivery O2 Flow Rate FiO2 09/27/21 20:57 54 115/66 09/27/21 19:10 98.2 20 94 Room Air I & O 09/26/21 09/26/21 09/27/21 15:00 23:00 07:00 Intake Total 320 ml Output Total 250 ml Balance 70 ml Labs: Laboratory Tests Test 09/27/21 08:01 White Blood Count 5.4 x10^3/uL (4.0-11.0) Red Blood Count 4.48 x10^6/uL (4.30-5.70) Hemoglobin 14.0 g/dL (13.0-17.5) Hematocrit 44.2 % (39.0-53.0) Mean Corpuscular Volume 99 fL (79-100) Mean Corpuscular Hemoglobin 31 pg (25-35) Mean Corpuscular Hemoglobin Concent 32 g/dL (31-37) Red Cell Distribution Width 14.3 % (11.5-14.5) Platelet Count 71 x10^3/uL (140-400) L Sodium Level 141 mmol/L (136-145) Potassium Level 4.0 mmol/L (3.5-5.1) Chloride Level 107 mmol/L (98-107) Carbon Dioxide Level 24 mmol/L (21-32) Anion Gap 10 (6-14) Blood Urea Nitrogen 7 mg/dL (8-26) L Creatinine 1.0 mg/dL (0.7-1.3) Estimated GFR (Cockcroft-Gault) 88.4 BUN/Creatinine Ratio 7 (6-20) Glucose Level 78 mg/dL (70-99) Calcium Level 8.2 mg/dL (8.5-10.1) L Total Bilirubin 1.6 mg/dL (0.2-1.0) H Aspartate Amino Transferase (AST) 18 U/L (15-37) Alanine Aminotransferase (ALT) 10 U/L (16-63) L Alkaline Phosphatase 70 U/L (46-116) Total Protein 6.4 g/dL (6.4-8.2) Albumin 3.2 g/dL (3.4-5.0) L Albumin/Globulin Ratio 1.0 (1.0-1.7) Current Medications: Meds: Laboratory Tests Test 09/27/21 08:01 White Blood Count 5.4 x10^3/uL Red Blood Count 4.48 x10^6/uL Hemoglobin 14.0 g/dL Hematocrit 44.2 % Mean Corpuscular Volume 99 fL Mean Corpuscular Hemoglobin 31 pg Mean Corpuscular Hemoglobin Concent 32 g/dL Red Cell Distribution Width 14.3 % Platelet Count 71 x10^3/uL Sodium Level 141 mmol/L Potassium Level 4.0 mmol/L Chloride Level 107 mmol/L Carbon Dioxide Level 24 mmol/L Anion Gap 10 Blood Urea Nitrogen 7 mg/dL Creatinine 1.0 mg/dL Estimated GFR (Cockcroft-Gault) 88.4 BUN/Creatinine Ratio 7 Glucose Level 78 mg/dL Calcium Level 8.2 mg/dL Total Bilirubin 1.6 mg/dL Aspartate Amino Transf (AST/SGOT) 18 U/L Alanine Aminotransferase (ALT/SGPT) 10 U/L Alkaline Phosphatase 70 U/L Total Protein 6.4 g/dL Albumin 3.2 g/dL Albumin/Globulin Ratio 1.0 Current Medications Medications (Trade) Dose Ordered Sig/Nadege Route PRN Reason Start Time Stop Time Status Last Admin Dose Admin Meropenem 1 gm/ Sodium Chloride 100 ml @ 200 mls/hr Q8HRS IV 09/26/21 22:00 09/26/21 16:48 DC Ceftriaxone Sodium (Rocephin Im) 1 gm 1X ONCE IM 09/26/21 17:00 09/26/21 17:01 DC 09/26/21 17:10 Sodium Chloride 1,000 ml @ 75 mls/hr [id number] IV 09/26/21 17:15 09/26/21 22:56 DC Ceftriaxone Sodium 1 gm/ Sodium Chloride 50 ml @ 100 mls/hr 1X ONCE IV 09/26/21 17:15 09/26/21 17:44 DC Ceftriaxone Sodium 1 gm/ Sodium Chloride 50 ml @ 100 mls/hr 1X ONCE IV 09/27/21 17:00 09/27/21 17:29 DC 09/27/21 18:06 Sodium Chloride 1,000 ml @ 75 mls/hr [id number] IV 09/26/21 23:00 09/27/21 22:59 09/27/21 11:52 Finasteride (Proscar) 5 mg DAILY PO 09/27/21 09:00 09/27/21 08:47 Furosemide (Lasix) 20 mg DAILY PO 09/27/21 09:00 09/27/21 08:48 Gabapentin (Neurontin) 300 mg TID PO 09/27/21 09:00 09/27/21 20:56 Latanoprost (Xalatan) 1 drop QHS OU 09/27/21 21:00 09/27/21 20:56 Levothyroxine Sodium (Synthroid) 125 mcg DAILY06 PO 09/27/21 07:00 09/27/21 08:48 Potassium Chloride (Klor-Con) 20 meq DAILY PO 09/27/21 09:00 09/27/21 08:48 Terazosin HCl (Hytrin) 5 mg QHS PO 09/27/21 21:00 Ziprasidone (Geodon) 60 mg DAILY16 PO 09/27/21 16:00 09/27/21 15:22 Apixaban (Eliquis) 5 mg BID PO 09/27/21 09:00 09/27/21 20:56 Dorzolamide HCl (Trusopt) 1 drop DAILY OU 09/27/21 09:00 09/27/21 08:50 Lubiprostone (Amitiza) 24 mcg BIDWMEALS PO 09/27/21 08:00 09/27/21 18:13 Cetirizine HCl (ZyrTEC) 10 mg HS PO 09/27/21 21:00 09/27/21 20:56 Oxybutynin Chloride (Ditropan) 5 mg [id number] PO 09/27/21 09:00 09/27/21 20:56 Zolpidem Tartrate (Ambien) 5 mg PRN QHS PRN PO INSOMNIA, MAY REPEAT X1 09/27/21 07:00 Info (Anti-Coagulation Monitoring By Pharmacy) 1 each PRN DAILY PRN MC PER PROTOCOL 09/27/21 07:00 Lactobacillus Rhamnosus (Culturelle) 1 cap BID PO 09/27/21 21:00 09/27/21 20:56 Current Medications Medications (Trade) Dose Ordered Sig/Nadege Route PRN Reason Start Time Stop Time Status Last Admin Dose Admin Ceftriaxone Sodium 1 gm/ Sodium Chloride 50 ml @ 100 mls/hr 1X ONCE IV 09/27/21 17:00 09/27/21 17:29 DC 09/27/21 18:06 Sodium Chloride 1,000 ml @ 75 mls/hr [id number] IV 09/26/21 23:00 09/27/21 22:59 09/27/21 11:52 Finasteride (Proscar) 5 mg DAILY PO 09/27/21 09:00 09/27/21 08:47 Furosemide (Lasix) 20 mg DAILY PO 09/27/21 09:00 09/27/21 08:48 Gabapentin (Neurontin) 300 mg TID PO 09/27/21 09:00 09/27/21 20:56 Latanoprost (Xalatan) 1 drop QHS OU 09/27/21 21:00 09/27/21 20:56 Levothyroxine Sodium (Synthroid) 125 mcg DAILY06 PO 09/27/21 07:00 09/27/21 08:48 Potassium Chloride (Klor-Con) 20 meq DAILY PO 09/27/21 09:00 09/27/21 08:48 Ziprasidone (Geodon) 60 mg DAILY16 PO 09/27/21 16:00 09/27/21 15:22 Apixaban (Eliquis) 5 mg BID PO 09/27/21 09:00 09/27/21 20:56 Dorzolamide HCl (Trusopt) 1 drop DAILY OU 09/27/21 09:00 09/27/21 08:50 Lubiprostone (Amitiza) 24 mcg BIDWMEALS PO 09/27/21 08:00 09/27/21 18:13 Cetirizine HCl (ZyrTEC) 10 mg HS PO 09/27/21 21:00 09/27/21 20:56 Oxybutynin Chloride (Ditropan) 5 mg [id number] PO 09/27/21 09:00 09/27/21 20:56 Lactobacillus Rhamnosus (Culturelle) 1 cap BID PO 09/27/21 21:00 09/27/21 20:56 I have reviewed the current psychotropics carefully including drug interactions. Risk benefit ratio favors no change other than as noted in my dictated progress note. JG URIBE MD Sep 27, 2021 22:15
[2021-09-27 23:00] VITALS: BP 114/77
--- NOTE | 2021-09-27 23:09 | PN ---
DATE: 09/27/2021 SUBJECTIVE: The patient is resting, slightly propped up in bed, in no apparent respiratory distress. He is awake, alert, continues to have this paranoid delusion about his brother attempting to harm him and get him out of that apartment he lives in; however, he denied any other complaint. PHYSICAL EXAMINATION: GENERAL: When I examined him, he was pale, not jaundiced, cyanosed, no lymphadenopathy, no thyromegaly, no jugular venous distention. No lower limb edema. VITAL SIGNS: His heart rate was 82. His blood pressure was 126/63, temperature was 98.4, respiratory rate 20, and oxygen saturation was 100% on room air. HEAD, EYES, EARS, NOSE AND THROAT: Normocephalic, atraumatic. NECK: Supple. HEART: Showed normal first and second heart sounds. No gallop, rub or murmur. CHEST: Clear to auscultation. No crepitation or rhonchi. ABDOMEN: Distended, soft, nontender. NEUROLOGIC: He is awake, alert; however, he is delusional. All his cranial nerves are intact. He moves extremities without difficulty. He ambulates without assistance or assistive devices. His intake over the last 24 hours was 320, output 250. LABORATORY DATA: His lab work this morning showed a white cell count 5400, hemoglobin 14, hematocrit 44, MCV 99 and platelet count of 71,000. His serum sodium was 141, potassium 4, chloride 107, bicarbonate 24, anion gap of 10, BUN 7, creatinine 1, estimated GFR was 88 mL per minute. His glucose was 78. His calcium was 8.2, magnesium was 1.6. His total bilirubin is 1.6. AST, ALT, alkaline phosphatase were normal. Total protein 6.4, albumin 3.2. Urinalysis is positive for leukocyturia and has also yeast in his urine. ASSESSMENT: This is a 75-year-old -Faroese male patient who was admitted with altered mental status. He has paranoid delusions, stating that his brother who lives in the apartment above him is annoying him deliberately to get him out of there. He also had suicidal ideation and he apparently has a plan to take a bunch of pills to kill himself. The patient was continued on all his medications including psychotropic medication as he is on Geodon 60 mg daily. The patient has a multitude of other medical problems including: A. Hypertension. B. Hyperlipidemia. C. Benign prostatic hypertrophy. D. History of nephrolithiasis. E. Hypothyroidism. F. Bronchial asthma. G. Morbid obesity, obstructive sleep apnea, on CPAP. H. Deep vein thrombosis for which he is on apixaban. PLAN: My plan is to continue with all his current medication. I will repeat his labs again tomorrow and we have already consulted Dr. Silva to evaluate the patient. ALBERTO DR: Annia TID: [id number]
--- NOTE | 2021-09-28 00:26 | CONS ---
DATE OF CONSULTATION: 09/27/2021 PSYCHIATRIC CONSULTATION This note covers elements not covered in my initial note, 09/27/2021. IDENTIFYING DATA: The patient is a 75-year-old Afro-Malagasy male was seen in bed 105, [facility] for a telehealth consult requested by Dr. Nelson after the patient was admitted with acute mental status changes and a UTI. At the time of admission, he had voiced suicidal ideation with a plan because he was frustrated living at the same [facility] that his brother has been living in for the past 10 years. The patient just entered the [facility] 6 months back. The patient seen individually, discussed with the DAVIAN Steel. Reviewed the chart. Earlier in the day, received information from DAVIAN Lehman. CHIEF COMPLAINT: "As said I wanted to kill myself to the doctor, but I would not do that. I can't live in the same facility as my brother. We did not get along when he was growing up. We are on 2 different floors, but it is still very difficult. I want to change." HISTORY OF PRESENT ILLNESS: The patient presented to the Emergency Room for a psychiatric evaluation. He presented with altered mental status. Reportedly, he has been living at a nursing facility and saw the nurse practitioner on the morning of admission and then was referred to the ER. The patient has been losing track of thought and time. I have reviewed the records from Dr. Nelson. He does have a past history of anxiety and hypertension. Labs in the ER, CBC and CMP were unremarkable. CT head was unremarkable. UA showed up to 40 WBCs and small amount of leukocyte esterase. The suicidal ideation reportedly voiced was by taking an overdose of medication. He states he has had this thought in the past as well, but never acted out on it. He states his brother lives one floor for above him and continues to try to annoy him, i.e., the patient states they had conflicts growing up and he would rather move to different facility. PAST PSYCHIATRIC HISTORY: As above. MEDICAL HISTORY: UTI, hypertension, hyperlipidemia, BPH, history of nephrolithiasis, hypothyroidism, bronchial asthma, morbid obesity, obstructive sleep apnea on CPAP, and osteoarthritis. PAST SURGICAL HISTORY: Inguinal hernia repair, colonoscopy, decompression sigmoid volvulus and partial colectomy. ALLERGIES: PENICILLIN, SULFA, CIPRO, DOXYCYCLINE, IBUPROFEN, SULFAMETHOXAZOLE, TRIMETHOPRIM, FLOMAX, TOLTERODINE, TRAZODONE, TRIMETHOPRIM. FAMILY HISTORY: He has two brothers who are still alive and healthy; 2 sisters, both , one from DVT and PE and his younger sister because of drug overdose, one brother of alcoholism. Father at 95 because of bladder cancer. Mother at age 95. SOCIAL HISTORY: The patient is single, never , has no children. No alcohol, drug abuse. Although, he states he used to use alcohol socially in the past. He reportedly worked for [employer] at [employer] and also at [employer] in the kitchen. MENTAL STATUS EXAM: The patient was seen on tele health visit given the COVID situation/pandemic. He was aware of the year is 2021, month is September. He knew where he was. Speech is somewhat difficult to understand at times. Abstraction fair. Computation impaired. Language function intact. Mood is somewhat anxious. He is somewhat distractable, depressed. No current suicidal or homicidal ideation and I questioned him closely on this. LABORATORY DATA: Reviewed. IMPRESSION: 1. Adjustment disorder with depressed mood and anxiety versus major depressive disorder. 2. Urinary tract infection. Rest diagnoses as above. RECOMMENDATIONS: From a psychiatric standpoint, the patient is on Geodon 60 mg a day, Ambien 5 mg at bedtime p.r.n. Given some of his mood symptoms and obsessive, ruminative thought processes, I would suggest starting an SSRI, perhaps Zoloft 50 mg a day, increasing in 7 days to 75 mg a day and another 7 days later to 100 mg a day. I leave this as a suggestion for Dr. Nelson to consider. He may continue Geodon 60 mg a day, Ambien 5 mg at bedtime p.r.n. insomnia. Reports suggest a school social worker communicating with assisted living/[facility] about the situation with his brother to see if there is any veracity to the perception patient has shared and whether there are any options to limit the contact if that is what worsens his stress. It will also benefit, trying to start psychotherapy with a psychologist at the facility. Again, at this time, he denies active suicidal ideation. Dr. Nelson thank you for the opportunity to participate in your patient's care. We will follow with you. NAVIN DR: Belkis TID: [id number]
[2021-09-28 05:04] VITALS: BP 105/66
[2021-09-28] MEDS: LEVOTHYROXINE 125 MCG TABLET PO SCH (05:06)
[2021-09-28 06:02] VITALS: BP 105/66
[2021-09-28 08:06] LABS: BASO % 1 % (0-3); EOS # 0.3 x10^3/uL (0.0-0.7); EOS % 5 % (0-3); HEMATOCRIT 41.5 % (39.0-53.0); HEMOGLOBIN 13.9 g/dL (13.0-17.5); LYMPH # 1.4 x10^3/uL (1.0-4.8); LYMPH % 26 % (24-48); MEAN CORPUSCULAR HEMOGLOBIN 31 pg (25-35); MEAN CORPUSCULAR HGB CONC 34 g/dL (31-37); MEAN CORPUSCULAR VOLUME 93 fL (79-100); MONO # 0.6 x10^3/uL (0.0-1.1); MONO % 11 % (0-9); NEUT # 3.1 x10^3uL (1.8-7.7); NEUT % 58 % (31-73); PLATELET COUNT 151 x10^3/uL (140-400); RED BLOOD COUNT 4.44 x10^6/uL (4.30-5.70); RED CELL DISTRIBUTION WIDTH 13.9 % (11.5-14.5); WHITE BLOOD COUNT 5.4 x10^3/uL (4.0-11.0)
[2021-09-28] MEDS: LACTOBACILLUS RHAMNOSUS GG 1 CAPSULE. PO SCH ×2 (08:08→21:12)
[2021-09-28] MEDS: DORZOLAMIDE 2% OPHTH SOLUTION 10ML BOTTLE. OU SCH (08:08)
[2021-09-28] MEDS: OXYBUTYNIN CHLORIDE 5 MG TABLET PO SCH ×3 (08:09→21:11)
[2021-09-28] MEDS: APIXABAN 5 MG TABLET. PO SCH (08:09)
[2021-09-28] MEDS: POTASSIUM CHLORIDE 20 MEQ TABLET.ER. PO SCH (08:09)
[2021-09-28] MEDS: GABAPENTIN 300 MG CAPSULE. PO SCH ×3 (08:09→21:12)
[2021-09-28] MEDS: FINASTERIDE 5 MG TABLET. PO SCH (08:09)
[2021-09-28] MEDS: FUROSEMIDE 20 MG TABLET PO SCH (08:10)
[2021-09-28] MEDS: LUBIPROSTONE 24 MCG CAPSULE PO SCH ×2 (08:10→17:33)
[2021-09-28 08:19] LABS: ALBUMIN 3.1 g/dL (3.4-5.0); ALBUMIN/GLOBULIN RATIO 0.9 (1.0-1.7); CALCIUM 8.6 mg/dL (8.5-10.1); CREATININE 0.8 mg/dL (0.7-1.3); GFR 114.3; TOTAL BILIRUBIN 1.3 mg/dL (0.2-1.0); TOTAL PROTEIN 6.4 g/dL (6.4-8.2)
[2021-09-28 10:55] VITALS: BP 122/73
--- NOTE | 2021-09-28 14:05 | PN ---
DATE: 09/28/2021 SUBJECTIVE: The patient is resting, slightly propped up in bed, in no apparent distress. He is awake, alert. On questioning him, he denied any complaint except that he is unsteady on his feet. He managed to walk to the bathroom, had a bowel movement according to him when I examined him. PHYSICAL EXAMINATION: GENERAL: He looked well and was clearly in no apparent respiratory distress. No pallor, jaundice, cyanosis or thyromegaly. No jugular venous distention. No limb edema. VITAL SIGNS: His heart rate was 47, blood pressure is 122/73, temperature 97.6, respiratory rate was 18 and oxygen saturation was 98%. HEAD, EYES, EARS, NOSE, AND THROAT: Normocephalic, atraumatic. NECK: Supple. HEART: Showed normal first and second heart sounds. No gallop or murmur. CHEST: Clear to auscultation. No crepitation or rhonchi. ABDOMEN: Distended, soft, nontender. NEUROLOGIC: He was grossly intact. His intake over the last 24 and output are incompletely recorded. LABORATORY DATA: This morning showed a white cell count 5400, hemoglobin 14, hematocrit 42, MCV 93, and platelet count of 151,000. Serum sodium 145, potassium 4, chloride 110, bicarbonate 27, anion gap of 8, BUN 9, creatinine 0.8. Estimated GFR was 114 mL per minute. His glucose 76, calcium was 8.6, total bilirubin is 1.3. AST, ALT, alkaline phosphatase were normal. Total protein 6.4, albumin 3.1. ASSESSMENT: 1. This is a 75-year-old -Czech male patient who was admitted with altered mental status. He has paranoid delusions, stating that his brother who lives in the apartment above him, is annoying him deliberately to get him out of there. 2. Suicidal ideation and apparently has a plan to take a bunch of pills to kill himself. 3. The patient has multiple other medical problems including; A. Hypertension. B. Hyperlipidemia. C. Benign prostatic hypertrophy. D. History of nephrolithiasis. E. Hypothyroidism. F. Bronchial asthma. G. Morbid obesity and obstructive sleep apnea, on CPAP. H. Deep vein thrombosis for which he is on apixaban. 4. Possible urinary tract infection. Apparently, he was seen by Dr. Silva, and he denied any suicidal ideation. TRACIE/LUCILA/JHONY DR: Annia TID: [id number]
[2021-09-28 15:00] VITALS: BP 109/63
[2021-09-28] MEDS: ZIPRASIDONE 60 MG CAPSULE. PO SCH (17:33)
[2021-09-28 19:15] VITALS: BP 110/69
[2021-09-28] MEDS: LATANOPROST 0.005% OPHTH SOLUTION 2.5ML BOTTLE. OU SCH (21:00)
[2021-09-28] MEDS: CETIRIZINE HCL 10 MG TABLET PO SCH (21:11)
[2021-09-28] MEDS: TERAZOSIN 5 MG CAPSULE. PO SCH (21:12)
--- NOTE | 2021-09-28 21:38 | PDOC ---
Exam Note: Taye Note: Please also refer to the separate dictated note~for this date of service dictated separately.~Patient seen individually. Discussed the patient with Nursing staff reviewed the chart.~Reviewed interim history and current functioning. Reviewed vital signs,~Labs/ Radiology~and current medications noted below. Continue current treatment with the changes noted in the dictated addendum note Assessment: Vital Signs/I&O: Vital Signs Date Time Temp Pulse Resp B/P (MAP) Pulse Ox O2 Delivery O2 Flow Rate FiO2 09/28/21 21:12 74 109/63 09/28/21 15:00 97.6 16 97 Room Air I & O 09/27/21 09/27/21 09/28/21 15:00 23:00 07:00 Intake Total 600 ml 240 ml 1240 ml Output Total 200 ml 950 ml 200 ml Balance 400 ml -710 ml 1040 ml Labs: Laboratory Tests Test 09/28/21 06:25 White Blood Count 5.4 x10^3/uL (4.0-11.0) Red Blood Count 4.44 x10^6/uL (4.30-5.70) Hemoglobin 13.9 g/dL (13.0-17.5) Hematocrit 41.5 % (39.0-53.0) Mean Corpuscular Volume 93 fL (79-100) # Mean Corpuscular Hemoglobin 31 pg (25-35) Mean Corpuscular Hemoglobin Concent 34 g/dL (31-37) Red Cell Distribution Width 13.9 % (11.5-14.5) Platelet Count 151 x10^3/uL (140-400) # Neutrophils (%) (Auto) 58 % (31-73) Lymphocytes (%) (Auto) 26 % (24-48) Monocytes (%) (Auto) 11 % (0-9) H Eosinophils (%) (Auto) 5 % (0-3) H Basophils (%) (Auto) 1 % (0-3) Neutrophils # (Auto) 3.1 x10^3uL (1.8-7.7) Lymphocytes # (Auto) 1.4 x10^3/uL (1.0-4.8) Monocytes # (Auto) 0.6 x10^3/uL (0.0-1.1) Eosinophils # (Auto) 0.3 x10^3/uL (0.0-0.7) Basophils # (Auto) 0.0 x10^3/uL (0.0-0.2) Sodium Level 145 mmol/L (136-145) Potassium Level 4.0 mmol/L (3.5-5.1) Chloride Level 110 mmol/L (98-107) H Carbon Dioxide Level 27 mmol/L (21-32) Anion Gap 8 (6-14) Blood Urea Nitrogen 9 mg/dL (8-26) Creatinine 0.8 mg/dL (0.7-1.3) Estimated GFR (Cockcroft-Gault) 114.3 BUN/Creatinine Ratio 11 (6-20) Glucose Level 76 mg/dL (70-99) Calcium Level 8.6 mg/dL (8.5-10.1) Total Bilirubin 1.3 mg/dL (0.2-1.0) H Aspartate Amino Transferase (AST) 19 U/L (15-37) Alanine Aminotransferase (ALT) 13 U/L (16-63) L Alkaline Phosphatase 66 U/L (46-116) Total Protein 6.4 g/dL (6.4-8.2) Albumin 3.1 g/dL (3.4-5.0) L Albumin/Globulin Ratio 0.9 (1.0-1.7) L Current Medications: Meds: Laboratory Tests Test 09/28/21 06:25 White Blood Count 5.4 x10^3/uL Red Blood Count 4.44 x10^6/uL Hemoglobin 13.9 g/dL Hematocrit 41.5 % Mean Corpuscular Volume 93 fL Mean Corpuscular Hemoglobin 31 pg Mean Corpuscular Hemoglobin Concent 34 g/dL Red Cell Distribution Width 13.9 % Platelet Count 151 x10^3/uL Neutrophils (%) (Auto) 58 % Lymphocytes (%) (Auto) 26 % Monocytes (%) (Auto) 11 % Eosinophils (%) (Auto) 5 % Basophils (%) (Auto) 1 % Neutrophils # (Auto) 3.1 x10^3uL Lymphocytes # (Auto) 1.4 x10^3/uL Monocytes # (Auto) 0.6 x10^3/uL Eosinophils # (Auto) 0.3 x10^3/uL Basophils # (Auto) 0.0 x10^3/uL Sodium Level 145 mmol/L Potassium Level 4.0 mmol/L Chloride Level 110 mmol/L Carbon Dioxide Level 27 mmol/L Anion Gap 8 Blood Urea Nitrogen 9 mg/dL Creatinine 0.8 mg/dL Estimated GFR (Cockcroft-Gault) 114.3 BUN/Creatinine Ratio 11 Glucose Level 76 mg/dL Calcium Level 8.6 mg/dL Total Bilirubin 1.3 mg/dL Aspartate Amino Transf (AST/SGOT) 19 U/L Alanine Aminotransferase (ALT/SGPT) 13 U/L Alkaline Phosphatase 66 U/L Total Protein 6.4 g/dL Albumin 3.1 g/dL Albumin/Globulin Ratio 0.9 Current Medications Medications (Trade) Dose Ordered Sig/Nadege Route PRN Reason Start Time Stop Time Status Last Admin Dose Admin Meropenem 1 gm/ Sodium Chloride 100 ml @ 200 mls/hr Q8HRS IV 09/26/21 22:00 09/26/21 16:48 DC Ceftriaxone Sodium (Rocephin Im) 1 gm 1X ONCE IM 09/26/21 17:00 09/26/21 17:01 DC 09/26/21 17:10 Sodium Chloride 1,000 ml @ 75 mls/hr [id number] IV 09/26/21 17:15 09/26/21 22:56 DC Ceftriaxone Sodium 1 gm/ Sodium Chloride 50 ml @ 100 mls/hr 1X ONCE IV 09/26/21 17:15 09/26/21 17:44 DC Ceftriaxone Sodium 1 gm/ Sodium Chloride 50 ml @ 100 mls/hr 1X ONCE IV 09/27/21 17:00 09/27/21 17:29 DC 09/27/21 18:06 Sodium Chloride 1,000 ml @ 75 mls/hr [id number] IV 09/26/21 23:00 09/27/21 22:59 DC 09/27/21 11:52 Finasteride (Proscar) 5 mg DAILY PO 09/27/21 09:00 09/28/21 08:09 Furosemide (Lasix) 20 mg DAILY PO 09/27/21 09:00 09/28/21 08:10 Gabapentin (Neurontin) 300 mg TID PO 09/27/21 09:00 09/28/21 21:12 Latanoprost (Xalatan) 1 drop QHS OU 09/27/21 21:00 09/28/21 21:00 Levothyroxine Sodium (Synthroid) 125 mcg DAILY06 PO 09/27/21 07:00 09/28/21 05:06 Potassium Chloride (Klor-Con) 20 meq DAILY PO 09/27/21 09:00 09/28/21 08:09 Terazosin HCl (Hytrin) 5 mg QHS PO 09/27/21 21:00 09/28/21 21:12 Ziprasidone (Geodon) 60 mg DAILY16 PO 09/27/21 16:00 09/28/21 17:33 Apixaban (Eliquis) 5 mg BID PO 09/27/21 09:00 Hold 09/28/21 08:09 Dorzolamide HCl (Trusopt) 1 drop DAILY OU 09/27/21 09:00 09/28/21 08:08 Lubiprostone (Amitiza) 24 mcg BIDWMEALS PO 09/27/21 08:00 09/28/21 17:33 Cetirizine HCl (ZyrTEC) 10 mg HS PO 09/27/21 21:00 09/28/21 21:11 Oxybutynin Chloride (Ditropan) 5 mg [id number] PO 09/27/21 09:00 09/28/21 21:11 Zolpidem Tartrate (Ambien) 5 mg PRN QHS PRN PO INSOMNIA, MAY REPEAT X1 09/27/21 07:00 09/28/21 21:12 Info (Anti-Coagulation Monitoring By Pharmacy) 1 each PRN DAILY PRN MC PER PROTOCOL 09/27/21 07:00 Lactobacillus Rhamnosus (Culturelle) 1 cap BID PO 09/27/21 21:00 09/28/21 21:12 I have reviewed the current psychotropics carefully including drug interactions. Risk benefit ratio favors no change other than as noted in my dictated progress note. Diagnosis: Problems: (1) Adjustment disorder with anxiety (2) Depressed mood (3) Major depressive disorder JG URIBE MD Sep 28, 2021 21:38
[2021-09-29] VITALS: BP 117/69
[2021-09-29 05:20] VITALS: BP 116/65
[2021-09-29] MEDS: LEVOTHYROXINE 125 MCG TABLET PO SCH (05:58)
--- NOTE | 2021-09-29 07:32 | PDOC ---
Exam Note: Taye Note: This note is a late entry for 09/28/2021 covers elements not covered in my initial note. Subjective: The patient was reviewed on 09/28/2021, discussed and reviewed the chart with nursing staff. Overall the patient has denied any suicidal ideation. He has been more awake, alert, appropriate. I met with him in his room. Review of Systems: Per nursing review, no CV, , pulmonary, eye, ENT system symptoms on review. Reliability poor. Mental Status Exam: Per nursing observation, the patient is oriented to himself and situation. Speech is coherent has some latency. Abstraction fair. Computation impaired. Language function intact. Mood and affect somewhat dysphoric and anxious. He does seemed better as the UTI is being treated. He denies suicidal ideation and I addressed this with him very closely and pe rsistently. He agrees to try and avoid his brother at the half-way but stated this was not easy. Laboratory Data: Reviewed. Impression: Major depressive disorder. Anxiety disorder unspecified. Mild cognitive impairment. UTI. Plan: From a psychiatric standpoint, I had suggested starting SSRIs and will defer this to Dr. Nelson. Nevertheless as the UTI seems to be responding to treatment, his mood appears better as well and again he denies suicidal ideation. Assessment: Vital Signs/I&O: Vital Signs Date Time Temp Pulse Resp B/P (MAP) Pulse Ox O2 Delivery O2 Flow Rate FiO2 09/29/21 05:20 98.0 53 20 116/65 (82) Room Air 97.0 09/29/21 00:00 98 I & O 09/28/21 09/28/21 09/29/21 15:00 23:00 07:00 Intake Total 600 ml 560 ml 340 ml Balance 600 ml 560 ml 340 ml Current Medications: I have reviewed the current psychotropics carefully including drug interactions. Risk benefit ratio favors no change other than as noted in my dictated progress note. Diagnosis: Problems: (1) Mild cognitive impairment (2) Anxiety disorder, unspecified (3) Major depressive disorder JG URIBE MD Sep 29, 2021 07:32
[2021-09-29] MEDS: LACTOBACILLUS RHAMNOSUS GG 1 CAPSULE. PO SCH (08:09)
[2021-09-29] MEDS: GABAPENTIN 300 MG CAPSULE. PO SCH (08:10)
[2021-09-29] MEDS: POTASSIUM CHLORIDE 20 MEQ TABLET.ER. PO SCH (08:11)
[2021-09-29] MEDS: FINASTERIDE 5 MG TABLET. PO SCH (08:11)
[2021-09-29] MEDS: OXYBUTYNIN CHLORIDE 5 MG TABLET PO SCH (08:11)
[2021-09-29] MEDS: DORZOLAMIDE 2% OPHTH SOLUTION 10ML BOTTLE. OU SCH (08:13)
[2021-09-29] MEDS: LUBIPROSTONE 24 MCG CAPSULE PO SCH (08:13)
[2021-09-29] MEDS: FUROSEMIDE 20 MG TABLET PO SCH (08:14)
[2021-09-29 10:26] VITALS: BP 110/60
--- NOTE | 2021-09-29 13:30 | DISCH ---
HOME HEALTH DISCHARGE/MEDS DISCHARGE INFORMATION: Discharge Date: Sep 29, 2021 Final Diagnosis: Problems Medical Problems: (1) Altered mental status Status: Acute (2) UTI (urinary tract infection) Status: Acute Condition on Discharge: Stable CODE STATUS: Code Status: Full HOME HEALTH: Face to Face: I certify this patient is under my care and that I, or a nurse practitioner or [employer] dental ceramist assistant working with me, had a face to face encounter that meets the physician face to face encounter requirements with this patient on 09/29/2021 Halfway For: Medication Management Physical Therapy For: Evalulation/Treatment Occupational Therapy For: Evaluation/Treatment POST DISCHARGE ORDERS: Activity Instructions for Disc: Activity as tolerated DIET AFTER DISCHARGE: Cardiac CERTIFICATION STATEMENT: Certification Statement: Based on the above finding, I certify that this patient is confined to the home and needs intermittent [facility] care, physical therapy and/or speech therapy, or continues to need occupational therapy.~ This patient is under my care, and I have initiated the establishment of the plan of care.~ This patient will be followed by myself or a community physician who will periodically review the plan of care. DISCHARGE MEDICATIONS: Home Meds Active Scripts Apixaban (Eliquis) 5 Mg Tab.ds.pk, 5 MG PO BID for DVT for 30 Days, #60 PKG 5 Refills Prov:WILLIAM SEGURA MD 06/20/21 Reported Medications Loratadine (CLARITIN) 10 Mg Capsule, 1 CAP PO HS for ALLERGIES for 30 Days, #30 CAP 0 Refills 09/26/21 Terazosin Hcl (TERAZOSIN HCL) 5 Mg Capsule, 1 CAP PO QHS for BPH, #30 CAP 5 Refills 09/26/21 Potassium Chloride (KLOR-CON 10) 10 Meq Tablet.er, 20 MEQ PO DAILY for supplement, TAB.SR 06/24/21 Furosemide (LASIX) 20 Mg Tablet, 20 MG PO DAILY for chf, TAB 06/24/21 Ziprasidone Hcl (GEODON) 40 Mg Capsule, 60 MG PO DAILY16 for behaviors, CAP 06/24/21 Brinzolamide (Brinzolamide) 15 Ml Drops.susp, 15 ML OU DAILY for glaucoma 06/24/21 Linaclotide (LINZESS) 145 Mcg Capsule, 145 MCG PO DAILY for IDIOPATHIC CONSTIPATION, CAP 06/18/21 Gabapentin (GABAPENTIN ) 300 Mg Capsule, 300 MG PO TID for NEUROGENIC PAIN, CAP 06/18/21 Latanoprost (XALATAN) 2.5 Ml Drops, 1 DROP OU QHS for GLAUCOMA, DROP 06/18/21 Zolpidem Tartrate (AMBIEN) 10 Mg Tablet, 10 MG PO PRN QHS PRN for INSOMNIA, TAB 0 Refills 06/18/21 Finasteride (FINASTERIDE) 5 Mg Tablet, 1 TAB PO DAILY for BPH LAST DOSE GIVEN: DATE: TODAY TIME: AM NEXT DOSE DUE: DATE: TOMORROW TIME: AM 06/29/18 Levothyroxine Sodium (LEVOTHYROXINE SODIUM) 125 Mcg Tablet, 1 TAB PO DAILY for THYROID HORMONE SUPPLEMENT LAST DOSE GIVEN: DATE: TODAY TIME: AM NEXT DOSE DUE: DATE: TOMORROW TIME: AM 06/29/18 Solifenacin Succinate (VESICARE) 5 Mg Tablet, 1 TAB PO DAILY for urge incontinence LAST DOSE GIVEN: DATE: TODAY TIME: AM NEXT DOSE DUE: DATE: TOMORROW TIME: AM 06/29/18 WILLIAM SEGURA MD Sep 29, 2021 13:30
--- NOTE | 2021-09-29 16:25 | DS ---
DATE OF DISCHARGE: 09/29/2021 HOSPITAL COURSE: The patient is a 75-year-old -Romanian male patient who was admitted with altered mental status and was found to have what seemed to be paranoid delusion. He has also some suicidal ideation for which he was seen by Dr. Silva and also the psych assessment team, and apparently felt that it is safe for him to be discharged home and will be discharged home on home health. He did have some mild hematuria yesterday. We held his apixaban. When I saw him today, his urine is clear. There is no evidence of any hematuria. PHYSICAL EXAMINATION: GENERAL: When I examined him, he looked well and was clearly in no apparent respiratory distress. There is no pallor, jaundice, cyanosis or thyromegaly. No jugular venous distention. No limb edema. VITAL SIGNS: His heart rate was 52, blood pressure was 110/60, temperature 97.4, respiratory rate was 16 and oxygen saturation was 98% on room air. HEAD, EYES, EARS, NOSE AND THROAT: Normocephalic, atraumatic. NECK: Supple. HEART: Showed normal first and second heart sounds. No gallop, rub or murmur. CHEST: Clear to auscultation. No crepitation or rhonchi. ABDOMEN: Distended, soft, nontender. NEUROLOGIC: He was grossly intact. His intake over the last 24 hours was 2100, the output was 1350. LABORATORY DATA: This morning showed a white cell count of 5400, hemoglobin 14, hematocrit 42, MCV 93 and platelet count of ____. His chemistry showed a serum sodium 145, potassium 4, chloride 110, bicarbonate 27, anion gap of 8, BUN 9, creatinine 0.8. Estimated GFR was 114 mL per minute. His glucose was 76, calcium was 8.6. Total bilirubin slightly elevated. AST, ALT, alkaline phosphatase were normal. Total protein 6.4, albumin 3.1. DISCHARGE MEDICATIONS: He was discharged home with home health to continue on apixaban 5 mg twice a day, brinzolamide 1 drop to both eyes daily, finasteride 5 mg once a day, furosemide 20 mg once a day, gabapentin 300 mg 3 times a day, latanoprost 1 drop to both eyes at bedtime, levothyroxine sodium 125 mcg once a day, linaclotide for Linzess 145 mcg once a day, loratadine 10 mg once a day at bedtime, potassium chloride 20 mEq once a day, solifenacin succinate for VESIcare 5 mg daily, terazosin 5 mg at bedtime, ziprasidone 60 mg daily and zolpidem tartrate for Ambien 10 mg at bedtime as needed for insomnia. FINAL DISCHARGE DIAGNOSES: 1. Paranoid delusion as well as suicidal ideation, resolved. 2. Hypertension. 3. Hyperlipidemia. 4. Benign prostatic hypertrophy. 5. Nephrolithiasis. 6. Hypothyroidism. 7. Bronchial asthma. 8. Morbid obesity and obstructive sleep apnea, on CPAP. 9. Deep vein thrombosis for which he is on apixaban. His urine culture was negative. TRACIE/RISHABH/EMI DR: Annia TID: [id number]
== END 2021-09-29 15:30 | disposition home health service (06) | DRG 690 ==
LOC: ER 12:58 → ER HOLD 17:13 → 1 SOUTH 20:13
PROVIDERS: ADMIT Internal Medicine; ATTEND Internal Medicine
DX: N39.0 Urinary tract infection, site not specified (principal); R45.851 Suicidal ideations; E03.9 Hypothyroidism, unspecified; E66.01 Morbid (severe) obesity due to excess calories; E78.5 Hyperlipidemia, unspecified; F22 Delusional disorders; F32.9 Major depressive disorder, single episode, unspecified; F43.22 Adjustment disorder with anxiety; G31.84 Mild cognitive impairment of uncertain or unknown etiology; G47.33 Obstructive sleep apnea (adult) (pediatric); I10 Essential (primary) hypertension; J45.909 Unspecified asthma, uncomplicated; M15.9 Polyosteoarthritis, unspecified; N20.0 Calculus of kidney; N40.0 Benign prostatic hyperplasia without lower urinary tract symptoms; F43.23 Adjustment disorder with mixed anxiety and depressed mood; Z80.52 Family history of malignant neoplasm of bladder; Z87.442 Personal history of urinary calculi; Z88.6 Allergy status to analgesic agent; Z88.1 Allergy status to other antibiotic agents; Z88.2 Allergy status to sulfonamides; Z88.8 Allergy status to other drugs, medicaments and biological substances; Z20.822 Contact with and (suspected) exposure to COVID-19
CPT/HCPCS: 36415; 70450; 71045; 80053; 81001; 84484; 85025; 85027; 87086; 87428; 93005; 96366; 96372; J0696; U0003; 99285-25; J7030

== ENCOUNTER → 2022-01-02 | Outpatient (CLI) | payer MEDICARE, OTHER ==
[~2022-01-02] MED LIST changes: +HALO2TAB PO; +LORA10CA PO; +MULT-445 PO; +SIMV20TA18 PO; +TERA5CAP3 PO; +VIBE75TA PO; +ZIPR20CA2 PO; +vitamin b12 PO
--- NOTE | 2022-01-02 11:40 | RAD ---
Exam: XR SHOULDER_RIGHT 2+ VIEWS History: Right shoulder pain, falls. Comparison: Chest x-ray 09/26/2021 Findings: Osseous mineralization is normal. No acute fracture or dislocation. Mild acromioclavicular and glenoh umeral degenerative changes. The subacromial space is preserved. Soft tissues are unremarkable. Degen erative changes in the thoracic spine. Impression: 1. Mild degenerative changes of the right shoulder without acute abnormality. Electronically signed by: Blade Montoya MD (01/02/2022 11:37 AM) [id number]
== END ==
LOC: RAD 10:25
PROVIDERS: ATTEND Physician Assistant
DX: M47.814 Spondylosis without myelopathy or radiculopathy, thoracic region (principal); M19.011 Primary osteoarthritis, right shoulder; M25.511 Pain in right shoulder
CPT/HCPCS: 73030